=== PATIENT | male | born 1940 | race Caucasian/White ===

== ENCOUNTER 2017-03-09 08:46 | Outpatient (CLI) | payer MEDICARE, OTHER ==
[2017-03-09 14:25] LABS: BASOPHILS # (AUTO) 0.1 10^3/uL (0.0-0.1); BASOPHILS % (AUTO) 0.8 %; EOSINOPHILS # (AUTO) 0.2 10^3/uL (0.0-0.7); EOSINOPHILS % (AUTO) 2.6 %; HCT - HEMATOCRIT 45.3 % (42.0-52.0); HGB - HEMOGLOBIN 15.6 g/dL (14.0-18.0); LYMPHOCYTES # (AUTO) 1.6 10^3/uL (1.5-3.5); LYMPHOCYTES % (AUTO) 22.2 %; MEAN CORPUSCULAR HEMOGLOBIN 33.1 pg (27.0-31.0); MEAN CORPUSCULAR HGB CONC 34.4 g/dL (32.0-36.0); MEAN CORPUSCULAR VOLUME 96.1 fL (80.0-94.0); MONOCYTES # (AUTO) 0.5 10^3/uL (0.0-1.0); MONOCYTES % (AUTO) 6.8 %; NEUTROPHILS # (AUTO) 4.8 10^3/uL (1.5-6.6); NEUTROPHILS % (AUTO) 67.6 %; NUCLEATED RED BLOOD CELLS AUTO 0.1 /100WBC; RED BLOOD COUNT 4.71 10^6/uL (4.70-6.10); RED CELL DISTRIBUTION WIDTH 13.3 % (12.0-15.0); UNCORRECTED WHITE BLOOD COUNT 7.1 x10^3/uL; WHITE BLOOD COUNT 7.1 x10^3/uL (4.8-10.8)
[2017-03-09 14:37] LABS: ALBUMIN/GLOBULIN RATIO 1.6 (1.0-2.2); BILIRUBIN,TOTAL 0.9 mg/dL (0.2-1.0); CALCIUM 10.2 mg/dL (8.5-10.3); CREATININE 0.8 mg/dL (0.6-1.2); POTASSIUM 4.5 mmol/L (3.5-5.0); TOTAL PROTEIN 6.9 g/dL (6.7-8.2)
== END 2017-03-09 08:47 | disposition home or self-care (01) ==
LOC: LAB.R 08:46
PROVIDERS: ATTEND Internal Medicine
DX: I10 Essential (primary) hypertension (principal); Z79.899 Other long term (current) drug therapy
CPT/HCPCS: 80053; 84443; 85025

== ENCOUNTER 2017-06-02 18:50 | Emergency (ER) | payer MEDICARE, OTHER ==
--- NOTE | 2017-06-02 19:57 | ED Physician Documentation ---
History of Present Illness - Stated complaint Stated Complaint: SORE THROAT - Chief complaint Chief Complaint: General - History obtained from History obtained from: Patient, Family - History of Present Illness Timing: Other (4 days of intermittently productive cough, body aches and subjective fevers and chills with sore throat mild rhinorrhea.) Review of Systems Constitutional: reports: Fever, Chills, Fatigue Ears: reports: Ear pain Nose: reports: Rhinorrhea / runny nose, Congestion Throat: reports: Sore throat Respiratory: reports: Cough. denies: Dyspnea GI: denies: Abdominal Pain PD PAST MEDICAL HISTORY - Past Medical History Cardiovascular: Hypertension Respiratory: None Endocrine/Autoimmune: None GI: None : None HEENT: Chronic hearing loss Psych: None Musculoskeletal: None Derm: None - Past Surgical History Past Surgical History: Yes General: Colonoscopy Ortho: Spine surgery Derm: Skin cancer surgery - Present Medications Home Medications: Ambulatory Orders Medication Instructions Recorded Confirmed Lisinopril [Zestril] 20 mg PO BID 09/13/13 06/02/17 Doxycycline Hyclate 20 mg PO DAILY 09/24/15 06/02/17 Amlodipine Besylate [Norvasc] 2.5 mg PO BID 06/02/17 06/02/17 Amox/Clav 875/125 [Augmentin] 1 each PO Q12H #20 tablet 06/02/17 Benzonatate [Tessalon] 200 mg PO TID PRN #20 capsule 06/02/17 Meloxicam 7.5 mg PO BID 06/02/17 06/02/17 - Allergies Allergies/Adverse Reactions: Allergies Allergy/AdvReac Type Severity Reaction Status Date / Time No Known Drug Allergies Allergy Verified 06/02/17 19:57 - Social History Does the pt smoke?: No Smoking Status: Never smoker Does the pt drink ETOH?: Yes Does the pt have substance abuse?: No PD ED PE NORMAL - Vitals Vital signs reviewed: Yes - General General: Alert and oriented X 3, No acute distress - HEENT HEENT: Pharynx benign. No: Ears normal (BOM) - Neck Neck: Supple, no meningeal sign, No bony TTP - Cardiac Cardiac: RRR, No murmur - Respiratory Respiratory: No respiratory distress, Clear bilaterally - Abdomen Abdomen: Non tender - Derm Derm: No rash - Neuro Neuro: Alert and oriented X 3, Normal speech - Psych Psych: Normal mood, Normal affect Results - Vitals Vitals: Vital Signs - 24 hr 06/02/17 18:54 Temperature 99.3 C H Heart Rate 70 Respiratory 18 Rate Blood Pressure 172/83 H O2 Saturation 97 Oxygen O2 Source Room air - Labs Labs: Laboratory Tests 06/02/17 19:48 Group A Strep Rapid Negative - Rads (name of study) 2v chest Radiology: EMP read contemporaneously (NAD) Departure - Departure Disposition: Home, Self Care Clinical Impression: BOM (bilateral otitis media) Qualifiers: Otitis media type: suppurative Chronicity: acute Recurrence: not specified as recurrent Spontaneous tympanic membrane rupture: without spontaneous rupture Qualified Code(s): H66.003 - Acute suppurative otitis media without spontaneous rupture of ear drum, bilateral Condition: Good Record reviewed to determine appropriate education?: Yes Instructions: ED Otitis Media Acute Adult Prescriptions: Amox/Clav 875/125 [Augmentin] 1 each PO Q12H #20 tablet Benzonatate [Tessalon] 200 mg PO TID PRN #20 capsule PRN Reason: Cough Comments: Call your doctor to arrange a follow-up appointment, make the next available appointment. In the interim, return anytime if worse or if new symptoms develop. Your blood pressure was elevated today on check into the emergency department. This does not mean that you have hypertension, it is a common phenomenon to come to the emergency department and have elevated blood pressure. I recommend that she see her primary care physician within the week to have it rechecked when you are feeling better.
[2017-06-02 20:08] LABS: RAPID STREP SCREEN REAGENT QC YELLOW (YELLOW)
--- NOTE | 2017-06-02 21:07 | XRAY Preliminary Report ---
Exam: XR Chest 2 View PA/LAT IMPRESSION: No acute intrathoracic plain film abnormality. [facility] SITE ID: [id number]
--- NOTE | 2017-06-02 21:10 | XRAY Report ---
EXAM: CHEST RADIOGRAPHY EXAM DATE: 06/02/2017 08:25 PM. CLINICAL HISTORY: COUGH. COMPARISON: 09/13/2013. TECHNIQUE: 2 views. FINDINGS: Lungs/Pleura: No focal opacities evident. No pleural effusion. No pneumothorax. Normal volumes. Mediastinum: Heart and mediastinal contours are unremarkable. Other: None. IMPRESSION: No acute intrathoracic plain film abnormality. [facility] Referring Provider Line: [phone] SITE ID: [id number]
[2017-06-02] MEDS ORDERED: AMOX/CLAV 875 MG/125 MG TABLET PO STA (21:11)
[2017-06-02] MEDS ORDERED: BENZONATATE 100 MG CAPSULE PO STA (21:15)
[2017-06-02] MEDS ORDERED: AMOX/CLAV 875 MG/125 MG TABLET PO ONE ×2 (21:37)
[2017-06-02] MEDS ORDERED: BENZONATATE 100 MG CAPSULE PO ONE (21:37)
[2017-06-02 21:46] VITALS: BP 146/83
== END 2017-06-02 21:42 | disposition home or self-care (01) ==
LOC: ED 18:50
DX: H66.003 Acute suppurative otitis media without spontaneous rupture of ear drum, bilateral (principal); I10 Essential (primary) hypertension; H91.90 Unspecified hearing loss, unspecified ear
CPT/HCPCS: 71020; 87070; 87430; 99282; 99283; A9270

== ENCOUNTER 2018-03-08 08:00 | Outpatient (CLI) | payer MEDICARE, OTHER ==
[2018-03-08 15:09] LABS: BASOPHILS % (AUTO) 0.6 %; EOSINOPHILS # (AUTO) 0.2 10^3/uL (0.0-0.7); EOSINOPHILS % (AUTO) 2.5 %; HGB - HEMOGLOBIN 16.2 g/dL (14.0-18.0); LYMPHOCYTES % (AUTO) 29.4 %; MEAN CORPUSCULAR HEMOGLOBIN 33.2 pg (27.0-31.0); MEAN CORPUSCULAR HGB CONC 34.3 g/dL (32.0-36.0); MEAN CORPUSCULAR VOLUME 96.7 fL (80.0-94.0); MEAN PLATELET VOLUME 9.5 fL (7.4-11.4); MONOCYTES # (AUTO) 0.5 10^3/uL (0.0-1.0); MONOCYTES % (AUTO) 7.6 %; NEUTROPHILS # (AUTO) 4.2 10^3/uL (1.5-6.6); NEUTROPHILS % (AUTO) 59.9 %; PLT - PLATELET COUNT 161 10^3/uL (130-450); RED BLOOD COUNT 4.88 10^6/uL (4.70-6.10); RED CELL DISTRIBUTION WIDTH 12.7 % (12.0-15.0); WHITE BLOOD COUNT 6.9 x10^3/uL (4.8-10.8)
[2018-03-08 15:24] LABS: ALBUMIN 4.2 g/dL (3.2-5.5); ALBUMIN/GLOBULIN RATIO 1.3 (1.0-2.2); ALKALINE PHOSPHATASE 43 IU/L (42-121); ALT ALANINE AMINOTRANSFERASE 34 IU/L (10-60); AST ASPARTATE AMINOTRANSFERASE 27 IU/L (10-42); BILIRUBIN,TOTAL 1.1 mg/dL (0.2-1.0); BUN - BLOOD UREA NITROGEN 19 mg/dL (6-20); CALCIUM 10.2 mg/dL (8.5-10.3); CARBON DIOXIDE - CO2 28 mmol/L (21-32); CHLORIDE 99 mmol/L (101-111); CHOL/HDL RATIO 5.5 (<5.0); CHOLESTEROL 182 mg/dL; CREATININE 0.8 mg/dL (0.6-1.2); GFR - MDRD 94 (>89); GLUCOSE 112 mg/dL (70-100); HDL CHOLESTEROL 33 mg/dL; LDL CHOLESTEROL,CALCULATED 99 mg/dL; SODIUM 133 mmol/L (135-145); TOTAL PROTEIN 7.4 g/dL (6.7-8.2); VLDL CHOLESTEROL 50 mg/dL
== END 2018-03-08 08:01 ==
LOC: LAB.R 08:00
PROVIDERS: ATTEND Internal Medicine
DX: E78.5 Hyperlipidemia, unspecified (principal); R51 Headache; I10 Essential (primary) hypertension; Z79.899 Other long term (current) drug therapy
CPT/HCPCS: 80053; 80061; 83721; 85025

== ENCOUNTER 2018-03-25 07:59 | Outpatient (CLI) | payer MEDICARE, OTHER ==
[2018-03-25 14:42] LABS: HB2 TOTAL 17.9 g/dL; HEMOGLOBIN A1C 0.68 g/dL; HEMOGLOBIN A1C % 5.6 % (4.6-6.2)
== END 2018-03-25 08:00 | disposition home or self-care (01) ==
LOC: LAB.R 07:59
PROVIDERS: ATTEND Internal Medicine
DX: R73.9 Hyperglycemia, unspecified (principal)
CPT/HCPCS: 82947; 83036

== ENCOUNTER 2019-11-02 10:37 | Outpatient (CLI) | payer MEDICARE, OTHER ==
[2019-11-02 11:22] LABS: EOSINOPHILS % (AUTO) 0.5 %; HGB - HEMOGLOBIN 14.2 g/dL (14.0-18.0); LYMPHOCYTES % (AUTO) 52.4 %; MEAN CORPUSCULAR HEMOGLOBIN 34.1 pg (27.0-31.0); MEAN CORPUSCULAR HGB CONC 34.5 g/dL (32.0-36.0); MEAN CORPUSCULAR VOLUME 98.8 fL (80.0-94.0); MEAN PLATELET VOLUME 9.8 fL (7.4-11.4); MONOCYTES # (AUTO) 0.1 10^3/uL (0.0-1.0); MONOCYTES % (AUTO) 3.7 %; NEUTROPHILS # (AUTO) 0.8 10^3/uL (1.5-6.6); NEUTROPHILS % (AUTO) 42.9 %; PLT - PLATELET COUNT 113 10^3/uL (130-450); RED BLOOD COUNT 4.17 10^6/uL (4.70-6.10); RED CELL DISTRIBUTION WIDTH 13.9 % (12.0-15.0)
[2019-11-02 11:30] LABS: WHITE BLOOD COUNT 1.9 x10^3/uL (4.8-10.8)
[2019-11-02 11:41] LABS: ALBUMIN 4.2 g/dL (3.2-5.5); ALBUMIN/GLOBULIN RATIO 1.6 (1.0-2.2); ALKALINE PHOSPHATASE 39 IU/L (42-121); ALT ALANINE AMINOTRANSFERASE 39 IU/L (10-60); AST ASPARTATE AMINOTRANSFERASE 27 IU/L (10-42); BILIRUBIN,TOTAL 1.3 mg/dL (0.2-1.0); BUN - BLOOD UREA NITROGEN 24 mg/dL (6-20); CALCIUM 10.5 mg/dL (8.5-10.3); CARBON DIOXIDE - CO2 27 mmol/L (21-32); CHLORIDE 100 mmol/L (101-111); CHOL/HDL RATIO 5.2 (<5.0); CHOLESTEROL 183 mg/dL; CREATININE 0.8 mg/dL (0.6-1.2); GFR - MDRD 94 (>89); GLUCOSE 121 mg/dL (70-100); HDL CHOLESTEROL 35 mg/dL; LDL CHOLESTEROL,CALCULATED 111 mg/dL; LDL/HDL RATIO 3.2 (<3.6); SODIUM 135 mmol/L (135-145); TOTAL PROTEIN 6.9 g/dL (6.7-8.2); VLDL CHOLESTEROL 37 mg/dL
[2019-11-02 11:42] LABS: RBC MORPHOLOGY (MULTIPLE) 1+ ANISOCYTOSIS (NORMAL)
[2019-11-02 11:57] LABS: THYROID STIMULATING HORMONE 1.74 uIU/mL (0.34-5.60)
[2019-11-02 11:58] LABS: FREE T4 (FREE THYROXINE) 0.93 ng/dL (0.58-1.64)
[2019-11-02 12:01] LABS: FERRITIN 800.8 ng/mL (23.9-336.2)
== END 2019-11-02 10:38 | disposition home or self-care (01) ==
LOC: LAB 10:37
PROVIDERS: ATTEND Family Medicine
DX: G25.81 Restless legs syndrome (principal); M18.11 Unilateral primary osteoarthritis of first carpometacarpal joint, right hand; R73.9 Hyperglycemia, unspecified; E66.3 Overweight; E78.5 Hyperlipidemia, unspecified; I10 Essential (primary) hypertension
CPT/HCPCS: 36415; 80053; 80061; 82728; 83721; 84439; 84443; 84481; 85025

== ENCOUNTER 2019-11-07 10:31 | Outpatient (CLI) | payer MEDICARE, OTHER ==
[2019-11-07 11:11] LABS: EOSINOPHILS % (AUTO) 0.5 %; HGB - HEMOGLOBIN 13.2 g/dL (14.0-18.0); LYMPHOCYTES % (AUTO) 53.6 %; MEAN CORPUSCULAR HEMOGLOBIN 33.1 pg (27.0-31.0); MEAN CORPUSCULAR HGB CONC 33.9 g/dL (32.0-36.0); MEAN CORPUSCULAR VOLUME 97.5 fL (80.0-94.0); MEAN PLATELET VOLUME 10.3 fL (7.4-11.4); MONOCYTES % (AUTO) 2.6 %; NEUTROPHILS % (AUTO) 43.3 %; PLT - PLATELET COUNT 82 10^3/uL (130-450); RED BLOOD COUNT 3.99 10^6/uL (4.70-6.10); RED CELL DISTRIBUTION WIDTH 14.2 % (12.0-15.0)
[2019-11-07 11:32] LABS: PLATELET ESTIMATE, MANUAL DECREASED (<130,000) (NORMAL); PLATELET MORPHOLOGY NORMAL APPEARANCE (NORMAL); RBC MORPHOLOGY (MULTIPLE) NORMAL APPEARANCE (NORMAL)
[2019-11-07 11:37] LABS: WHITE BLOOD COUNT 1.9 x10^3/uL (4.8-10.8)
[2019-11-07 11:38] LABS: ABNORMAL LYMPHS % (MANUAL) 0 %; BAND NEUTROPHILS % (MANUAL) 0 %
[2019-11-07 11:39] LABS: DIFFERENTIAL COMMENT MANUAL DIFFERENTIAL; LYMPHOCYTES # (MANUAL) 0.9 10^3/uL (1.5-3.5); LYMPHOCYTES % (MANUAL) 49 %; MONOCYTES # (MANUAL) 0.2 10^3/uL (0.0-1.0)
== END 2019-11-07 10:32 | disposition home or self-care (01) ==
LOC: LAB 10:31
PROVIDERS: ATTEND Family Medicine
DX: J18.9 Pneumonia, unspecified organism (principal); G25.81 Restless legs syndrome; M18.11 Unilateral primary osteoarthritis of first carpometacarpal joint, right hand; R73.9 Hyperglycemia, unspecified; E78.5 Hyperlipidemia, unspecified; I10 Essential (primary) hypertension; D72.819 Decreased white blood cell count, unspecified
CPT/HCPCS: 36415; 85025

== ENCOUNTER 2020-01-31 08:00 | Outpatient (CLI) | payer MEDICARE, OTHER ==
[2020-01-31 16:49] LABS: HGB - HEMOGLOBIN 10.8 g/dL (14.0-18.0); LYMPHOCYTES # (AUTO) 0.4 10^3/uL (1.5-3.5); LYMPHOCYTES % (AUTO) 30.8 %; MEAN CORPUSCULAR HEMOGLOBIN 35.8 pg (27.0-31.0); MEAN CORPUSCULAR VOLUME 108.3 fL (80.0-94.0); MEAN PLATELET VOLUME 11.6 fL (7.4-11.4); MONOCYTES # (AUTO) 0.1 10^3/uL (0.0-1.0); MONOCYTES % (AUTO) 5.1 %; NEUTROPHILS # (AUTO) 0.7 10^3/uL (1.5-6.6); NEUTROPHILS % (AUTO) 62.4 %; PLT - PLATELET COUNT 36 10^3/uL (130-450); RED BLOOD COUNT 3.02 10^6/uL (4.70-6.10); RED CELL DISTRIBUTION WIDTH 16.1 % (12.0-15.0)
[2020-01-31 18:36] LABS: WHITE BLOOD COUNT 1.2 x10^3/uL (4.8-10.8)
[2020-01-31 18:51] LABS: PLATELET ESTIMATE, MANUAL DECREASED (<130,000) (NORMAL); PLATELET MORPHOLOGY NORMAL APPEARANCE (NORMAL)
[2020-01-31 18:52] LABS: DIFFERENTIAL COMMENT MANUAL=AUTO DIFF
== END 2020-01-31 23:59 | disposition home or self-care (01) ==
LOC: LAB.WCP 08:00
PROVIDERS: ATTEND Family Medicine
DX: D72.819 Decreased white blood cell count, unspecified (principal)
CPT/HCPCS: 36415; 85025

== ENCOUNTER 2020-04-09 09:44 | Outpatient (CLI) | payer MEDICARE, OTHER | END 2020-04-09 09:45 | disposition home or self-care (01) | LOC: RT 09:44 | PROVIDERS: ATTEND Internal Medicine Hematology & Oncology | DX: C92.40 Acute promyelocytic leukemia, not having achieved remission (principal); R29.6 Repeated falls | CPT/HCPCS: 93005 ==

== ENCOUNTER 2020-04-12 09:39 | Outpatient (CLI) | payer MEDICARE, OTHER | END 2020-04-12 09:40 | disposition home or self-care (01) | LOC: RT 09:39 | PROVIDERS: ATTEND Internal Medicine Cardiovascular Disease | DX: Z01.818 Encounter for other preprocedural examination (principal); Z20.828 Contact with and (suspected) exposure to other viral communicable diseases; Z79.899 Other long term (current) drug therapy; C92.40 Acute promyelocytic leukemia, not having achieved remission | CPT/HCPCS: 93005; U0004; 81599 ==

== ENCOUNTER 2020-04-14 11:24 | Outpatient (CLI) | payer MEDICARE, OTHER ==
[2020-04-14 12:04] LABS: BASOPHILS # (AUTO) 0.2 10^3/uL (0.0-0.1); BASOPHILS % (AUTO) 2.1 %; EOSINOPHILS # (AUTO) 0.3 10^3/uL (0.0-0.7); EOSINOPHILS % (AUTO) 2.8 %; HGB - HEMOGLOBIN 11.4 g/dL (14.0-18.0); LYMPHOCYTES # (AUTO) 1.4 10^3/uL (1.5-3.5); LYMPHOCYTES % (AUTO) 14.6 %; MEAN CORPUSCULAR HEMOGLOBIN 34.4 pg (27.0-31.0); MEAN CORPUSCULAR HGB CONC 32.6 g/dL (32.0-36.0); MEAN CORPUSCULAR VOLUME 105.7 fL (80.0-94.0); MEAN PLATELET VOLUME 10.4 fL (7.4-11.4); MONOCYTES # (AUTO) 1.1 10^3/uL (0.0-1.0); MONOCYTES % (AUTO) 11.3 %; NEUTROPHILS # (AUTO) 6.3 10^3/uL (1.5-6.6); NEUTROPHILS % (AUTO) 66.1 %; PLT - PLATELET COUNT 460 10^3/uL (130-450); RED BLOOD COUNT 3.31 10^6/uL (4.70-6.10); WHITE BLOOD COUNT 9.5 x10^3/uL (4.8-10.8)
== END 2020-04-14 11:25 | disposition home or self-care (01) ==
LOC: LAB 11:24
PROVIDERS: ATTEND Surgery
DX: Z01.812 Encounter for preprocedural laboratory examination (principal); C92.40 Acute promyelocytic leukemia, not having achieved remission
CPT/HCPCS: 36415; 85025; 86850; 86900; 86901

== ENCOUNTER 2020-04-16 06:34 | Day surgery (SDC) | payer MEDICARE, OTHER ==
[~2020-04-16 06:34] MED LIST: CEFAZOLIN SODIUM IN 0.9 % NACL 2 GM/100 ML BAG IV ONE
[2020-04-16] MEDS ORDERED: LIDOCAINE-MPF 2% 5 ML VIAL IM ONE (06:35)
[2020-04-16] MEDS ORDERED: PROPOFOL 200 MG/20 ML VIAL IVP ONE (06:35)
[2020-04-16] MEDS ORDERED: MIDAZOLAM 2 MG/2 ML VIAL IVP ONE (06:35)
[2020-04-16] MEDS ORDERED: KETAMINE 500 MG/10 ML VIAL IVP ONE (06:35)
[2020-04-16] MEDS ORDERED: LACTATED RINGERS 1,000 ML IV ONE (06:43)
[2020-04-16] MEDS ORDERED: BUPIVACAINE 0.5% PF 30 ML VIAL ONE (07:04)
[2020-04-16] MEDS ORDERED: LIDOCAINE 1% 50 ML MDV ONE (07:04)
[2020-04-16] MEDS ORDERED: LIDOCAINE 1%-EPI 1:100000 20 ML MDV ONE (07:04)
--- NOTE | 2020-04-16 07:14 | ANESTHESIA ---
Pre-Anesthesia VS, & Labs - Diagnosis acute promylocytic leukemia - Procedure port placement Vital Signs: Temp Pulse Resp BP Pulse Ox 36.7 C 71 16 137/78 H 99 04/16/20 06:44 04/16/20 06:44 04/16/20 06:44 04/16/20 06:44 04/16/20 06:44 Height 5 ft 10 in Weight (kg) 99 kg Body Mass Index 30.7 - NPO >8 hours Home Medications and Allergies Home Medications: Ambulatory Orders Ondansetron HCl [Zofran] 8 mg PO DAILY 04/16/20 Zolpidem Tartrate 7.5 mg PO DAILY 04/16/20 lisinopriL [Zestril] 20 mg PO BID 09/13/13 Meloxicam 7.5 mg PO BID 06/02/17 Furosemide [Lasix] 40 mg PO DAILY 04/09/20 Magnesium Oxide [Mag Ox] 400 mg PO DAILY 04/09/20 Potassium Chloride 20 meq PO DAILY 04/09/20 Ondansetron HCl [Zofran] 8 mg PO DAILY 04/16/20 Zolpidem Tartrate 7.5 mg PO DAILY 04/16/20 Allergies/Adverse Reactions: Allergies Allergy/AdvReac Type Severity Reaction Status Date / Time No Known Drug Allergies Allergy Verified 04/09/20 13:34 Anes History & Medical History - Anesthetic History Anesthesia Complications: reports: No previous complications Family history of Anesthesia Complications: Denies Family history of Malignant Hyperthermia: Denies - Medical History Cardiovascular: reports: Hypertension, Arrhythmia, Other Pulmonary: reports: None (quit in 1985) Gastrointestinal: reports: GI bleed, Colon polyps Urinary: reports: Retention Neuro: reports: None Musculoskeletal: reports: Osteoarthritis, Chronic back pain Endocrine/Autoimmune: reports: None Skin: reports: None Smoking Status: Former smoker Psychosocial: reports: No issues indicated - Surgical History General: Colonoscopy Orthopedic: Spine surgery Dermatologic: Skin cancer surgery Exam General: Alert, Oriented x3, Cooperative, No acute distress Dental: WNL Mouth Openin Fingerbreadth Neck Mobility: Normal Mallampati classification: II Thyromental Distance: 4-6 cm Respiratory: Lungs clear, Normal breath sounds, No respiratory distress, No accessory muscle use Cardiovascular: Regular rate, Normal S1, Normal S2, No murmurs Abdomen: Normal bowel sounds, Soft, No tenderness, No hepatospenomegaly, No masses Extremities: No clubbing, No cyanosis, No edema, Normal pulses, No tenderness/swelling Neurological: Normal gait, Normal speech, Strength at 5/5 X4 ext, Normal tone, Sensation intact, Cranial nerves 3-12 NL, Reflexes 2+ Mental/Cognitive Status: Alert/Oriented X3, Normal for patient Cognitive Status: Within normal limits Plan Anesthesia Type: General, MAC Consent for Procedure(s) Verified and Reviewed: Yes Code Status: Attempt Resuscitation ASA classification: 3-Severe systemic disease Is this case an emergency?: No
[2020-04-16] MEDS ORDERED: LIDOCAINE 1%-EPI 1:100000 20 ML MDV SUBQ ONE ×2 (07:19→08:46)
[2020-04-16] MEDS ORDERED: BUPIVACAINE 0.5% PF 30 ML VIAL SUBQ ONE ×2 (07:20→08:46)
[2020-04-16] MEDS ORDERED: SODIUM CHLORIDE 0.9% 10 ML ONE (07:20)
--- NOTE | 2020-04-16 09:10 | OPERATIVE REPORT ---
Operative Report - General Procedure Date: 04/16/20 Planned Procedure: Left Power Port Placement Pre-Op Diagnosis: Acute promyelocytic leukemia Procedure Performed: Left Power Port Placement Post Op Diagnosis: Acute promyelocytic leukemia - Procedure Note Primary Surgeon: Farhan Anesthesia Provider: Juliocesar Anesthesia Technique: Local, MAC Pathology: None Estimated Blood Loss (mL): 5 Findings: Port in good position Complications: None apparent - Other Other Information/Narrative: After obtaining informed consent, the patient is brought to the operating room and placed in supine position on the operating table. Following successful induction of sedation with monitored anesthesia care and appropriate padding of all bony prominences, the left chest and neck were prepped and draped in the standard surgical fashion. A timeout was held per scope protocol. All elements of the surgical safety checklist were followed before, during, and after the procedure. Following infiltration with local anesthetic to create a field block, the left subclavian vein was accessed in the deltopectoral groove. The J-wire was gently placed into the vein. Fluoroscopy was used to confirm the position of the wire and in the subclavian vein. We anesthetized the existing healed scar in the area around it for placement of the port itself. An incision was created here and carried down through the skin and subcutaneous tissue. A pocket was created with blunt dissection. The port tubing was attached to the tunneling device and passed from the access site of the vein into the pocket. It was trimmed to an appropriate length and the port attached. The port was sewn into place in the pocket. The dilator and introducer were then passed over the J-wire that was in the subclavian vein. The J-wire and dilator were removed leaving only the introducer. The tubing was then passed through the introducer and the introducer cracked and removed per route delivery supervisor's directions. The port was then checked for function and flushed and cathy easily. Additional local anesthetic was applied to the chest wall. The port pocket was closed with interrupted Vicryl sutures and Monocryl stitches were placed in both skin incision sites. All sponge, needle, and instrument counts were correct at the conclusion of the case. Chest x-ray in the postanesthesia care unit revealed the port in good po sition in the superior vena cava without evidence of pneumothorax.
[2020-04-16 09:33] VITALS: BP 134/65
--- NOTE | 2020-04-16 09:33 | XRAY Report ---
Reason: PORT PLACEMENT Procedure Date: 04/16/2020 Accession Number: [id number] / [id number] Procedure: FL - OR C-Arm Procedure CPT Code: Final Report FULL RESULT: PROCEDURE: OR C-Arm Procedure INDICATIONS: PORT PLACEMENT TECHNIQUE: Single spot fluoroscopic intraoperative view. COMPARISON: None. FINDINGS: Spot fluoroscopic intraoperative images demonstrating left chest port with the catheter tip projecting in the upper SVC. Reviewed by: Anthony John MD on 04/16/2020 9:32 AM PDT Approved by: Anthony John MD on 04/16/2020 9:32 AM PDT Station ID: [id number]
--- NOTE | 2020-04-16 10:06 | XRAY Report ---
PROCEDURE: Post Port Placement 1V CXR INDICATIONS: Left port TECHNIQUE: One view of the chest was acquired. COMPARISON: 06/02/2017 FINDINGS: Surgical changes and devices: Left chest wall Port-A-Cath tip is in SVC.. Lungs and pleura: No pleural effusions or pneumothorax. Mild pulmonary vascular congestion is seen. Small left pleural effusion/thickening is likely present. No definite focal infiltrate. There is mild pulmonary edema. Mediastinum: Mediastinal contours appear normal. Heart size is enlarged. Bones and chest wall: No suspicious bony lesions. Overlying soft tissues appear unremarkable. IMPRESSION: Left chest wall Port-A-Cath tip is in SVC. Mild congestive changes and mild pulmonary edema. No gross pneumothorax. Reviewed by: Stevenson Shepard MD on 04/16/2020 10:04 AM PDT Approved by: Stevenson Shepard MD on 04/16/2020 10:04 AM PDT Station ID: [id number]
== END 2020-04-16 06:35 | disposition home or self-care (01) ==
LOC: SDS 06:34
PROVIDERS: ATTEND Surgery
DX: C92.40 Acute promyelocytic leukemia, not having achieved remission (principal); D69.6 Thrombocytopenia, unspecified; I10 Essential (primary) hypertension; M19.90 Unspecified osteoarthritis, unspecified site; Z87.891 Personal history of nicotine dependence; Z79.52 Long term (current) use of systemic steroids; Z79.82 Long term (current) use of aspirin; Z79.1 Long term (current) use of non-steroidal anti-inflammatories (NSAID); Z79.899 Other long term (current) drug therapy
CPT/HCPCS: 36561; 71045; C1788; J0690; J7120

== ENCOUNTER 2020-04-16 09:51 | Outpatient (CLI) | payer MEDICARE, OTHER ==
--- NOTE | 2020-04-16 17:41 | CONSULTATION NOTE ---
Palliative Care Follow Up - Referral Referring Provider: Dr. Chu Jones Time of Visit: [id number] Referral setting: [facility] [place] Referral Reason: Anxiety/AML/Goals of care - Information Sources Records reviewed: RN notes reviewed, Previous records reviewed History/Review of Systems obtained from: Patient, Family (daughter Fany present and s/o Niik present) Exam limitations: Clinical condition (very [place]; just came from amb surgery) - History of Present Illness Update Brief HPI Update: This is a 79-year-old gentleman who is actually been in fairly good health, until he presented with abnormal blood test on 10/2019. His only symptom was increased fatigue and more activity intolerance. He went on to winter living in [place], but returned early because of COVID-19, and in follow-up with his primary, was found to have worsening labs on 01/31 2020 with a WBC of 1.2, hematocrit 33%, and platelets of 36. 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 His most recent bone marrow on 04/02 did show borderline molecular remission. He recently saw Dr. Rolle, and will continue with an evaluation, but does seem to be doing better. His only residual is lower extremity edema, he is somewhat anxious, and is to start his consolidation therapy today. He just had a port placed, is needing potassium replacement, and will also start his oral tretinoin. Palliative care is meeting with patient, to follow for symptom management, anticipatory guidance, and advanced care planning. Patient is somewhat overwhelmed with his current situation today, agreed we would just start with rapport building, as well as reviewed current support system. Social History - Living Situation Living arrangement: At home Living Situation: With spouse/s.o. Support System: Patient has long-term had a cabin on [address], and travels back and forth to the [place]. 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 He does have significant other Niki, they have been together for 14 years. He has 1 daughter Fany, who has been up providing support. Medications/Allergies - Medications Home Medications: Ambulatory Orders Medication Instructions Recorded Confirmed lisinopriL [Zestril] 20 mg PO BID 09/13/13 04/17/20 Furosemide [Lasix] 80 mg PO DAILY 04/09/20 04/17/20 Magnesium Oxide [Mag Ox] 400 mg PO DAILY 04/09/20 04/17/20 Potassium Chloride 20 meq PO DAILY 04/09/20 04/17/20 Lidocaine/Prilocain 2.5% Cream 30 applic TOP DAILY PRN #1 tube 04/16/20 04/17/20 [Emla 2.5% Cream] Ondansetron HCl [Zofran] 8 mg PO DAILY 04/16/20 04/17/20 Zolpidem Tartrate 7.5 mg PO DAILY 04/16/20 04/17/20 Acyclovir 400 mg PO BID 04/17/20 04/17/20 Aspirin 81 mg PO DAILY 04/17/20 04/17/20 Cholecalciferol (Vitamin D3) 1,000 units PO DAILY 04/17/20 04/17/20 [Vitamin D3] Naproxen [Naprosyn] 1 tab PO DAILY PRN 04/17/20 04/17/20 [place]-3/Dha/Epa/Fish Oil [Fish Oil 1,000 mg PO DAILY 04/17/20 04/17/20 1,000 mg Softgel] Omeprazole 20 mg PO DAILY 04/17/20 04/17/20 Tretinoin 50 mg PO BID 04/17/20 04/17/20 - Allergies Allergies/Adverse Reactions: Allergies Allergy/AdvReac Type Severity Reaction Status Date / Time No Known Drug Allergies Allergy Verified 04/09/20 13:34 Review of Systems - Constitutional Constitutional: reports: Fatigue, Weight stable. denies: Fever, Chills - Eyes Eyes: reports: Vision loss, Corrective lenses - Ears, Nose & Throat Ears, Nose & Throat: reports: Hearing loss, Hearing aids - Cardiovascular Cardiovascular: reports: Edema (new symptoms since hospitalization), Decr. exercise tolerance - Respiratory Respiratory: denies: Cough, SOB at rest - Gastrointestinal Gastrointestinal: reports: Good appetite. denies: Constipation, Diarrhea - Musculoskeletal Musculoskeletal: reports: Back pain, Stiffness, Muscle weakness - Integumentary Integumentary: reports: Dryness - Psychiatric Psychiatric: denies: Depression, Anxiety - Hematologic/Lymphatic Hematologic/Lymphatic: reports: Anemia - All Other Systems All Other Systems: reports: Reviewed and negative Physical Exam - Vital Signs Pulse Rate: 61 Respiratory Rate: 18 Blood Pressure: 134/71 - Physical Exam General Appearance: positive: Alert, Mild distress Eyes Bilateral: positive: Normal inspection ENT: positive: Hearing loss, Hearing aids, Dry mouth. negative: Mouth lesions Neck: positive: Trachea midline Cardiovascular: positive: Regular rate & rhythm Respiratory: positive: No respiratory distress Abdomen: positive: Non-tender, Soft Skin: positive: Pallor, Dryness, Other (right upper arm/old PICC site) Extremities: positive: Pedal edema (2+ bilateral) Neurologic/Psychiatric: positive: Oriented x3, Weakness, Flat affect, Other (coming off surgery) Palliative Care - POLST Patient has POLST: No Pain: Pain unchanged, Location (chronic back pain; worsens with prolonged sitting) Tiredness/Fatigue: None Drowsiness/Sedation: None Nausea: None Anorexia: None Dyspnea: None Depression: None Anxiety: None Feelings of wellbeing/Perceived Quality of Life: Good, Acceptable, Improved Sleep: Sleep improved Constipation: No Performance Status: Patient's activity tolerance is improving, he was quite deconditioned with his prolonged hospitalization. He is able to ambulate, and manage his own ADLs. He is to start physical therapy. - Palliative Care Discussion: Patient's summary of what is happening, is "it is what it is". His family support that this is often how he approaches things, quite pragmatically. He is somewhat surprised, as he has not felt sick, and has had multiple traumas related to his journey over the last few weeks. He is somewhat anxious today, has just received his port, trying to get his bearings about the what is next. He does feel well supported by his significant other and his daughter who is up providing support as well. Niki's significant other, is appropriately tearful, and concerned. They have been together for 14 years, it was quite difficult while he was in the hospital as he was not allowed visitors, and quite dependent on him providing information. His daughter Ivis, lives near [place], has been staying nearby to provide support, she has 3 children, they are going to come visit for the holiday weekend. Things have been quite fluctuating as far as emotionally and hoping things will settle down, as gets into routine. Results - Lab Results Lab results reviewed: Yes Impression and Recommendations - Palliative Care Impression: This is a memo 79-year-old gentleman with acute promyelocytic Jaimee, and intermediate risk group. He is starting consolidation therapy today, has had a complicated course up to this point. He presents with low symptom burden, concern for complications, and followed by cardiology. Palliative care to provide support for symptom management and anticipatory guidance. Recommendations/Counseling Done: 1. Anxiety. Patient starting consolidation therapy, concerns regarding future planning and what to expect, just had port placed and getting the plan of care in place. Counseling provided to normalize feelings of uncertainty and introduce the role of palliative care for both management of symptoms and psychosocial support. 2. Acute promyelocytic leukemia. Patient with fairly intense of treatment regimen, has had history of complications, will need continued monitoring. Is starting to recover, and hoping to return to baseline functional status. Remains with residual lower extremity edema and persistent fatigue. Continue to monitor. 3. PICC exit site right upper extremity. Small amount of drainage noted from old PICC line site, no signs or symptoms of infection, no lymphadenopathy. Encouraged to keep clean and dry, and continue to cover with Band-Aid, reassured will heal and at this point in time no complications noted.Instructed on signs and symptoms of infection. 4. Advanced care planning. Did not explore at this visit, patient's short term goals are to understand current plan of care and treatment, oncology appointment pending. Patient has good psychosocial and family support, introduced the role of palliative care, and support for both patient and family. Plan to meet next week, will further explore advance care planning needs. Time Spent: 60 minutes with greater than 50% of this done in counseling regarding role of palliative care, medication reconciliation, management of symptoms.
== END 2020-04-16 09:52 | disposition home or self-care (01) ==
LOC: PC 09:51
PROVIDERS: ATTEND Nurse Practitioner Adult Health
DX: Z51.5 Encounter for palliative care (principal); F41.9 Anxiety disorder, unspecified; R60.0 Localized edema; R53.83 Other fatigue; M54.9 Dorsalgia, unspecified; C92.40 Acute promyelocytic leukemia, not having achieved remission; Z79.899 Other long term (current) drug therapy; Z79.82 Long term (current) use of aspirin; Z95.828 Presence of other vascular implants and grafts
CPT/HCPCS: 99205

== ENCOUNTER 2020-04-27 11:20 | Outpatient (CLI) | payer MEDICARE, OTHER ==
--- NOTE | 2020-04-27 16:05 | CONSULTATION NOTE ---
Palliative Care Follow Up - Referral Referring Provider: Dr. Chu Jones Time of Visit: [id number] Referral setting: [facility] [place] Referral Reason: Anxiety/APL - Information Sources Records reviewed: RN notes reviewed, Previous records reviewed History/Review of Systems obtained from: Patient, Family (Niki joined for short time) Exam limitations: No limitations (is [place]) - History of Present Illness Update Brief HPI Update: Please see HPI 04/16 for more complete. 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 He is currently on consolidation therapy, on arsenic and tretinoin. Patient does have some fatigue, lower extremity edema, and restless leg syndrome which is improving. He has also experienced some persistent headache pain, though this did resolve with use of tramadol. He does admit to some depressive symptoms, and some persistent anxiety. Palliative care to provide support for pain and symptom management and goals of care. Social History - Living Situation Living arrangement: At home Living Situation: With spouse/s.o. Support System: Patient has his significant other Niki, whom they have been together for 12 years. She does feel like he is doing fairly well overall, but is trying to get him to be more active. His daughter is very supportive, Ivis. They did have a nice fourth with celebration, having another celebration this weekend for his birthday. Medications/Allergies - Medications Home Medications: Ambulatory Orders Medication Instructions Recorded Confirmed Magnesium Oxide [Mag Ox] 400 mg PO DAILY 04/09/20 04/28/20 Lidocaine/Prilocain 2.5% Cream 30 applic TOP DAILY PRN #1 tube 04/16/20 04/28/20 [Emla 2.5% Cream] Ondansetron HCl [Zofran] 8 mg PO TID PRN 04/16/20 04/28/20 Zolpidem Tartrate 7.5 mg PO DAILY 04/16/20 04/28/20 Acyclovir 400 mg PO BID 04/17/20 04/28/20 Aspirin [Aspirin EC] 81 mg PO DAILY 04/17/20 04/28/20 Cholecalciferol (Vitamin D3) 1,250 mcg PO DAILY 04/17/20 04/28/20 [Vitamin D3] Famotidine 20 mg PO DAILY 04/17/20 04/28/20 Lisinopril [Zestril] 20 mg PO DAILY 04/17/20 04/28/20 Naproxen Sodium 220 mg PO DAILY PRN 04/17/20 04/28/20 [place]-3 Fatty Acids/Fish Oil 1 cap PO DAILY 04/17/20 04/28/20 [[place]-3 Fish Oil 1,000 mg Sfgl] Tretinoin 50 mg PO .DAY 1-5 ON 28 CYCLE 04/17/20 04/28/20 oxyCODONE [Roxicodone] 5 mg PO Q4-6H PRN 04/17/20 04/28/20 Ropinirole HCl 1 mg PO DAILY PM 04/25/20 04/28/20 traMADol [Ultram] 50 - 100 mg PO Q6HR PRN 04/25/20 04/28/20 - Allergies Allergies/Adverse Reactions: Allergies Allergy/AdvReac Type Severity Reaction Status Date / Time No Known Drug Allergies Allergy Verified 04/09/20 13:34 Review of Systems - Constitutional Constitutional: reports: Fatigue (improving), Weakness (improving), Weight stable - Eyes Eyes: reports: Vision loss, Corrective lenses - Ears, Nose & Throat Ears, Nose & Throat: reports: Hearing loss, Hearing aids, Dry mouth. denies: Mouth lesions - Cardiovascular Cardiovascular: reports: Edema (improved though still uncomfortable), Decr. exercise tolerance. denies: Chest pain - Respiratory Respiratory: denies: SOB at rest - Gastrointestinal Gastrointestinal: reports: Constipation (intermittent), Early satiety, Other (taste changes) - Genitourinary Genitourinary: reports: Frequency, Urgency (with lasix) - Musculoskeletal Musculoskeletal: reports: Muscle aches (RLS improved with use of ropinerole), Stiffness, Muscle weakness (working with PT) - Integumentary Integumentary: reports: Dryness - Neurological Neurological: reports: General weakness, Headache (frontal; x 2 days; responded to tramadol) - Psychiatric Psychiatric: reports: Anxiety - Endocrine Endocrine: reports: Other (mild elevation BS) - Hematologic/Lymphatic Hematologic/Lymphatic: reports: Anemia (10.8) - All Other Systems All Other Systems: reports: Reviewed and negative Physical Exam - Vital Signs Temperature: 36.5 C Pulse Rate: 64 Respiratory Rate: 18 Blood Pressure: 105/58 - Physical Exam General Appearance: positive: No acute distress, Alert Eyes Bilateral: positive: Normal inspection ENT: positive: Hearing loss, Hearing aids. negative: Nosebleeds, Mouth lesions Neck: positive: Trachea midline Cardiovascular: positive: Regular rate & rhythm Respiratory: positive: No respiratory distress Abdomen: positive: Non-tender, Soft Skin: positive: Pallor, Dryness Extremities: positive: Pedal edema (1+ bilateral improved) Neurologic/Psychiatric: positive: Oriented x3, Mood/affect nml, Weakness, Flat affect Palliative Care - POLST Patient has POLST: No POLST Status: Full Code Pain: No pain Tiredness/Fatigue: Moderate (4-6) Drowsiness/Sedation: Mild (1-3) Nausea: Moderate (4-6) (reports persistent last few days) Anorexia: Mild (1-3) Dyspnea: None Depression: Mild (1-3) Anxiety: Moderate (4-6) Feelings of wellbeing/Perceived Quality of Life: Fair, Acceptable, Improved Sleep: Sleep improved Constipation: Yes, Intermittent constipation - Palliative Care Discussion: Patient feels like overall he is in fairly good shape, he does though see himself as a glass half empty kind of aarti. He has been feeling somewhat down, has enjoyed having his family over the fourth, and now again this weekend for his birthday. He is somewhat impatient with the process, anticipating getting better. He reports he has been working on getting his affairs in order, identifies his daughter Gerald Christian [phone] is his D POA. She lives in [place]. He does appreciate Niki his S/O, they have been "modeling through", he feels she is his counterbalance as a glass helpful. We did discuss in the context of advanced care planning,He would be important to get his DPOAE document here on record at the hospital. We discussed is important that his daughter understand what his wishes were, if she were to make decisions for him, he does believe they have had conversations about this, but we will continue to explore this further. Patient's goal is to get back on the golf course, he is hoping for the best, as far as quality and quantity of life. He has found this somewhat exhausting, particularly with a daily MAC appointments. Results - Lab Results Lab results reviewed: Yes Lab and Imaging Results: Total protein 5.5 Impression and Recommendations - Palliative Care Impression: This is a memo 79-year-old gentleman with acute promyelocytic Leukemia, intermittent risk group. Patient currently on consolidation therapy, has had a complicated course up to this point. He does present with fairly low symptom burden, ongoing concerns for complications and followed by cardiology. Palliative care to provide support for symptom management and anticipatory guidance. Recommendations/Counseling Done: 1. Nausea. Patient over the last couple days has presented with persistent nausea, has been taking ondansetron prior to his therapy, but feeling poorly later in the day. We did discuss he can take a second dose of his ondansetron as a PRN. He has not had any vomiting, has had taste changes, and does present with low-grade anorexia as well. 2. Anorexia. Patient with taste changes, low-grade nausea this is adding to his issues. Patient does have low protein, though does feel he is eating fairly adequately but with some early satiety. Recommended to add a nutritional supplement at least daily, with instant breakfast with milk as he tolerates this, or other protein supplement drink. Patient having poor intake day, increased to twice a day. Patient verbalizes understanding. 3. Headache. This is been intermittent in nature, has been responsive to the tramadol, no vision changes, or dizziness is attributed or associated with this. 4. Constipation. Patient has had intermittent constipation, review of use of MiraLAX 1 capful if no bowel movement x48 hours. Important to keep regular BMs with current low-grade nausea and GI issues. 5. RLS. Patient reports this is currently managed with his ropinirole and sleeping medication. Has improvement in symptoms. 6. Advanced care planning. Patient does have D POA for healthcare, who is his daughter. Discussion regarding role of D POA, initiated on rotation regarding goals, short-term goal is patient would like to be stronger, and return to the golf course. Counseling provided regarding normalize feelings of grief and loss in the context of living with serious illness. Time Spent: 45 minutes with greater than 50% of this done in counseling and support, review of symptom burden, and anticipatory guidance regarding advanced care planning.
== END 2020-04-27 11:21 | disposition home or self-care (01) ==
LOC: PC 11:20
PROVIDERS: ATTEND Nurse Practitioner Adult Health
DX: Z51.5 Encounter for palliative care (principal); C92.40 Acute promyelocytic leukemia, not having achieved remission; R63.0 Anorexia; R51 Headache; K59.00 Constipation, unspecified; G25.81 Restless legs syndrome; R11.0 Nausea; H54.7 Unspecified visual loss; H91.90 Unspecified hearing loss, unspecified ear; R35.0 Frequency of micturition; R39.15 Urgency of urination; Z79.82 Long term (current) use of aspirin; Z79.891 Long term (current) use of opiate analgesic; Z79.899 Other long term (current) drug therapy
CPT/HCPCS: 99215

== ENCOUNTER 2020-06-15 10:19 | Outpatient (CLI) | payer MEDICARE, OTHER ==
--- NOTE | 2020-06-15 17:45 | CONSULTATION NOTE ---
Palliative Care Follow Up - Referral Referring Provider: Dr. Chu Jones Time of Visit: 07-29 Referral setting: [facility] Referral Reason: Anxiety/Constipation/Chronic Back Pain/APL - Information Sources Records reviewed: Previous records reviewed History/Review of Systems obtained from: Patient Exam limitations: Clinical condition ([place]) - History of Present Illness Update Brief HPI Update: This is a 80-year-old gentleman with acute promyelocytic leukemia since 02/2020, intermediate group's group. Is currently receiving consolidation therapy, with arsenic trioxide Thursday through Thursday, 4 weeks on 4 weeks off and is currently on his second round. He is also taking oral tretinoin daily 2 weeks on followed by 2 weeks off/cycle. Patient continues to do fairly well, he is feeling somewhat more confident now and knows what to expect. He is pre-medicating with his ondansetron with decreased nausea and stomach discomfort. He continues with persistent back pain, right hip joint, radiating down the back of his leg, has started physical therapy, and is hopeful to return to previous level of activity. Patient feels like he is adjusting well, does have intermittent anxiety, reports his emotions to get the better of him sometimes. He is planning to play golf tomorrow, does actually feel most limited by his back and hip pain. He continues with persistent anorexia, is doing better with eating, but does have taste changes and no desire to eat but has done better with keeping his weight. His lower extremity edema has improved, he has been decreased on his diuretics, he does report hard stool and difficulty with constipation and finding program that is effective. Social History - Living Situation Living arrangement: At home Living Situation: With spouse/s.o. Support System: Patient has a significant other Niki, they have been together for over 12 years, he has a daughter who is very supportive and comes visits frequently. He has been trying to find activities to be able to decrease his isolation. Patient is hopeful to be able to "go south" if he is done with treatment in winter. Medications/Allergies - Medications Home Medications: Ambulatory Orders Medication Instructions Recorded Confirmed Magnesium Oxide [Mag Ox] 400 mg PO DAILY 04/09/20 06/04/20 Lidocaine/Prilocain 2.5% Cream 30 applic TOP DAILY PRN #1 tube 04/16/20 06/04/20 [Emla 2.5% Cream] Zolpidem Tartrate 7.5 mg PO DAILY 04/16/20 06/04/20 Acyclovir 400 mg PO BID 04/17/20 06/04/20 Aspirin [Aspirin EC] 81 mg PO DAILY 04/17/20 06/04/20 Cholecalciferol (Vitamin D3) 1,250 mcg PO DAILY 04/17/20 06/04/20 [Vitamin D3] Famotidine 20 mg PO DAILY 04/17/20 06/04/20 Lisinopril [Zestril] 20 mg PO DAILY 04/17/20 06/04/20 Naproxen Sodium 220 mg PO DAILY PRN 04/17/20 06/04/20 [place]-3 Fatty Acids/Fish Oil 1 cap PO DAILY 04/17/20 06/04/20 [[place]-3 Fish Oil 1,000 mg Sfgl] Tretinoin 50 mg PO .DAY 1-5 ON 28 CYCLE 04/17/20 06/04/20 oxyCODONE [Roxicodone] 5 mg PO Q4-6H PRN 04/17/20 06/04/20 Ropinirole HCl 1 mg PO DAILY PM 04/25/20 06/04/20 traMADol [Ultram] 50 - 100 mg PO Q6HR PRN 04/25/20 06/04/20 Diclofenac Sodium [Voltaren] 100 gm TP DAILY PRN 05/07/20 06/04/20 Furosemide [Lasix] 20 mg PO DAILY #90 tablet 05/22/20 Potassium Chloride 10 meq PO DAILY #90 tablet.er 05/22/20 Ondansetron HCl [Zofran] 4 mg PO Q8HR PRN #30 tab 06/05/20 - Allergies Allergies/Adverse Reactions: Allergies Allergy/AdvReac Type Severity Reaction Status Date / Time No Known Drug Allergies Allergy Verified 06/04/20 10:59 Review of Systems - Constitutional Constitutional: reports: Fatigue (improved), Weakness, Poor appetite, Weight stable. denies: Fever, Chills - Eyes Eyes: reports: Vision loss, Corrective lenses - Ears, Nose & Throat Ears, Nose & Throat: reports: Hearing loss, Hearing aids, Dry mouth. denies: Mouth lesions - Cardiovascular Cardiovascular: reports: Decr. exercise tolerance. denies: Lightheadedness - Respiratory Respiratory: denies: Cough, SOB at rest - Gastrointestinal Gastrointestinal: reports: Constipation, Nausea, Poor appetite, Early satiety - Genitourinary Genitourinary: reports: Frequency - Musculoskeletal Musculoskeletal: reports: Back pain, Muscle aches, Stiffness, Other (RLS) - Integumentary Integumentary: reports: Dryness - Neurological Neurological: reports: General weakness, Numbness. denies: Headache - Psychiatric Psychiatric: reports: Anxiety. denies: Depression - Hematologic/Lymphatic Hematologic/Lymphatic: reports: Anemia (12.4) - All Other Systems All Other Systems: reports: Reviewed and negative Physical Exam - Physical Exam General Appearance: positive: No acute distress, Alert Eyes Bilateral: positive: Normal inspection ENT: positive: No signs of dehydration Neck: positive: Trachea midline Respiratory: positive: No respiratory distress Abdomen: positive: Non-tender, Soft Skin: positive: Dryness Extremities: positive: Pedal edema (trace; much improved) Neurologic/Psychiatric: positive: Oriented x3, Mood/affect nml Palliative Care - POLST Patient has POLST: No POLST Status: Full Code Pain: Pain improved, Location (lower back; worsens with walking and activity; working with PT; using tramadol as needed/ aleve daily) Tiredness/Fatigue: Moderate (4-6) Drowsiness/Sedation: None Nausea: Mild (1-3) (using ondanstron in AM with good control) Anorexia: Moderate (4-6) (eating better but still no appetite; no further weight loss) Dyspnea: None Depression: None Anxiety: None Feelings of wellbeing/Perceived Quality of Life: Good, Acceptable, Improved Sleep: Variable sleep pattern (up with nocturia) Constipation: Yes, Opoid induced, Intermittent constipation Performance Status: Patient is independent in his ADLs, can ambulate short distances. His gait is somewhat ataxic. He has been working with physical therapy, feels like he does have some instruction to better be able to follow to improve his gait and decrease his pain. He feels currently he is about 50%, has improved since he has come home. - Palliative Care Discussion: Discussion today centered on reflection of his current journey, how he is adjusting, fluctuating mood, and coping mechanisms. Results - Lab Results Lab results reviewed: Yes Impression and Recommendations - Palliative Care Impression: This is a memo gentlemen with APL, intermittent risk group, currently on consolidation therapy. Treatment is of curative intent. He had had a complicated course up to this point with induction and hospitalization, but has done well with his last treatment, and has initiated his second cycle this week with knowing what to expect at this point. Palliative care to continue provide support for symptom management and anticipatory guidance. Recommendations/Counseling Done: 1. Chronic back and hip pain. Patient is receiving physical therapy instruction and support. Does premedicate intermittently with tramadol and Aleve. Feels it is manageable at this point in time. He does have topicals to apply as well, and is working with progressive ambulation. He does feel like he has improved enough he is going to play golf tomorrow. He is looking forward to this. 2. Anorexia. Patient continues with taste changes, is using ondansetron which is managing the low-grade nausea, he has maintained stable at his weight of 213. He has been able to eat, though does not feel hungry to eat. Does not feel needs further intervention at this point in time. 3. Anxiety. Counseling provided, supportive presence and listening, continue to explore concerns and feelings with current situation. 4. Constipation. Patient continues to struggle with constipation, reviewed bowel program again with recommendation of initiating MiraLAX daily, for the "motion", if patient has hard stool to increase to twice a day. Patient to get senna laxative 8.6 mg, and start 1 tab twice a day, this is the "push". He is to increase this to 2 tabs twice a day if not having a regular bowel movement. Goal is to have a regular soft BM daily, patient verbalizes understanding. 5. Advanced care planning. Patient is receiving treatment for curative intent, though does feel a fairly prolonged treatment cycle, he does have pending follow-up after this cycle of bone marrow biopsy. Short-term goals are return to the golf course, he is golfing tomorrow. He has been working on increasing socialization, and progressive support for improving his endurance and strength. Palliative care to continue patient provide support, agreed visit in 2 weeks when closer to finishing treatment cycle. Time Spent: 60 minutes with greater than 50% of this done in counseling regarding symptom management, constipation, anxiety, anticipatory guidance and coordination of care with oncology team.
== END 2020-06-15 10:20 | disposition home or self-care (01) ==
LOC: PC 10:19
PROVIDERS: ATTEND Nurse Practitioner Adult Health
DX: Z51.5 Encounter for palliative care (principal); R63.0 Anorexia; G89.29 Other chronic pain; R43.9 Unspecified disturbances of smell and taste; K59.03 Drug induced constipation; T40.2X5A Adverse effect of other opioids, initial encounter; F41.9 Anxiety disorder, unspecified; R53.1 Weakness; C92.40 Acute promyelocytic leukemia, not having achieved remission; R60.0 Localized edema; Z79.899 Other long term (current) drug therapy; Z79.891 Long term (current) use of opiate analgesic
CPT/HCPCS: 99215

== ENCOUNTER 2020-08-10 09:44 | Outpatient (CLI) | payer MEDICARE, OTHER ==
--- NOTE | 2020-08-10 11:47 | CONSULTATION NOTE ---
Palliative Care Follow Up - Referral Referring Provider: Dr. Chu Jones Time of Visit: [id number] Referral setting: [facility] – [place] Referral Reason: Insomnia/RLS/Anxiety - Information Sources Records reviewed: RN notes reviewed, Previous records reviewed History/Review of Systems obtained from: Patient, Family (s/o Niki) Exam limitations: No limitations - History of Present Illness Update Brief HPI Update: This is a 80-year-old gentleman with acute promyelocytic leukemia since 02/2020, now having moved into the low risk group. Is currently on his third round of consolidation therapy, he continues with improvement in his back pain, generalized strength, appetite, and overall sense of wellbeing. He is relieved after the bone marrow biopsy, to be doing so well. He appears in good spirits, engages well, reviewed his current symptoms he is experiencing. Patient's back pain has improved, with therapy, can now walk to an mile and a half, does still have pain with getting from sitting to standing, or with golf, but much improved overall. Also reports ongoing intermittent discomfort in his feet, feels hot and burning at nighttime, has found that he increase in ropinirole has improved some of his RLS symptoms. He does have some intermittent sharp pulsing headache pain, that come and go, as well as noted occasional palpitations that are short in nature as well, probably about 4 times a day. No chest pain, some times catch his breath, no dizziness, his blood pressure and vital signs have been stable. He no longer has lower extremity edema, but is still continuing to get monitored regarding his second-degree heart block with QT prolongation, Past Medical History: Lumbar radiculopathy, osteoarthritis, history of pneumonia, secondary heart block, restless leg syndrome, hyperlipidemia, rhinosinusitis, hypertension, colon polyps, complications with induction therapy with DIC/GI bleed in February/2020. Social History - Living Situation Living arrangement: At home Living Situation: With spouse/s.o. Support System: He is here with Niki today, they are looking at possibly going to [place] again after the holidays, depending on his treatment plan. He feels well supported, he has new Great granddaughters, and has been able to see them. He has very supportive family, continues to make contact with his buddies. 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 Medications/Allergies - Medications Home Medications: Ambulatory Orders Medication Instructions Recorded Confirmed Magnesium Oxide [Mag Ox] 400 mg PO QPM 04/09/20 08/10/20 Lidocaine/Prilocain 2.5% Cream 30 applic TOP DAILY PRN #1 tube 04/16/20 08/10/20 [Emla 2.5% Cream] Zolpidem Tartrate 10 mg PO DAILY 04/16/20 08/10/20 Acyclovir 400 mg PO BID 04/17/20 08/10/20 Aspirin [Aspirin EC] 81 mg PO DAILY 04/17/20 08/10/20 Cholecalciferol (Vitamin D3) 1,250 mcg PO DAILY 04/17/20 08/10/20 [Vitamin D3] Famotidine 20 mg PO DAILY 04/17/20 08/10/20 Lisinopril [Zestril] 20 mg PO BID 04/17/20 08/10/20 Naproxen Sodium 220 mg PO DAILY PRN 04/17/20 08/10/20 [place]-3 Fatty Acids/Fish Oil 1 cap PO DAILY 04/17/20 08/10/20 [[place]-3 Fish Oil 1,000 mg Sfgl] Tretinoin 50 mg PO .DAY 1-5 ON 28 CYCLE 04/17/20 08/10/20 Ropinirole HCl 1 - 3 mg PO DAILY PM MDD using 2 04/25/20 08/10/20 mg currently traMADol [Ultram] 50 - 100 mg PO Q6HR PRN 04/25/20 08/10/20 Diclofenac Sodium [Voltaren] 100 gm TP DAILY PRN 05/07/20 08/10/20 Potassium Chloride 10 meq PO DAILY #90 tablet.er 05/22/20 08/10/20 Ondansetron HCl [Zofran] 4 mg PO Q8HR PRN #30 tab 06/05/20 08/10/20 Furosemide [Lasix] 10 mg PO DAILY 06/29/20 08/10/20 polyethylene glycoL 3350 [Miralax] 17 gm PO DAILY MDD using 3/4 capful 07/06/20 08/10/20 - Allergies Allergies/Adverse Reactions: Allergies Allergy/AdvReac Type Severity Reaction Status Date / Time chlorhexidine AdvReac Rash Verified 08/06/20 08:50 Review of Systems - Constitutional Constitutional: reports: Weight stable (199). denies: Fever, Chills - Eyes Eyes: reports: Vision loss, Corrective lenses - Ears, Nose & Throat Ears, Nose & Throat: reports: Hearing loss, Hearing aids - Cardiovascular Cardiovascular: reports: Palpitations, Edema (resolved with stockings/exercise), Decr. exercise tolerance (iproved) - Respiratory Respiratory: denies: SOB at rest - Gastrointestinal Gastrointestinal: reports: Early satiety. denies: Constipation, Nausea - Genitourinary Genitourinary: reports: Frequency - Musculoskeletal Musculoskeletal: reports: Back pain (improved), Stiffness, Muscle weakness - Integumentary Integumentary: reports: Dryness - Neurological Neurological: reports: General weakness, Headache (fleeting and fluctuating) - Psychiatric Psychiatric: reports: Anxiety (improved after bone marrow biopsy). denies: Depression - All Other Systems All Other Systems: reports: Reviewed and negative Physical Exam - Vital Signs Temperature: 97.8 C Pulse Rate: 63 Respiratory Rate: 16 Blood Pressure: 116/57 - Physical Exam General Appearance: positive: No acute distress, Alert Eyes Bilateral: positive: Normal inspection ENT: positive: No signs of dehydration Neck: positive: Trachea midline Cardiovascular: positive: Irregularly irregular Respiratory: positive: No respiratory distress, Breath sounds nml. negative: Wheezes, Rales, Rhonchi Abdomen: positive: Non-tender, Soft Skin: positive: Dryness Extremities: positive: No pedal edema Neurologic/Psychiatric: positive: Oriented x3, Mood/affect nml Palliative Care - POLST Patient has POLST: No POLST Status: Full Code Pain: Pain improved, Location (back and legs) Tiredness/Fatigue: None Drowsiness/Sedation: None Nausea: None Anorexia: Moderate (4-6) Dyspnea: None Depression: None Anxiety: None (was severe with bone marrow biopsy) Feelings of wellbeing/Perceived Quality of Life: Good, Acceptable, Improved Sleep: Variable sleep pattern (Continues to struggle with sleep, finds that 7.5 mg often does not always work of the zolpidem, but 10 mg sometimes gives him a hangover. Because he gets so anxious about his sleep, he prefers the 10 mg, we will go ahead and order 10 mg tabs, we did discuss in the context and used him with treatmen) Constipation: Yes, Managed (Has found the sweet spot and is taking MiraLAX daily with good results) Performance Status: Patient's strength and performance status is continue to improve, he is able to tolerate walking up to a mile and a half, has been engaged in physical therapy weekly, reports he is almost finished with this is he is almost back to his baseline. He is very much encouraged, does still have some residual pain with golf, but still continues to participate, this is not new since illness. - Palliative Care Discussion: Discussion centered on his relief with good news regarding his bone marrow biopsy, he continues to be engaged in treatment. Has good family support, is feeling more positive overall, continue to discuss his concerns and symptoms, psychosocial support provided. Results - Lab Results Lab results reviewed: Yes Impression and Recommendations - Palliative Care Impression: This is a memo gentleman with APL, now downgraded to low risk group, currently on consolidation therapy with treatment of curative intent. He continues to improve both with strength, decreasing symptom burden, but continues with persistent insomnia. Palliative care continue provide support regarding symptom management and psychosocial support Recommendations/Counseling Done: 1. Insomnia. After much discussion will increase [place] up to 10 mg, patient is quite anxious about not getting good sleep, as this does impact his overall sense of wellbeing. We did discuss this would be a time trial through his treatment schedule, and can look at titrating off after finished with treatment. 2. Restless leg syndrome. Patient continued to have some difficulty, does report he is at 2 mg, this seems to be helping some. We did discuss it can titrate up to 3, will keep that currently and keep an eye on it. Not only does he have some restless nose, but also intense flush burning in the bottom of his feet, similar to neuropathy. 3. Deconditioning. Patient's been participating in physical therapy and home exercise program he is doing much better, he is almost back to his preepisodic level of functioning. 4. Chronic back pain. Patient has long-term had chronic back pain, acute pain is resolved. Patient feels currently controlled with exercise, and regimen, they are using topical treatments at bedtime with good relief. 5. Anxiety. Patient continues to adjust, is feeling much better with good news of his bone marrow biopsy. Does seem bright and engaged, no concerns for depressive or anxiety symptoms. 6. Intermittent headaches. Patient does not present with any further lower extremity edema, does have challenges getting adequate fluid intake, discussed will trial decreasing furosemide to half dose of 10 mg as oncology note is supportive of decreasing dosing. Will leave potassium though at current level, given patient is at 4.0 today. Time Spent: 60 minutes with getting 50% of this done in counseling regarding symptom management, patient is to establish with new provider Sandy MEHTA, discussion regarding role of PCP, and anticipatory guidance.
== END 2020-08-10 09:45 | disposition home or self-care (01) ==
LOC: PC 09:44
PROVIDERS: ATTEND Nurse Practitioner Adult Health
DX: Z51.5 Encounter for palliative care (principal); G47.00 Insomnia, unspecified; G25.81 Restless legs syndrome; R53.81 Other malaise; M54.9 Dorsalgia, unspecified; G89.29 Other chronic pain; F41.9 Anxiety disorder, unspecified; R51.9 Headache, unspecified; G62.9 Polyneuropathy, unspecified; I10 Essential (primary) hypertension; K59.00 Constipation, unspecified; C92.40 Acute promyelocytic leukemia, not having achieved remission; I44.1 Atrioventricular block, second degree; Z79.899 Other long term (current) drug therapy
CPT/HCPCS: 99215

== ENCOUNTER 2020-08-30 10:38 | Outpatient (CLI) | payer MEDICARE, OTHER ==
--- NOTE | 2020-08-30 22:21 | CONSULTATION NOTE ---
Palliative Care Follow Up - Referral Referring Provider: Dr. Chu Jones Time of Visit: 5087-0229 Referral setting: [facility] – [place] Referral Reason: Anxiety/AML/RLS - Information Sources Records reviewed: Previous records reviewed History/Review of Systems obtained from: Patient, Family (s/o Niki present) Exam limitations: Clinical condition (diff with [place];) - History of Present Illness Update Brief HPI Update: This is a 80-year-old gentleman who is being treated for acute promyelocytic leukemia since 02/2020. He is receiving LENA/ATRA. He is on his fourth week of his third treatment, is exhibiting fatigue. He is currently on molecular remission, in addition to hematological remission. He is expressing fatigue in the context of his ongoing treatment. He is doing fairly well overall, has continued though to describe worsening paresthesias in his feet, along with baseline RLS, improved back pain, insomnia, but also has escalating anxiety. Past Medical History: Lumbar radiculopathy, osteoarthritis, history of pneumonia, history of heart block, restless leg syndrome, hyperlipidemia, rhinosinusitis, hypertension, colonic polyps, complications with induction therapy in March 07 with DIC and GI bleed. Severe hearing loss with hearing aids, chronic vision loss, cataracts with pending surgery next week Social History - Living Situation Living arrangement: At home Living Situation: With spouse/s.o. Support System: Lives with his significant other Niki, they have been together over 12 years. Unfortunately she has had fall, including cervical fracture, with current hard collar. She is having significant discomfort, and needing increased assistance from him. This is added to his increased anxiety, they are both hard of hearing, and it has been difficult for communication. He also has a large extended family, and some anxiety about pending Thanksgiving gathering. 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 Medications/Allergies - Medications Home Medications: Ambulatory Orders Medication Instructions Recorded Confirmed Magnesium Oxide [Mag Ox] 400 mg PO QPM 04/09/20 08/20/20 Lidocaine/Prilocain 2.5% Cream 30 applic TOP DAILY PRN #1 tube 04/16/20 08/20/20 [Emla 2.5% Cream] Zolpidem Tartrate 10 mg PO DAILY 04/16/20 08/20/20 Acyclovir 400 mg PO BID 04/17/20 08/20/20 Aspirin [Aspirin EC] 81 mg PO DAILY 04/17/20 08/20/20 Cholecalciferol (Vitamin D3) 1,250 mcg PO DAILY 04/17/20 08/20/20 [Vitamin D3] Famotidine 20 mg PO DAILY 04/17/20 08/20/20 Lisinopril [Zestril] 20 mg PO BID 04/17/20 08/20/20 Naproxen Sodium 220 mg PO DAILY PRN 04/17/20 08/20/20 [place]-3 Fatty Acids/Fish Oil 1 cap PO DAILY 04/17/20 08/20/20 [[place]-3 Fish Oil 1,000 mg Sfgl] Tretinoin 50 mg PO .DAY 1-5 ON 28 CYCLE 04/17/20 08/20/20 Ropinirole HCl 1 - 3 mg PO DAILY PM MDD using 2 04/25/20 08/20/20 mg currently traMADol [Ultram] 50 - 100 mg PO Q6HR PRN 04/25/20 08/20/20 Diclofenac Sodium [Voltaren] 100 gm TP DAILY PRN 05/07/20 08/20/20 Potassium Chloride 10 meq PO DAILY #90 tablet.er 05/22/20 08/10/20 Ondansetron HCl [Zofran] 4 mg PO Q8HR PRN #30 tab 06/05/20 08/10/20 Furosemide [Lasix] 10 mg PO DAILY 06/29/20 08/20/20 polyethylene glycoL 3350 [Miralax] 17 gm PO DAILY MDD using 3/4 capful 07/06/20 08/20/20 - Allergies Allergies/Adverse Reactions: Allergies Allergy/AdvReac Type Severity Reaction Status Date / Time chlorhexidine AdvReac Rash Verified 08/20/20 08:23 Review of Systems - Constitutional Constitutional: reports: Weight stable (199). denies: Fever, Chills - Eyes Eyes: reports: Vision loss, Corrective lenses, Other (getting cataract surgery next week) - Ears, Nose & Throat Ears, Nose & Throat: reports: Hearing loss, Hearing aids, Postnasal drainage. denies: Mouth lesions - Cardiovascular Cardiovascular: reports: Edema, Lightheadedness, Decr. exercise tolerance (improved) - Respiratory Respiratory: reports: Cough (occasional/clear mostly dry), SOB with exertion. denies: SOB at rest - Gastrointestinal Gastrointestinal: reports: Early satiety. denies: Constipation, Nausea - Genitourinary Genitourinary: reports: Frequency - Musculoskeletal Musculoskeletal: reports: Back pain (improved), Stiffness, Muscle weakness, Other (pain with sitting in car) - Integumentary Integumentary: reports: Dryness - Neurological Neurological: reports: General weakness, Numbness (Patient does describe RLS, with Leg movement at night, which is quite distressing to his partner. He does feel like the ropinirole, though has settled some of this down. He is sleeping better. He though describes more of a paresthesia, in his feet, where a burning sensation just at night) - Psychiatric Psychiatric: reports: Anxiety (improved after bone marrow biopsy). denies: Depression - All Other Systems All Other Systems: reports: Reviewed and negative Physical Exam - Vital Signs Temperature: 36.4 C Pulse Rate: 67 Respiratory Rate: 18 Blood Pressure: 129/64 - Physical Exam General Appearance: positive: No acute distress, Alert Eyes Bilateral: positive: Normal inspection ENT: positive: No signs of dehydration Neck: positive: Trachea midline Respiratory: positive: No respiratory distress Abdomen: positive: Non-tender, Soft Skin: positive: Dryness Extremities: positive: No pedal edema Neurologic/Psychiatric: positive: Oriented x3, Mood/affect nml Palliative Care - POLST Patient has POLST: No POLST Status: Full Code Pain: Severity (2/10) Tiredness/Fatigue: None Drowsiness/Sedation: None Nausea: None Anorexia: Mild (1-3) Dyspnea: None Depression: Mild (1-3) Anxiety: Mild (1-3) Feelings of wellbeing/Perceived Quality of Life: Good, Acceptable, Improved, Comment (feels given Rehab; close work with symptoms; he is feeling better even than before he was sick) Sleep: Sleep improved, Variable sleep pattern Constipation: Yes, Managed Performance Status: Patient has been doing his walking, and progressive ambulation. He is paying attention and not exacerbating his back pain. He is feeling somewhat limited though by the restrictions of the pandemic. He is able to manage his own ADLs, he does get somewhat overwhelmed managing his medications at times, does feel like physically he is doing better than even prior to his illness regarding chronic pain issues. - Palliative Care Discussion: Patient is experiencing increased anxiety, this is multifactorial. Certainly with the health issues of his significant other, now completing 4 weeks of treatment, and the limitations of the pandemic on activities and access to friends and family. He is quite anxious with pending Thanksgiving gathering, they have been very selective and careful about exposure. He does admit to feeling more irritable and anxious, did explore some of these things during our visit.He does have 1 more month, starting in September. He is wondering about the "what next" and how this looks. Did spend time explaining there is a surveillance program, and recommended he make contact with oncology [place] Results - Lab Results Lab results reviewed: Yes Impression and Recommendations - Palliative Care Impression: This is a memo gentleman with APL, moved into low risk group, currently on consolidation therapy. Treatment is of curative intent, he is now having anxiety and feeling fatigued regarding treatment as he ends his 4-week ATRAarsenic trioxide treatment. He does appear to be experiencing some paresthesias as a side effect of chemotherapy, in addition to his RLS and insomnia which has improved. Palliative care providing support regarding symptom management and psychosocial support for anxiety. Recommendations/Counseling Done: 1. AML. Patient is completing his 3 of 4, 4-week rounds of chemotherapy. He is experiencing some fatigue regarding this. He is wondering about the future, we did discuss that there is a surveillance program after completion of therapy they follow with labs, bone marrow as indicated, and ongoing contact with oncology. He is going "self" for the winter, never get other does have an oncologist, recommended they get an appointment and records transferred in preparation for support down there. 2. Restless leg syndrome. Patient has increase ropinirole to 2 mg, this has helped some. He reports he is sleeping better both with ropinirole and in creasing Ambien. Patient describes still restless leg movements, that wake his partner. That this is fluctuating. We did discuss in the context of this most likely not going to be solved by medication. Patient does present with is a description more of paresthesias in his feet, and at night a burning sensation in feet only, noted with compression of support hose. His partner had been on gabapentin for her pain, was wondering about this as something for himself. We did discuss I would most likely recommend pregabalin as quicker onset of action, after much discussion particularly in the context of changing out medications which is often overwhelming for him, will leave things as is for now and he will contact me if he would like to trial something else. Given the severity of his symptoms prior to increasing ropinirole, has had improvement. 3. Lower extremity edema. Patient has had improvement, does get pooling around his feet and ankles, is able to wear shoes, and wearing support socks with improvement. He continues on his low-dose furosemide and potassium. 4. Chronic back pain. Patient has long-term had chronic back pain, acute pain from fall is resolving. Patient though does still have tenderness with long- term sitting, had tried "a donut". Instructed not to use a donut, did recommend gel cushion for long distances in the car, or sitting such as an chemotherapy chair. Located on [employer] with recommendation for purchase. 5. Anxiety. Patient does appear to have exacerbation of his anxiety, this is multifactorial, we did discuss in the context of his concerns regarding pending Thanksgiving gathering and family. Ways to approach either increasing safety, or declining amputation. Patient also of course worried about his partner, is fatigued from extended treatment schedule, and does have pending cataract surgery. Psychosocial support given and encouraged expression of fears and concerns. Niki was present for visit, but feeling poorly and drifting off. We did discuss in the context of his anxiety, if he has persistent irritability, and becomes problematic, we could explore an antidepressant which addresses anxiety. Patient is quite pill adverse, did feel better after conversation. Time Spent: 60 minutes with greater than 50% of this, included in counseling regarding anxiety, review of symptoms pain and symptom management, and anticipatory guidance
== END 2020-08-30 10:39 | disposition home or self-care (01) ==
LOC: PC 10:38
PROVIDERS: ATTEND Nurse Practitioner Adult Health
DX: Z51.5 Encounter for palliative care (principal); C92.00 Acute myeloblastic leukemia, not having achieved remission; G25.81 Restless legs syndrome; R60.0 Localized edema; M54.9 Dorsalgia, unspecified; G89.29 Other chronic pain; F41.9 Anxiety disorder, unspecified; C92.40 Acute promyelocytic leukemia, not having achieved remission; I10 Essential (primary) hypertension
CPT/HCPCS: 99215

== ENCOUNTER 2020-10-05 11:30 | Outpatient (CLI) | payer MEDICARE, OTHER ==
--- NOTE | 2020-10-05 18:00 | CONSULTATION NOTE ---
Palliative Care Follow Up - Referral Referring Provider: Dr. Chu Jones Time of Visit: [id number] Referral setting: [facility] [place] Referral Reason: Anxiety/APL - Information Sources Records reviewed: Previous records reviewed History/Review of Systems obtained from: Patient Exam limitations: No limitations - History of Present Illness Update Brief HPI Update: This is a 80-year-old gentleman is being treated for acute promyelocytic leukemia since 02/2020. He is on his first week of his fourth and final treatment, he is currently in molecular remission, in addition to hematologic remission. He has been doing fairly well overall, though is having some second- degree heart beat, with bradycardia. This has necessitated 50% arsenic dose reduction, he is getting somewhat anxious as he reports he is a glass half empty kind of aarti. He has had improvement with his pregablin at bedtime for RLS, and sleep overall fluctuates but improved. Patient does have underlying anxiety, has felt the impact of isolation and concern regarding the pandemic. His partner also has had health problems, he reports he does not make a good nurse. Past Medical History: Lumbar radiculopathy, osteoarthritis, history of pneumonia, history of heart block, restless leg syndrome hyperlipidemia, rhinosinusitis, hypertension, colonic polyps, complications with original induction therapy in with DIC and GI bleed, severe hearing loss with hearing aids, chronic vision loss, recent cataract surgery. Social History - Living Situation Living arrangement: At home Living Situation: With spouse/s.o. Support System: Patient lives with his significant other Niki, they have been together over 12 years, unfortunately she had a fall with a cervical fracture. She has had increased need for assistance from him. This has increased his anxiety. He is quite hard of hearing and makes is difficult for communication. 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, he has found this experience very stressful Medications/Allergies - Medications Home Medications: Ambulatory Orders Medication Instructions Recorded Confirmed Magnesium Oxide [Mag Ox] 400 mg PO QPM 04/09/20 10/05/20 Lidocaine/Prilocain 2.5% Cream 30 applic TOP DAILY PRN #1 tube 04/16/20 10/05/20 [Emla 2.5% Cream] Zolpidem Tartrate 10 mg PO DAILY 04/16/20 10/05/20 Acyclovir 400 mg PO BID 04/17/20 10/05/20 Aspirin [Aspirin EC] 81 mg PO DAILY 04/17/20 10/05/20 Cholecalciferol (Vitamin D3) 1,250 mcg PO DAILY 04/17/20 10/05/20 [Vitamin D3] Famotidine 20 mg PO DAILY 04/17/20 10/05/20 Lisinopril [Zestril] 20 mg PO DAILY 04/17/20 10/05/20 Naproxen Sodium 220 mg PO DAILY PRN 04/17/20 10/05/20 [place]-3 Fatty Acids/Fish Oil 1 cap PO DAILY 04/17/20 10/05/20 [[place]-3 Fish Oil 1,000 mg Sfgl] Tretinoin 50 mg PO .DAY 1-5 ON 28 CYCLE 04/17/20 10/05/20 traMADol [Ultram] 50 - 100 mg PO Q6HR PRN 04/25/20 10/05/20 Diclofenac Sodium [Voltaren] 100 gm TP DAILY PRN 05/07/20 10/05/20 Potassium Chloride 10 meq PO DAILY #90 tablet.er 05/22/20 10/05/20 Ondansetron HCl [Zofran] 4 mg PO Q8HR PRN #30 tab 06/05/20 10/05/20 Furosemide [Lasix] 10 mg PO DAILY 06/29/20 10/05/20 polyethylene glycoL 3350 [Miralax] 17 gm PO DAILY MDD using 3/4 capful 07/06/20 10/05/20 Pregabalin [Lyrica] 100 mg PO QPM 10/05/20 10/05/20 - Allergies Allergies/Adverse Reactions: Allergies Allergy/AdvReac Type Severity Reaction Status Date / Time chlorhexidine AdvReac Rash Verified 10/01/20 09:10 Review of Systems - Constitutional Constitutional: reports: Fatigue, Weight stable (199). denies: Fever, Chills - Eyes Eyes: reports: Vision loss, Corrective lenses, Other (recent cataract surgery) - Ears, Nose & Throat Ears, Nose & Throat: reports: Hearing loss, Hearing aids, Postnasal drainage. denies: Mouth lesions - Cardiovascular Cardiovascular: reports: Edema (trace only), Decr. exercise tolerance. denies: Palpitations, Chest pain - Respiratory Respiratory: reports: Cough (occasional/clear mostly dry), SOB with exertion. denies: SOB at rest - Gastrointestinal Gastrointestinal: reports: Early satiety. denies: Constipation, Nausea - Genitourinary Genitourinary: reports: Frequency - Musculoskeletal Musculoskeletal: reports: Back pain (improved), Stiffness, Muscle weakness, Other (pain with sitting in car) - Integumentary Integumentary: reports: Dryness - Neurological Neurological: reports: General weakness, Numbness - Psychiatric Psychiatric: reports: Anxiety. denies: Depression - All Other Systems All Other Systems: reports: Reviewed and negative Physical Exam - Vital Signs Temperature: 36.3 C Pulse Rate: 46 Respiratory Rate: 16 O2 Saturation: 100 Blood Pressure: 145/65 - Physical Exam General Appearance: positive: No acute distress, Alert Eyes Bilateral: positive: Normal inspection, Other (bruising and some redness with left eye; residual of cataract surgery) ENT: positive: No signs of dehydration Neck: positive: Trachea midline Cardiovascular: positive: Bradycardia Respiratory: positive: No respiratory distress Abdomen: positive: Non-tender, Soft Skin: positive: Dryness Extremities: positive: No pedal edema Neurologic/Psychiatric: positive: Oriented x3, Mood/affect nml Palliative Care - POLST Patient has POLST: No Pain: Pain improved, Location (back) Tiredness/Fatigue: Moderate (4-6) Drowsiness/Sedation: Mild (1-3) Nausea: Mild (1-3) Anorexia: Mild (1-3) Dyspnea: Mild (1-3) Depression: Moderate (4-6) Anxiety: Moderate (4-6) Feelings of wellbeing/Perceived Quality of Life: Good, Acceptable, No change Sleep: Sleep improved, Variable sleep pattern Constipation: Yes, Intermittent constipation Performance Status: Patient has completed physical therapy, given weather and restrictions of pandemic though has not been doing much with his exercise or walking. He is able to manage his own ADLs, does feel like he is doing fairly well overall though knows he needs to be more motivated. - Palliative Care Discussion: Patient does perceive himself as someone who is quite anxious, and as 1/2 glass empty sort of aarti. He is somewhat anxious about finishing treatment, of "what is next", that he is not can be totally all done on 10/26. Reassured there would be ongoing monitoring, he will be getting a bone marrow on 10/30, and will have information to further help plan his surveillance in the future. He is starting to get quite impatient with yet another month, he is still have 3 weeks ahead of him. He has felt overwhelmed with just the pandemic, we did spend quite a bit of time talking about COVID-19, implications, and the upcoming vaccine. Patient did get his flu shot, does get somewhat overwhelmed with his medications. Is wondering if there will be fewer, we did discuss most are still necessary given his new normal. Results - Lab Results Lab results reviewed: Yes Impression and Recommendations - Palliative Care Impression: This is a memo gentleman with APL, he is quite anxious, he is currently on consolidation therapy. Treatment is of curative intent, he is having anxiety and feeling fatigued regarding treatment. He has 1 more 3-week stent and he will be finished. He has had some improvement in his paresthesias side effect of chemotherapy with the pregabalin at 100 mg. Palliative care continue provide support regarding symptom management and psychosocial support for anxiety. Recommendations/Counseling Done: 1. APL. Patient is on his fourth round of 4 rounds of consolidation therapy. He continues to worry about the future, reassured there is a surveillance program after completion, he does have bone marrow biopsy scheduled 10/30. [place] will be transferring in short-term to oncology down there. 2. Restless leg syndrome. Patient has been transitioned over to pregabalin, over several weeks did increase to 100 mg, with this being the adequate dose. It has helped with his paresthesias, he still has some "hot feet" but has had this for years. He is able to sleep most nights with a combination of pregabalin and Ambien. Have discontinued the ropinirole, has found better outcome with pregabalin. 3. Lower extremity edema. Patient is wearing support socks, he continues on his low-dose furosemide and potassium, does appear oncology would like him to look at titrating off. Will explore this with next visit. 4. Anxiety. Patient does have multifactorial anxiety, we did discuss this at length, has many topics that cause him distress. Psychosocial support given, encouraged expression of fears and concerns. Patient is quite pill adverse, will continue with this psychosocial support and counseling as this does appear to give him some relief. We did discuss in the future when he is seen oncology, he could do check on if needed. 5. Bradycardia. Patient remains quite anxious regarding this. Did discuss has had dose reduction, patient is not symptomatic. We reviewed what this would look like, as he continues to perseverate on this some. Patient is not having dizziness, persistent fatigue, chest pain or shortness of breath. He has had follow-up with Dr. Rolle, and getting continuous EKGs. Patient was hypotensive earlier in the week, and has had his lisinopril cut down to 10 mg daily. Will monitor blood pressure, may be able to discontinue furosemide as well Time Spent: 45 minutes with greater 50% of this done in counseling regarding anxiety, COVID- 19 vaccine and risk factors, anticipatory guidance, and coordination with oncology team.
== END 2020-10-05 11:31 | disposition home or self-care (01) ==
LOC: PC 11:30
PROVIDERS: ATTEND Nurse Practitioner Adult Health
DX: Z51.5 Encounter for palliative care (principal); C92.41 Acute promyelocytic leukemia, in remission; G25.81 Restless legs syndrome; R60.0 Localized edema; F41.9 Anxiety disorder, unspecified; I10 Essential (primary) hypertension; R00.1 Bradycardia, unspecified; T50.995A Adverse effect of other drugs, medicaments and biological substances, initial encounter; Z79.899 Other long term (current) drug therapy
CPT/HCPCS: 99215

== ENCOUNTER 2020-10-26 09:30 | Outpatient (CLI) | payer MEDICARE, OTHER ==
--- OUTSIDE RECORDS SUMMARY | 2020-10-31 01:37 | EXTERNAL MEDICAL SUMMARY RPT | Continuity of Care Document ---
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 MD Unavailable Unavailable Demmler Unavailable Unavailable Problems date description facility 2020-07-16 08:45 LOCALIZED EDEMA [facility] 2020-07-16 08:45 HISTORY OF FALLING [facility] 2020-08-03 10:15 LOCALIZED EDEMA [facility] 2020-08-03 10:15 HISTORY OF FALLING [facility] 2020-08-06 08:00 ACUTE PROMYELOCYTIC LEUKEMIA, NOT [facility] HAVING ACHIEVED REMISSION 2020-08-06 08:00 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 UNSPECIFIED EAR 2020-08-06 08:00 ATRIOVENTRICULAR BLOCK, SECOND [facility] DEGREE 2020-08-06 08:00 OTHER SPECIFIED DISORDERS OF TEETH [facility] AND SUPPORTING STRUCTURES 2020-08-06 08:00 GASTRO-ESOPHAGEAL REFLUX DISEASE [facility] WITHOUT ESOPHAGITIS 2020-08-06 08:00 NAUSEA [facility] 2020-08-06 08:00 LOCALIZED EDEMA [facility] 2020-08-06 08:00 ANOREXIA [facility] 2020-08-06 08:00 ADVERSE EFFECT OF ANTINEOPLASTIC [facility] AND IMMUNOSUP DRUGS, INIT 2020-08-06 08:00 ENCOUNTER FOR ANTINEOPLASTIC [facility] CHEMOTHERAPY 2020-08-06 08:00 ENCOUNTER FOR PALLIATIVE CARE [facility] 2020-08-06 08:00 OTHER HALFWAY (CURRENT) DRUG [facility] THERAPY 2020-08-06 08:00 PRSNL HISTORY OF DIS OF THE [facility] BLD/BLD-FORM ORG/IMMUN [facility] 2020-08-06 08:00 PERSONAL HISTORY OF OTHER DISEASES [facility] THE [facility]IVE SYSTEM 2020-08-06 08:00 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 UNSPECIFIED EAR 2020-08-07 08:45 ATRIOVENTRICULAR BLOCK, SECOND [facility] DEGREE 2020-08-07 08:45 OTHER SPECIFIED DISORDERS OF TEETH [facility] AND SUPPORTING STRUCTURES 2020-08-07 08:45 GASTRO-ESOPHAGEAL REFLUX DISEASE [facility] WITHOUT ESOPHAGITIS 2020-08-07 08:45 NAUSEA [facility] [place] 2020-08-07 08:45 LOCALIZED EDEMA [facility] [place] 2020-08-07 08:45 ANOREXIA [facility] [place] 2020-08-07 08:45 ADVERSE EFFECT OF ANTINEOPLASTIC [facility] AND IMMUNOSUP DRUGS, INIT 2020-08-07 08:45 ENCOUNTER FOR ANTINEOPLASTIC [facility] CHEMOTHERAPY 2020-08-07 08:45 ENCOUNTER FOR PALLIATIVE CARE [facility] 2020-08-07 08:45 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 2020-08-07 08:45 PRSNL HISTORY OF DIS OF THE [facility] BLD/BLD-FORM ORG/IMMUN [facility] 2020-08-07 08:45 PERSONAL HISTORY OF OTHER DISEASES [facility] 2020-08-07 08:45 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 2020-08-08 08:45 ACUTE PROMYELOCYTIC LEUKEMIA, NOT [facility] HAVING ACHIEVED REMISSION 2020-08-08 08:45 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 UNSPECIFIED EAR 2020-08-08 08:45 ATRIOVENTRICULAR BLOCK, SECOND [facility] DEGREE 2020-08-08 08:45 OTHER SPECIFIED DISORDERS OF TEETH [facility] AND SUPPORTING STRUCTURES 2020-08-08 08:45 GASTRO-ESOPHAGEAL REFLUX DISEASE [facility] WITHOUT ESOPHAGITIS 2020-08-08 08:45 NAUSEA [facility] al [place] 2020-08-08 08:45 LOCALIZED EDEMA [facility] 2020-08-08 08:45 ANOREXIA [facility] 2020-08-08 08:45 ADVERSE EFFECT OF ANTINEOPLASTIC [facility] AND IMMUNOSUP DRUGS, INIT 2020-08-08 08:45 ENCOUNTER FOR ANTINEOPLASTIC [facility] CHEMOTHERAPY 2020-08-08 08:45 ENCOUNTER FOR PALLIATIVE CARE [facility] 2020-08-08 08:45 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 2020-08-08 08:45 PRSNL HISTORY OF DIS OF THE [facility] BLD/BLD-FORM ORG/IMMUN [facility] 2020-08-08 08:45 PERSONAL HISTORY OF OTHER DISEASES [facility] 2020-08-08 08:45 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 2020-08-09 08:45 ACUTE PROMYELOCYTIC LEUKEMIA, NOT [facility] HAVING ACHIEVED REMISSION 2020-08-09 08:45 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 UNSPECIFIED EAR 2020-08-09 08:45 ATRIOVENTRICULAR BLOCK, SECOND [facility] DEGREE 2020-08-09 08:45 OTHER SPECIFIED DISORDERS OF TEETH [facility] AND SUPPORTING STRUCTURES 2020-08-09 08:45 GASTRO-ESOPHAGEAL REFLUX DISEASE [facility] WITHOUT ESOPHAGITIS 2020-08-09 08:45 NAUSEA [facility] [place] 2020-08-09 08:45 LOCALIZED EDEMA [facility] [place] 2020-08-09 08:45 ANOREXIA [facility] [place] 2020-08-09 08:45 ADVERSE EFFECT OF ANTINEOPLASTIC [facility] AND IMMUNOSUP DRUGS, INIT 2020-08-09 08:45 ENCOUNTER FOR ANTINEOPLASTIC [facility] CHEMOTHERAPY 2020-08-09 08:45 ENCOUNTER FOR PALLIATIVE CARE [facility] 2020-08-09 08:45 OTHER HALFWAY (CURRENT) DRUG [facility] THERAPY 2020-08-09 08:45 PRSNL HISTORY OF DIS OF THE [facility] BLD/BLD-FORM ORG/IMMUN MECH[facility]M 2020-08-09 08:45 PERSONAL HISTORY OF OTHER DISEASES [facility] 2020-08-09 08:45 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 2020-08-10 08:45 ACUTE PROMYELOCYTIC LEUKEMIA, NOT [facility] HAVING ACHIEVED REMISSION 2020-08-10 08:45 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 UNSPECIFIED EAR 2020-08-10 08:45 ATRIOVENTRICULAR BLOCK, SECOND [facility] DEGREE 2020-08-10 08:45 OTHER SPECIFIED DISORDERS OF TEETH [facility] AND SUPPORTING STRUCTURES 2020-08-10 08:45 GASTRO-ESOPHAGEAL REFLUX DISEASE [facility] WITHOUT ESOPHAGITIS 2020-08-10 08:45 NAUSEA [facility] 2020-08-10 08:45 LOCALIZED EDEMA [facility] 2020-08-10 08:45 ANOREXIA [facility] 2020-08-10 08:45 ADVERSE EFFECT OF ANTINEOPLASTIC [facility] AND IMMUNOSUP DRUGS, INIT 2020-08-10 08:45 ENCOUNTER FOR ANTINEOPLASTIC [facility] CHEMOTHERAPY 2020-08-10 08:45 ENCOUNTER FOR PALLIATIVE CARE [facility] 2020-08-10 08:45 OTHER HALFWAY (CURRENT) DRUG [facility] THERAPY 2020-08-10 08:45 PRSNL HISTORY OF DIS OF THE [facility] BLD/BLD-FORM ORG/IMMUN MECHNSM 2020-08-10 08:45 PERSONAL HISTORY OF OTHER DISEASES [facility] 2020-08-10 08:45 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 2020-08-13 08:45 ACUTE PROMYELOCYTIC LEUKEMIA, NOT [facility] HAVING ACHIEVED REMISSION 2020-08-13 08:45 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 UNSPECIFIED EAR 2020-08-13 08:45 ATRIOVENTRICULAR BLOCK, SECOND [facility] DEGREE 2020-08-13 08:45 OTHER SPECIFIED DISORDERS OF TEETH [facility] AND SUPPORTING STRUCTURES 2020-08-13 08:45 GASTRO-ESOPHAGEAL REFLUX DISEASE [facility] WITHOUT ESOPHAGITIS 2020-08-13 08:45 NAUSEA [facility] 2020-08-13 08:45 LOCALIZED EDEMA [facility] 2020-08-13 08:45 ANOREXIA [facility] 2020-08-13 08:45 ADVERSE EFFECT OF ANTINEOPLASTIC [facility] AND IMMUNOSUP DRUGS, INIT 2020-08-13 08:45 ENCOUNTER FOR ANTINEOPLASTIC [facility] CHEMOTHERAPY 2020-08-13 08:45 ENCOUNTER FOR PALLIATIVE CARE [facility] 2020-08-13 08:45 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 2020-08-13 08:45 PRSNL HISTORY OF DIS OF THE [facility] BLD/BLD-FORM ORG/IMMUN MECH[facility]M 2020-08-13 08:45 PERSONAL HISTORY OF OTHER DISEASES [facility] 2020-08-13 08:45 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 2020-08-14 08:45 ACUTE PROMYELOCYTIC LEUKEMIA, NOT [facility] HAVING ACHIEVED REMISSION 2020-08-14 08:45 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 UNSPECIFIED EAR 2020-08-14 08:45 ATRIOVENTRICULAR BLOCK, SECOND [facility] DEGREE 2020-08-14 08:45 OTHER SPECIFIED DISORDERS OF TEETH [facility] AND SUPPORTING STRUCTURES 2020-08-14 08:45 GASTRO-ESOPHAGEAL REFLUX DISEASE [facility] WITHOUT ESOPHAGITIS 2020-08-14 08:45 NAUSEA [facility] 2020-08-14 08:45 LOCALIZED EDEMA [facility] 2020-08-14 08:45 ANOREXIA [facility] 2020-08-14 08:45 ADVERSE EFFECT OF ANTINEOPLASTIC [facility] AND IMMUNOSUP DRUGS, INIT 2020-08-14 08:45 ENCOUNTER FOR ANTINEOPLASTIC [facility] CHEMOTHERAPY 2020-08-14 08:45 ENCOUNTER FOR PALLIATIVE CARE [facility] 2020-08-14 08:45 OTHER HALFWAY (CURRENT) DRUG [facility] THERAPY 2020-08-14 08:45 PRSNL HISTORY OF DIS OF THE [facility] BLD/BLD-FORM ORG/IMMUN MECHNSM 2020-08-14 08:45 PERSONAL HISTORY OF OTHER DISEASES [facility] 2020-08-14 08:45 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 2020-08-15 08:45 ACUTE PROMYELOCYTIC LEUKEMIA, NOT [facility] HAVING ACHIEVED REMISSION 2020-08-15 08:45 ACUTE PROMYELOCYTIC LEUKEMIA, IN [facility] REMISSION 2020-08-15 08:45 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 UNSPECIFIED EAR 2020-08-15 08:45 ATRIOVENTRICULAR BLOCK, [facility] DEGREE 2020-08-15 08:45 OTHER SPECIFIED DISORDERS OF TEETH [facility] AND SUPPORTING STRUCTURES 2020-08-15 08:45 GASTRO-ESOPHAGEAL REFLUX DISEASE [facility] WITHOUT ESOPHAGITIS 2020-08-15 08:45 NAUSEA [facility] 2020-08-15 08:45 LOCALIZED EDEMA [facility] 2020-08-15 08:45 ANOREXIA [facility] 2020-08-15 08:45 ADVERSE EFFECT OF ANTINEOPLASTIC [facility] AND IMMUNOSUP DRUGS, INIT 2020-08-15 08:45 ENCOUNTER FOR ANTINEOPLASTIC [facility] CHEMOTHERAPY 2020-08-15 08:45 ENCOUNTER FOR PALLIATIVE CARE [facility] 2020-08-15 08:45 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 2020-08-15 08:45 PRSNL HISTORY OF DIS OF THE [facility] BLD/BLD-FORM ORG/IMMUN MECHNSM 2020-08-15 08:45 PERSONAL HISTORY OF OTHER DISEASES [facility] 2020-08-15 08:45 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 2020-08-16 08:45 ACUTE PROMYELOCYTIC LEUKEMIA, NOT [facility] HAVING ACHIEVED REMISSION 2020-08-16 08:45 ACUTE PROMYELOCYTIC LEUKEMIA, IN [facility] REMISSION 2020-08-16 08:45 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 UNSPECIFIED EAR 2020-08-16 08:45 ATRIOVENTRICULAR BLOCK, SECOND [facility] DEGREE 2020-08-16 08:45 OTHER SPECIFIED DISORDERS OF TEETH [facility] AND SUPPORTING STRUCTURES 2020-08-16 08:45 GASTRO-ESOPHAGEAL REFLUX DISEASE [facility] WITHOUT ESOPHAGITIS 2020-08-16 08:45 NAUSEA [facility] 2020-08-16 08:45 LOCALIZED EDEMA [facility] 2020-08-16 08:45 ANOREXIA [facility] 2020-08-16 08:45 ADVERSE EFFECT OF ANTINEOPLASTIC [facility] AND IMMUNOSUP DRUGS, INIT 2020-08-16 08:45 ENCOUNTER FOR ANTINEOPLASTIC [facility] CHEMOTHERAPY 2020-08-16 08:45 ENCOUNTER FOR PALLIATIVE CARE [facility] 2020-08-16 08:45 OTHER HALFWAY (CURRENT) DRUG [facility] THERAPY 2020-08-16 08:45 PRSNL HISTORY OF DIS OF THE [facility] BLD/BLD-FORM ORG/IMMUN MECHNSM 2020-08-16 08:45 PERSONAL HISTORY OF OTHER DISEASES [facility] 2020-08-16 08:45 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 2020-08-17 09:00 ACUTE PROMYELOCYTIC LEUKEMIA, NOT [facility] HAVING ACHIEVED REMISSION 2020-08-17 09:00 ACUTE PROMYELOCYTIC LEUKEMIA, IN [facility] REMISSION 2020-08-17 09:00 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 UNSPECIFIED EAR 2020-08-17 09:00 ATRIOVENTRICULAR BLOCK, SECOND [facility] DEGREE 2020-08-17 09:00 OTHER SPECIFIED DISORDERS OF TEETH [facility] AND SUPPORTING STRUCTURES 2020-08-17 09:00 GASTRO-ESOPHAGEAL REFLUX DISEASE [facility] WITHOUT ESOPHAGITIS 2020-08-17 09:00 NAUSEA [facility] 2020-08-17 09:00 [facility] 09:00 ANOREXIA [facility] 2020-08-17 09:00 ADVERSE EFFECT OF ANTINEOPLASTIC [facility] AND IMMUNOSUP DRUGS, INIT 2020-08-17 09:00 ENCOUNTER FOR ANTINEOPLASTIC [facility] CHEMOTHERAPY 2020-08-17 09:00 ENCOUNTER FOR PALLIATIVE CARE [facility] 2020-08-17 09:00 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 2020-08-17 09:00 PRSNL HISTORY OF DIS OF THE [facility] BLD/BLD-FORM ORG/IMMUN MECHNSM 2020-08-17 09:00 PERSONAL HISTORY OF OTHER DISEASES [facility] 2020-08-17 09:00 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 2020-08-17 10:00 ACUTE PROMYELOCYTIC LEUKEMIA, NOT [facility] HAVING ACHIEVED REMISSION 2020-08-17 10:00 ACUTE PROMYELOCYTIC LEUKEMIA, IN [facility] REMISSION 2020-08-17 10:00 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 UNSPECIFIED EAR 2020-08-17 10:00 ATRIOVENTRICULAR BLOCK, SECOND [facility] DEGREE 2020-08-17 10:00 OTHER SPECIFIED DISORDERS OF TEETH [facility] AND SUPPORTING STRUCTURES 2020-08-17 10:00 GASTRO-ESOPHAGEAL REFLUX DISEASE [facility] WITHOUT ESOPHAGITIS 2020-08-17 10:00 NAUSEA [facility] Center 2020-08-17 10:00 LOCALIZED EDEMA [facility] 2020-08-17 10:00 ANOREXIA [facility] 2020-08-17 10:00 ADVERSE EFFECT OF ANTINEOPLASTIC [facility] AND IMMUNOSUP DRUGS, INIT 2020-08-17 10:00 ENCOUNTER FOR ANTINEOPLASTIC [facility] CHEMOTHERAPY 2020-08-17 10:00 ENCOUNTER FOR PALLIATIVE CARE [facility] 2020-08-17 10:00 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 2020-08-17 10:00 PRSNL HISTORY OF DIS OF THE [facility] BLD/BLD-FORM ORG/IMMUN MECHNSM 2020-08-17 10:00 PERSONAL HISTORY OF OTHER DISEASES [facility] 2020-08-17 10:00 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 2020-08-20 07:30 ACUTE PROMYELOCYTIC LEUKEMIA, NOT [facility] HAVING ACHIEVED REMISSION 2020-08-20 07:30 ACUTE PROMYELOCYTIC LEUKEMIA, IN [facility] REMISSION 2020-08-20 07:30 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 2020-08-20 07:30 OTHER SPECIFIED DISORDERS OF TEETH [facility] AND SUPPORTING STRUCTURES 2020-08-20 07:30 GASTRO-ESOPHAGEAL REFLUX DISEASE [facility] WITHOUT ESOPHAGITIS 2020-08-20 07:30 NAUSEA [facility] 2020-08-20 07:30 LOCALIZED EDEMA [facility] 2020-08-20 07:30 ANOREXIA [facility] 2020-08-20 07:30 ADVERSE EFFECT OF ANTINEOPLASTIC [facility] AND IMMUNOSUP DRUGS, INIT 2020-08-20 07:30 ENCOUNTER FOR ANTINEOPLASTIC [facility] CHEMOTHERAPY 2020-08-20 07:30 ENCOUNTER FOR PALLIATIVE CARE [facility] 2020-08-20 07:30 OTHER HALFWAY (CURRENT) DRUG [facility] THERAPY 2020-08-20 07:30 PRSNL HISTORY OF DIS OF THE [facility] BLD/BLD-FORM ORG/IMMUN MECHNSM 2020-08-20 07:30 PERSONAL HISTORY OF OTHER DISEASES [facility] OF THE [facility]IGESTIVE SYSTEM 2020-08-20 07:30 HISTORY OF FALLING [facility] 2020-08-20 07:30 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 2020-08-21 08:47 ACUTE PROMYELOCYTIC LEUKEMIA, NOT [facility] HAVING ACHIEVED REMISSION 2020-08-21 08:47 ACUTE PROMYELOCYTIC LEUKEMIA, IN [facility] REMISSION 2020-08-21 08:47 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 UNSPECIFIED EAR 2020-08-21 08:47 ATRIOVENTRICULAR BLOCK, SECOND [facility] DEGREE 2020-08-21 08:47 OTHER SPECIFIED DISORDERS OF TEETH [facility] AND SUPPORTING STRUCTURES 2020-08-21 08:47 GASTRO-ESOPHAGEAL REFLUX DISEASE [facility] WITHOUT ESOPHAGITIS 2020-08-21 08:47 NAUSEA [facility] 2020-08-21 08:47 LOCALIZED EDEMA [facility] 2020-08-21 08:47 ANOREXIA [facility] 2020-08-21 08:47 ADVERSE EFFECT OF ANTINEOPLASTIC [facility] AND IMMUNOSUP DRUGS, INIT 2020-08-21 08:47 ENCOUNTER FOR ANTINEOPLASTIC [facility] CHEMOTHERAPY 2020-08-21 08:47 ENCOUNTER FOR PALLIATIVE CARE [facility] 2020-08-21 08:47 OTHER HALFWAY (CURRENT) DRUG [facility] THERAPY 2020-08-21 08:47 PRSNL HISTORY OF DIS OF THE [facility] BLD/BLD-FORM ORG/IMMUN MECHNSM 2020-08-21 08:47 PERSONAL HISTORY OF OTHER DISEASES [facility] OF THE DIGESTIVE SYSTEM 2020-08-21 08:47 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 2020-08-21 13:40 ACUTE PROMYELOCYTIC LEUKEMIA, NOT [facility] HAVING ACHIEVED REMISSION 2020-08-21 13:40 ACUTE PROMYELOCYTIC [place], [place] [facility] REMISSION 2020-08-21 13:40 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 2020-08-21 13:40 NAUSEA [facility] [place] 2020-08-21 13:40 LOCALIZED EDEMA [facility] [place] 2020-08-21 13:40 ANOREXIA [facility] [place] 2020-08-21 13:40 ADVERSE EFFECT OF ANTINEOPLASTIC [facility] AND IMMUNOSUP DRUGS, INIT 2020-08-21 13:40 ENCOUNTER FOR ANTINEOPLASTIC [facility] CHEMOTHERAPY 2020-08-21 13:40 ENCOUNTER FOR PALLIATIVE CARE [facility] 2020-08-21 13:40 OTHER HALFWAY (CURRENT) DRUG [facility] THERAPY 2020-08-21 13:40 PRSNL HISTORY OF DIS OF THE [facility] BLD/BLD-FORM ORG/IMMUN MECHNSM 2020-08-21 13:40 PERSONAL HISTORY OF OTHER DISEASES [facility] OF THE DIGESTIVE SYSTEM 2020-08-21 13:40 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 2020-08-22 08:45 ACUTE PROMYELOCYTIC [place]EMIA, NOT [facility] HAVING ACHIEVED REMISSION 2020-08-22 08:45 ACUTE PROMYELOCYTIC [place], IN [facility] REMISSION 2020-08-22 08:45 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 2020-08-22 08:45 OTHER SPECIFIED DISORDERS OF TEETH [facility] AND SUPPORTING STRUCTURES 2020-08-22 08:45 GASTRO-ESOPHAGEAL REFLUX DISEASE [facility] WITHOUT ESOPHAGITIS 2020-08-22 08:45 NAUSEA [facility] [place] 2020-08-22 08:45 LOCALIZED EDEMA [facility] [place] 2020-08-22 08:45 ANOREXIA [facility] [place] 2020-08-22 08:45 ADVERSE EFFECT OF ANTINEOPLASTIC [facility] AND IMMUNOSUP DRUGS, INIT 2020-08-22 08:45 ENCOUNTER FOR ANTINEOPLASTIC [facility] CHEMOTHERAPY 2020-08-22 08:45 ENCOUNTER FOR PALLIATIVE CARE [facility] 2020-08-22 08:45 OTHER HALFWAY (CURRENT) DRUG [facility] THERAPY 2020-08-22 08:45 PRSNL HISTORY OF DIS OF THE [facility] BLD/BLD-FORM ORG/IMMUN [facility] 2020-08-22 08:45 PERSONAL HISTORY OF OTHER DISEASES [facility] OF THE [facility]ESTIVE SYSTEM 2020-08-22 08:45 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 2020-08-23 08:45 ACUTE PROMYELOCYTIC [place]EMIA, NOT [facility] HAVING ACHIEVED REMISSION 2020-08-23 08:45 ACUTE PROMYELOCYTIC [place], IN [facility] REMISSION 2020-08-23 08:45 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 UNSPECIFIED EAR 2020-08-23 08:45 ATRIOVENTRICULAR BLOCK, SECOND [facility] DEGREE 2020-08-23 08:45 OTHER SPECIFIED DISORDERS OF TEETH [facility] AND SUPPORTING STRUCTURES 2020-08-23 08:45 GASTRO-ESOPHAGEAL REFLUX DISEASE [facility] WITHOUT ESOPHAGITIS 2020-08-23 08:45 NAUSEA [facility] al [place] 2020-08-23 08:45 LOCALIZED EDEMA [facility] al [place] 2020-08-23 08:45 ANOREXIA [facility] 2020-08-23 08:45 ADVERSE EFFECT OF ANTINEOPLASTIC [facility] AND IMMUNOSUP DRUGS, INIT 2020-08-23 08:45 ENCOUNTER FOR ANTINEOPLASTIC [facility] CHEMOTHERAPY 2020-08-23 08:45 ENCOUNTER FOR PALLIATIVE CARE [facility] 2020-08-23 08:45 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 2020-08-23 08:45 PRSNL HISTORY OF DIS OF THE [facility] BLD/BLD-FORM ORG/IMMUN [facility] 2020-08-23 08:45 PERSONAL HISTORY OF OTHER DISEASES [facility] THE [facility] 2020-08-23 08:45 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 2020-08-24 08:45 ACUTE PROMYELOCYTIC [place], NOT [facility] HAVING ACHIEVED REMISSION 2020-08-24 08:45 ACUTE PROMYELOCYTIC [place], IN [facility] REMISSION 2020-08-24 08:45 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 2020-08-24 08:45 OTHER SPECIFIED DISORDERS OF TEETH [facility] AND SUPPORTING STRUCTURES 2020-08-24 08:45 GASTRO-ESOPHAGEAL REFLUX DISEASE [facility] WITHOUT ESOPHAGITIS 2020-08-24 08:45 NAUSEA [facility] 2020-08-24 08:45 LOCALIZED EDEMA [facility] 2020-08-24 08:45 ANOREXIA [facility] 2020-08-24 08:45 ADVERSE EFFECT OF ANTINEOPLASTIC [facility] AND IMMUNOSUP DRUGS, INIT 2020-08-24 08:45 ENCOUNTER FOR ANTINEOPLASTIC [facility] CHEMOTHERAPY 2020-08-24 08:45 ENCOUNTER FOR PALLIATIVE CARE [facility] 2020-08-24 08:45 OTHER HALFWAY (CURRENT) DRUG [facility] THERAPY 2020-08-24 08:45 PRSNL HISTORY OF DIS OF THE [facility] BLD/BLD-FORM ORG/IMMUN [facility] 2020-08-24 08:45 PERSONAL HISTORY OF OTHER DISEASES [facility] OF THE [facility]EST[facility] 2020-08-24 08:45 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 2020-08-24 09:20 ACUTE PROMYELOCYTIC [place], NOT [facility] HAVING ACHIEVED REMISSION 2020-08-24 09:20 ACUTE PROMYELOCYTIC [place], IN [facility] REMISSION 2020-08-24 09:20 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 UNSPECIFIED EAR 2020-08-24 09:20 ATRIOVENTRICULAR BLOCK, SECOND [facility] DEGREE 2020-08-24 09:20 OTHER SPECIFIED DISORDERS OF TEETH [facility] AND SUPPORTING STRUCTURES 2020-08-24 09:20 GASTRO-ESOPHAGEAL REFLUX DISEASE [facility] WITHOUT ESOPHAGITIS 2020-08-24 09:20 NAUSEA [facility] [place] 2020-08-24 09:20 LOCALIZED EDEMA [facility] [place] 2020-08-24 09:20 ANOREXIA [facility] [place] 2020-08-24 09:20 ADVERSE EFFECT OF ANTINEOPLASTIC [facility] AND IMMUNOSUP DRUGS, INIT 2020-08-24 09:20 ENCOUNTER FOR ANTINEOPLASTIC [facility] CHEMOTHERAPY 2020-08-24 09:20 ENCOUNTER FOR PALLIATIVE CARE [facility] 2020-08-24 09:20 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 2020-08-24 09:20 PRSNL HISTORY OF DIS OF THE [facility] BLD/BLD-FORM ORG/IMMUN MECHNSM 2020-08-24 09:20 PERSONAL HISTORY OF OTHER DISEASES [facility] OF THE [facility] 2020-08-24 09:20 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 2020-08-27 08:00 ACUTE PROMYELOCYTIC [place], NOT [facility] HAVING ACHIEVED REMISSION 2020-08-27 08:00 ACUTE PROMYELOCYTIC [place], IN [facility] REMISSION 2020-08-27 08:00 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 UNSPECIFIED EAR 2020-08-27 08:00 ATRIOVENTRICULAR BLOCK, SECOND [facility] DEGREE 2020-08-27 08:00 OTHER SPECIFIED DISORDERS OF TEETH [facility] AND SUPPORTING STRUCTURES 2020-08-27 08:00 GASTRO-ESOPHAGEAL REFLUX DISEASE [facility] WITHOUT ESOPHAGITIS 2020-08-27 08:00 NAUSEA [facility] [place] 2020-08-27 08:00 LOCALIZED EDEMA [facility] Medic [facility] 2020-08-27 08:00 ANOREXIA [facility] 2020-08-27 08:00 ADVERSE EFFECT OF ANTINEOPLASTIC [facility] AND IMMUNOSUP DRUGS, INIT 2020-08-27 08:00 ENCOUNTER FOR ANTINEOPLASTIC [facility] CHEMOTHERAPY 2020-08-27 08:00 ENCOUNTER FOR PALLIATIVE CARE [facility] 2020-08-27 08:00 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 2020-08-27 08:00 PRSNL HISTORY OF DIS OF THE [facility] BLD/BLD-FORM ORG/IMMUN MECHNSM 2020-08-27 08:00 PERSONAL HISTORY OF OTHER DISEASES [facility] OF THE [facility]IGESTIVE SYSTEM 2020-08-27 08:00 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 2020-08-27 08:45 ACUTE PROMYELOCYTIC [place], NOT [facility] HAVING ACHIEVED REMISSION 2020-08-27 08:45 ACUTE PROMYELOCYTIC [place], IN [facility] REMISSION 2020-08-27 08:45 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 UNSPECIFIED EAR 2020-08-27 08:45 ATRIOVENTRICULAR BLOCK, SECOND [facility] DEGREE 2020-08-27 08:45 OTHER SPECIFIED DISORDERS OF TEETH [facility] AND SUPPORTING STRUCTURES 2020-08-27 08:45 GASTRO-ESOPHAGEAL REFLUX DISEASE [facility] WITHOUT ESOPHAGITIS 2020-08-27 08:45 NAUSEA [facility] 2020-08-27 08:45 LOCALIZED EDEMA [facility] 2020-08-27 08:45 ANOREXIA [facility] 2020-08-27 08:45 ADVERSE EFFECT OF ANTINEOPLASTIC [facility] AND IMMUNOSUP DRUGS, INIT 2020-08-27 08:45 ENCOUNTER FOR ANTINEOPLASTIC [facility] CHEMOTHERAPY 2020-08-27 08:45 ENCOUNTER FOR PALLIATIVE CARE [facility] 2020-08-27 08:45 OTHER HALFWAY (CURRENT) DRUG [facility] THERAPY 2020-08-27 08:45 PRSNL HISTORY OF DIS OF THE [facility] BLD/BLD-FORM ORG/IMMUN MECHNSM 2020-08-27 08:45 PERSONAL HISTORY OF OTHER DISEASES [facility] OF THE [facility]ESTIVE SYSTEM 2020-08-27 08:45 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 2020-08-27 14:45 LOCALIZED EDEMA [facility] 2020-08-27 14:45 HISTORY OF FALLING [facility] 2020-08-28 08:45 ACUTE PROMYELOCYTIC [place], IN [facility] REMISSION 2020-08-28 08:45 OTHER CHRONIC PAIN [facility] 2020-08-28 08:45 UNSPECIFIED HEARING LOSS, [facility] UNSPECIFIED EAR 2020-08-28 08:45 ATRIOVENTRICULAR BLOCK, [facility] DEGREE 2020-08-28 08:45 LOCALIZED EDEMA [facility] 2020-08-28 08:45 ENCOUNTER FOR ANTINEOPLASTIC [facility] CHEMOTHERAPY 2020-08-28 08:45 ENCOUNTER FOR PALLIATIVE CARE [facility] 2020-08-28 08:45 OTHER HALFWAY (CURRENT) DRUG [facility] THERAPY 2020-08-28 08:45 PRSNL HISTORY OF DIS OF THE [facility]28 08:45 PERSONAL HISTORY OF OTHER DISEASES [facility] OF THE [facility] 2020-08-28 08:45 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 2020-08-29 08:00 ACUTE PROMYELOCYTIC [place], IN [facility] REMISSION 2020-08-29 08:00 OTHER CHRONIC PAIN [facility] 2020-08-29 08:00 UNSPECIFIED HEARING LOSS, 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 UNSPECIFIED EAR 2020-08-29 08:45 ATRIOVENTRICULAR BLOCK, [facility] DEGREE 2020-08-29 08:45 LOCALIZED EDEMA [facility] 2020-08-29 08:45 ENCOUNTER FOR ANTINEOPLASTIC [facility] CHEMOTHERAPY 2020-08-29 08:45 ENCOUNTER FOR PALLIATIVE CARE [facility] 2020-08-29 08:45 OTHER HALFWAY (CURRENT) DRUG [facility] THERAPY 2020-08-29 08:45 PRSNL HISTORY OF DIS OF THE [facility]LD[facility]29 08:45 PERSONAL HISTORY OF OTHER DISEASES [facility] OF THE [facility] 2020-08-29 08:45 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 2020-08-30 10:30 ACUTE PROMYELOCYTIC [place]EMIA, IN [facility] REMISSION 2020-08-30 10:30 OTHER CHRONIC PAIN [facility] 2020-08-30 10:30 UNSPECIFIED HEARING LOSS, [facility] UNSPECIFIED EAR 2020-08-30 10:30 ATRIOVENTRICULAR BLOCK, [facility] DEGREE 2020-08-30 10:30 LOCALIZED EDEMA [facility] 2020-08-30 10:30 ENCOUNTER FOR ANTINEOPLASTIC [facility] CHEMOTHERAPY 2020-08-30 10:30 ENCOUNTER FOR PALLIATIVE CARE [facility] 2020-08-30 10:30 OTHER HALFWAY (CURRENT) DRUG [facility] THERAPY 2020-08-30 10:30 PRSNL HISTORY OF DIS OF THE [facility]LD[facility]-30 10:30 PERSONAL HISTORY OF OTHER DISEASES [facility] OF THE [facility] 2020-08-30 10:30 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 2020-08-31 08:00 ACUTE PROMYELOCYTIC [place], IN [facility] REMISSION 2020-08-31 08:00 OTHER CHRONIC PAIN [facility] 2020-08-31 08:00 UNSPECIFIED HEARING LOSS, 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 2020-08-31 08:45 PRSNL HISTORY OF DIS OF THE [facility] BLD/BLD-[facility] 2020-08-31 08:45 PERSONAL HISTORY OF OTHER DISEASES [facility] 2020-08-31 08:45 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 2020-09-03 12:00 ACUTE PROMYELOCYTIC [place]EMIA, IN [facility] REMISSION 2020-09-03 12:00 RESTLESS LEGS SYNDROME [facility] 2020-09-03 12:00 OTHER CHRONIC PAIN [facility] 2020-09-03 12:00 UNSPECIFIED HEARING LOSS, [facility] UNSPECIFIED EAR 2020-09-03 12:00 ATRIOVENTRICULAR BLOCK, [facility] DEGREE 2020-09-03 12:00 LOCALIZED EDEMA [facility] 2020-09-03 12:00 ENCOUNTER FOR ANTINEOPLASTIC [facility] CHEMOTHERAPY 2020-09-03 12:00 ENCOUNTER FOR PALLIATIVE CARE [facility] 2020-09-03 12:00 OTHER HALFWAY (CURRENT) DRUG [facility] THERAPY 2020-09-03 12:00 PRSNL HISTORY OF DIS OF THE [facility] BLD/BLD-FORM ORG/IMMUN MECHNSM 2020-09-03 12:00 PERSONAL HISTORY OF OTHER DISEASES [facility] THE [facility] 2020-09-03 12:00 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 2020-09-14 11:00 LOCALIZED EDEMA [facility] 2020-09-14 11:00 HISTORY OF FALLING [facility] 2020-09-17 09:15 ACUTE PROMYELOCYTIC LE[place]EMIA, IN [facility] REMISSION 2020-09-17 09:15 RESTLESS LEGS SYNDROME [facility] 2020-09-17 09:15 OTHER CHRONIC PAIN [facility] 2020-09-17 09:15 UNSPECIFIED HEARING LOSS, [facility] UNSPECIFIED EAR 2020-09-17 09:15 ATRIOVENTRICULAR BLOCK, [facility] DEGREE 2020-09-17 09:15 GASTRO-ESOPHAGEAL REFLUX DISEASE [facility] WITHOUT ESOPHAGITIS 2020-09-17 09:15 LOCALIZED EDEMA [facility] 2020-09-17 09:15 ENCOUNTER FOR ANTINEOPLASTIC [facility] CHEMOTHERAPY 2020-09-17 09:15 ENCOUNTER FOR PALLIATIVE CARE [facility] 2020-09-17 09:15 OTHER HALFWAY (CURRENT) DRUG [facility] THERAPY 2020-09-17 09:15 PRSNL HISTORY OF DIS OF THE [facility] BLD/BLD-FORM ORG/IMMUN MECHNSM 2020-09-17 09:15 PERSONAL HISTORY OF OTHER DISEASES [facility] OF THE [facility]ESTIVE [facility] 2020-09-17 09:15 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 2020-10-01 08:00 ACUTE PROMYELOCYTIC LEUKEMIA, IN [facility] REMISSION 2020-10-01 08:00 RESTLESS LEGS SYNDROME [facility] 2020-10-01 08:00 OTHER CHRONIC PAIN [facility] 2020-10-01 08:00 UNSPECIFIED HEARING LOSS, [facility] 08:00 ATRIOVENTRICULAR BLOCK, [facility] DEGREE 2020-10-01 08:00 GASTRO-ESOPHAGEAL REFLUX DISEASE [facility] WITHOUT ESOPHAGITIS 2020-10-01 08:00 LOCALIZED EDEMA [facility] 2020-10-01 08:00 ENCOUNTER FOR ANTINEOPLASTIC [facility] CHEMOTHERAPY 2020-10-01 08:00 ENCOUNTER FOR PALLIATIVE CARE [facility] 2020-10-01 08:00 OTHER HALFWAY (CURRENT) DRUG [facility] THERAPY 2020-10-01 08:00 PRSNL HISTORY OF DIS OF THE [facility]LD[facility]10[facility]01 08:00 PERSONAL HISTORY OF OTHER DISEASES [facility] OF THE DIGESTIVE SYSTEM 2020-10-01 08:00 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 2020-10-02 08:45 ACUTE PROMYELOCYTIC LEUKEMIA, IN [facility] REMISSION 2020-10-02 08:45 RESTLESS LEGS SYNDROME [facility] 2020-10-02 08:45 OTHER CHRONIC PAIN [facility] 2020-10-02 08:45 UNSPECIFIED HEARING LOSS, [facility] UNSPECIFIED EAR 2020-10-02 08:45 ATRIOVENTRICULAR BLOCK, [facility] DEGREE 2020-10-02 08:45 GASTRO-ESOPHAGEAL REFLUX DISEASE [facility] WITHOUT ESOPHAGITIS 2020-10-02 08:45 LOCALIZED EDEMA [facility] 2020-10-02 08:45 ENCOUNTER FOR ANTINEOPLASTIC [facility] CHEMOTHERAPY 2020-10-02 08:45 ENCOUNTER FOR PALLIATIVE CARE [facility] 2020-10-02 08:45 OTHER HALFWAY (CURRENT) DRUG [facility] THERAPY 2020-10-02 08:45 PRSNL HISTORY OF DIS OF THE [facility] BLD/BLD-FORM ORG/IMMUN MECHNSM 2020-10-02 08:45 PERSONAL HISTORY OF OTHER DISEASES [facility] OF THE DIGESTIVE SYSTEM 2020-10-02 08:45 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 2020-10-03 08:00 ACUTE PROMYELOCYTIC LEUKEMIA, IN [facility] REMISSION 2020-10-03 08:00 RESTLESS LEGS SYNDROME [facility] 2020-10-03 08:00 OTHER CHRONIC PAIN [facility] 2020-10-03 08:00 UNSPECIFIED HEARING LOSS, [facility] UNSPECIFIED EAR 2020-10-03 08:00 ATRIOVENTRICULAR BLOCK, [facility] DEGREE 2020-10-03 08:00 GASTRO-ESOPHAGEAL REFLUX DISEASE [facility] WITHOUT ESOPHAGITIS 2020-10-03 08:00 LOCALIZED EDEMA [facility] 2020-10-03 08:00 ENCOUNTER FOR ANTINEOPLASTIC [facility] CHEMOTHERAPY 2020-10-03 08:00 ENCOUNTER FOR PALLIATIVE CARE [facility] 2020-10-03 08:00 OTHER HALFWAY (CURRENT) DRUG [facility] THERAPY 2020-10-03 08:00 PRSNL HISTORY OF DIS OF THE [facility] BLD/BLD-FORM ORG/IMMUN MECHNSM 2020-10-03 08:00 PERSONAL HISTORY OF OTHER DISEASES [facility] 2020-10-03 08:00 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 2020-10-04 08:45 ACUTE PROMYELOCYTIC LEUKEMIA, IN [facility] REMISSION 2020-10-04 08:45 RESTLESS LEGS SYNDROME [facility] 2020-10-04 08:45 OTHER CHRONIC PAIN [facility] 2020-10-04 08:45 UNSPECIFIED HEARING LOSS, 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 2020-10-05 08:45 PRSNL HISTORY OF DIS OF THE [facility] BLD/BLD[facility]10-05 08:45 PERSONAL HISTORY OF OTHER DISEASES [facility] 2020-10-05 08:45 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 2020-10-08 08:00 ACUTE PROMYELOCYTIC LEUKEMIA, IN [facility] REMISSION 2020-10-08 08:00 RESTLESS LEGS SYNDROME [facility] 2020-10-08 08:00 OTHER CHRONIC PAIN [facility] 2020-10-08 08:00 UNSPECIFIED HEARING LOSS, [facility] 2020-10-08 08:00 ATRIOVENTRICULAR BLOCK, [facility] DEGREE 2020-10-08 08:00 GASTRO-ESOPHAGEAL REFLUX DISEASE [facility] WITHOUT ESOPHAGITIS 2020-10-08 08:00 LOCALIZED EDEMA [facility] 2020-10-08 08:00 ENCOUNTER FOR ANTINEOPLASTIC [facility] CHEMOTHERAPY 2020-10-08 08:00 ENCOUNTER FOR PALLIATIVE CARE [facility] 2020-10-08 08:00 OTHER HALFWAY (CURRENT) DRUG [facility] THERAPY 2020-10-08 08:00 PRSNL HISTORY OF DIS OF THE [facility] BLD/BLD-FORM [facility] 2020-10-08 08:00 PERSONAL HISTORY OF OTHER DISEASES [facility] 2020-10-08 08:00 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 2020-10-09 08:45 ACUTE PROMYELOCYTIC LEUKEMIA, IN [facility] REMISSION 2020-10-09 08:45 RESTLESS LEGS SYNDROME [facility] 2020-10-09 08:45 OTHER CHRONIC PAIN [facility] 2020-10-09 08:45 UNSPECIFIED HEARING LOSS, 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 2020-10-10 08:00 GASTRO-ESOPHAGEAL REFLUX DISEASE [facility] WITHOUT ESOPHAGITIS 2020-10-10 08:00 LOCALIZED EDEMA [facility] 2020-10-10 08:00 ENCOUNTER FOR ANTINEOPLASTIC [facility] CHEMOTHERAPY 2020-10-10 08:00 ENCOUNTER FOR PALLIATIVE CARE [facility] 2020-10-10 08:00 OTHER HALFWAY (CURRENT) DRUG [facility] THERAPY 2020-10-10 08:00 PRSNL HISTORY OF DIS OF THE [facility] BLD/BLD-FORM ORG/IMMUN [facility] 2020-10-10 08:00 PERSONAL HISTORY OF OTHER DISEASES [facility] 2020-10-10 08:00 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 2020-10-11 08:30 ACUTE PROMYELOCYTIC LEUKEMIA, IN [facility] REMISSION 2020-10-11 08:30 RESTLESS LEGS SYNDROME [facility] 2020-10-11 08:30 OTHER CHRONIC PAIN [facility] 2020-10-11 08:30 UNSPECIFIED HEARING LOSS, 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 UNSPECIFIED EAR 2020-10-15 08:00 ATRIOVENTRICULAR BLOCK, [facility] DEGREE 2020-10-15 08:00 GASTRO-ESOPHAGEAL REFLUX DISEASE [facility] WITHOUT ESOPHAGITIS 2020-10-15 08:00 LOCALIZED EDEMA [facility] 2020-10-15 08:00 ENCOUNTER FOR ANTINEOPLASTIC [facility] CHEMOTHERAPY 2020-10-15 08:00 ENCOUNTER FOR PALLIATIVE CARE [facility] 2020-10-15 08:00 OTHER HALFWAY (CURRENT) DRUG [facility] THERAPY 2020-10-15 08:00 PRSNL HISTORY OF DIS OF THE [facility] BLD/BLD-FORM ORG/IMMUN MECHNSM 2020-10-15 08:00 PERSONAL HISTORY OF OTHER DISEASES [facility] 2020-10-15 08:00 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 2020-10-16 08:45 ACUTE PROMYELOCYTIC LEUKEMIA, IN [facility] REMISSION 2020-10-16 08:45 RESTLESS LEGS SYNDROME [facility] 2020-10-16 08:45 OTHER CHRONIC PAIN [facility] 2020-10-16 08:45 UNSPECIFIED HEARING LOSS, 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16 08:45 PERSONAL HISTORY OF OTHER DISEASES [facility] 2020-10-16 08:45 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 2020-10-17 08:00 ACUTE PROMYELOCYTIC LEUKEMIA, IN [facility] REMISSION 2020-10-17 08:00 RESTLESS LEGS SYNDROME [facility] 2020-10-17 08:00 OTHER CHRONIC PAIN [facility] 2020-10-17 08:00 UNSPECIFIED HEARING LOSS, 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 2020-10-18 08:30 PRSNL HISTORY OF DIS OF THE [facility] BLD/BLD-FORM ORG/IMMUN [facility] 2020-10-18 08:30 PERSONAL HISTORY OF OTHER DISEASES [facility] 2020-10-18 08:30 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 2020-10-22 07:56 ACUTE PROMYELOCYTIC LEUKEMIA, IN [facility] REMISSION 2020-10-22 07:56 RESTLESS LEGS SYNDROME [facility] 2020-10-22 07:56 OTHER CHRONIC PAIN [facility] 2020-10-22 07:56 UNSPECIFIED HEARING LOSS, [facility] UNSPECIFIED EAR 2020-10-22 07:56 ATRIOVENTRICULAR BLOCK, SECOND [facility] DEGREE 2020-10-22 07:56 GASTRO-ESOPHAGEAL REFLUX DISEASE [facility] WITHOUT ESOPHAGITIS 2020-10-22 07:56 LOCALIZED EDEMA [facility] 2020-10-22 07:56 ENCOUNTER FOR ANTINEOPLASTIC [facility] CHEMOTHERAPY 2020-10-22 07:56 ENCOUNTER FOR PALLIATIVE CARE [facility] 2020-10-22 07:56 OTHER HALFWAY (CURRENT) DRUG [facility] THERAPY 2020-10-22 07:56 PRSNL HISTORY OF DIS OF THE [facility] BLD/BLD-FORM ORG/IMMUN MECHNSM 2020-10-22 07:56 PERSONAL HISTORY OF OTHER DISEASES [facility] 2020-10-22 07:56 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 2020-10-22 13:40 ACUTE PROMYELOCYTIC LEUKEMIA, IN [facility] REMISSION 2020-10-22 13:40 RESTLESS LEGS SYNDROME [facility] 2020-10-22 13:40 OTHER CHRONIC PAIN [facility] 2020-10-22 13:40 UNSPECIFIED HEARING LOSS, [facility] UNSPECIFIED EAR 2020-10-22 13:40 ATRIOVENTRICULAR BLOCK, [facility] DEGREE 2020-10-22 13:40 GASTRO-ESOPHAGEAL REFLUX DISEASE [facility] WITHOUT ESOPHAGITIS 2020-10-22 13:40 LOCALIZED EDEMA [facility] 2020-10-22 13:40 ENCOUNTER FOR ANTINEOPLASTIC [facility] CHEMOTHERAPY 2020-10-22 13:40 ENCOUNTER FOR PALLIATIVE CARE [facility] 2020-10-22 13:40 OTHER HALFWAY (CURRENT) DRUG [facility] THERAPY 2020-10-22 13:40 PRSNL HISTORY OF DIS OF THE [facility]LD[facility]BLD[facility]-10-22 13:40 PERSONAL HISTORY OF OTHER DISEASES [facility] 2020-10-22 13:40 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 2020-10-23 08:45 ACUTE PROMYELOCYTIC LEUKEMIA, IN [facility] REMISSION 2020-10-23 08:45 RESTLESS LEGS SYNDROME [facility] 2020-10-23 08:45 OTHER CHRONIC PAIN [facility] 2020-10-23 08:45 UNSPECIFIED HEARING LOSS, [facility] UNSPECIFIED EAR 2020-10-23 08:45 ATRIOVENTRICULAR BLOCK, SECOND [facility] DEGREE 2020-10-23 08:45 GASTRO-ESOPHAGEAL REFLUX DISEASE [facility] WITHOUT ESOPHAGITIS 2020-10-23 08:45 LOCALIZED EDEMA [facility] 2020-10-23 08:45 ENCOUNTER FOR ANTINEOPLASTIC [facility] CHEMOTHERAPY 2020-10-23 08:45 ENCOUNTER FOR PALLIATIVE CARE [facility] 2020-10-23 08:45 OTHER HALFWAY (CURRENT) DRUG [facility] THERAPY 2020-10-23 08:45 PRSNL HISTORY OF DIS OF THE [facility] BLD/BLD-FORM ORG/IMMUN [facility] 2020-10-23 08:45 PERSONAL HISTORY OF OTHER DISEASES [facility] 2020-10-23 08:45 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 2020-10-24 08:00 ACUTE PROMYELOCYTIC LEUKEMIA, IN [facility] REMISSION 2020-10-24 08:00 RESTLESS LEGS SYNDROME [facility] 2020-10-24 08:00 OTHER CHRONIC PAIN [facility] 2020-10-24 08:00 UNSPECIFIED HEARING LOSS, 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 UNSPECIFIED EAR 2020-10-25 08:45 ATRIOVENTRICULAR BLOCK, [facility] DEGREE 2020-10-25 08:45 GASTRO-ESOPHAGEAL REFLUX DISEASE [facility] WITHOUT ESOPHAGITIS 2020-10-25 08:45 LOCALIZED EDEMA [facility] 2020-10-25 08:45 ENCOUNTER FOR ANTINEOPLASTIC [facility] CHEMOTHERAPY 2020-10-25 08:45 ENCOUNTER FOR PALLIATIVE CARE [facility] 2020-10-25 08:45 OTHER HALFWAY (CURRENT) DRUG [facility] THERAPY 2020-10-25 08:45 PRSNL HISTORY OF DIS OF THE [facility] BLD/BLD-FORM ORG/IMMUN MECHNSM 2020-10-25 08:45 PERSONAL HISTORY OF OTHER DISEASES [facility] 2020-10-25 08:45 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 2020-10-26 08:45 ACUTE PROMYELOCYTIC LEUKEMIA, IN [facility] REMISSION 2020-10-26 08:45 RESTLESS LEGS SYNDROME [facility] 2020-10-26 08:45 OTHER CHRONIC PAIN [facility] 2020-10-26 08:45 UNSPECIFIED HEARING LOSS, 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 2020-10-26 08:45 PRSNL HISTORY OF DIS OF THE [facility] BLD/BLD-FORM ORG/IMMUN [facility] 2020-10-26 08:45 PERSONAL HISTORY OF OTHER DISEASES [facility] 2020-10-26 08:45 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 Allergies date description [facility] BEE VENOM [facility] CEPHALEXIN [facility] CY[facility]OACRYL[facility] GABAPENTIN [facility] PR[facility]NISONE [facility] SULFAMETHOXAZOLE [facility] [place] TETRACYCLINE [facility] TRAMADOL [facility] NO KNOWN ENVIRONMENTAL ALLERGIES [facility] NSAIDS [facility] PENICILLINS [facility] ADHESIVE \T\ TAPE [facility] NO KNOWN [facility]ERGIES [facility] NO ALLERGY INFORMATION AVAILABLE [facility] LALO INHIBITORS [facility] PENICILLINS [facility] NO KNOWN ALLERGIES [facility] LATEX [facility] CODEINE [facility] OXYCODONE [facility] PSEUDOEPHEDRINE [facility] LOVASTATIN [facility] PIROXICAM [facility] SIMVASTATIN [facility] AFRIN (PSEUDOEPHEDRINE) [facility] No Known Drug Allergies [facility] [place] ACETAMINOPHEN [facility] AMOXICILLIN [facility] ATORVASTATIN CALCIUM [facility] ATORVASTATIN [facility] CLINDAMYCIN [facility] DUST MITE EXTRACT [facility] GAB[facility]IN [facility] GEMFIBROZIL [facility] KETAMINE [facility] LEVOFLOXACIN [facility] LOSARTAN [facility] MORPHINE [facility] NAPROXEN [facility] OXYBUTYNIN [facility] PANTOPRAZOLE [facility] PENICILLIN V POTASSIUM [facility] POLLEN EXTRACT [facility] PROCHLORPERAZINE [facility] SIMVASTATIN [facility] VARENICLINE [facility] EQUAGESIC [facility] MORPHINE SULFATE ER [facility] NO KNOWN ENVIRONMENTAL ALLERGIES [facility] PENIC[facility]INS [facility] SULFA ANTIBIOTICS [facility] UNCODED NONSCREENABLE ALLERGEN [facility] ALENDRONATE SODIUM [facility] ASPIRIN [facility] DILTIAZEM [facility] FLUTICASONE PROPIONATE [facility] FLUTICASONE [facility] HYDROCODONE BITARTRATE [facility] IBUPROFEN [facility] METOPROLOL [facility] NAPROXEN [facility] OXYCODONE-ACETAMINOPHEN [facility] PENICILLIN G [facility] PENICILLIN [facility] NO KNOWN ALLERGIES [facility] NSAIDS (NON-STEROIDAL ANTI-INFLAMMATORY DRUG) [facility] PENICILLINS [facility] SULFA (SULFONAMIDE ANTIBIOTICS) [facility] ADHESIVE [facility] NO KNOWN ALLERGIES [facility] METHOTREXATE ANALOGUES [facility] IODINE [facility] LATEX [facility] TAPENTADOL [facility] BUPROPION HCL [facility] LITHIUM [facility] MORPHINE [facility] CODEINE [facility] ASPIRIN [facility] WALNUT [facility] MUSHROOM [facility] PSEUDOEPHEDRINE HCL [facility] LOVASTATIN [facility] PREDNISONE [facility] BETAMETHASONE [facility] FLUNISOLIDE [facility] HYDROCHLOROTHIAZIDE [facility] CEPHALEXIN [facility] ERYTHROMYCIN BASE [facility] BEE STING KIT [facility] POLLEN EXTRACTS [facility] POVIDONE-IODINE [facility] SIMVASTATIN [facility] NABUMETONE [facility] SER[facility]ALINE HCL [facility] AMOXICILLIN [facility] PAROXETINE HCL [facility] Z[facility]PIDEM [facility] GABAPENTIN [facility] VENLAFAXINE [facility] NORTRIPTYLINE [facility] MEPERIDINE [facility] HYDROMORPHONE [facility] VANCOMYCIN [facility] [place] CORTISONE [facility] FEXOFENADINE HCL [facility] MELOXICAM [facility] LATEX [facility] [facility] LEVONORGESTREL-ETHINYL ESTRAD [facility] ERYTHROMYCIN [facility] ADHESIVE TAPE-SILICONES [facility] ciprofloxacin [facility] chlorhexidine [facility] Results Social History date description facility [id number]
== END 2020-10-26 09:31 | disposition home or self-care (01) ==
LOC: PC 09:30
PROVIDERS: ATTEND Nurse Practitioner Adult Health
DX: Z51.5 Encounter for palliative care (principal); C92.41 Acute promyelocytic leukemia, in remission; G25.81 Restless legs syndrome; R53.83 Other fatigue; G47.00 Insomnia, unspecified; R20.2 Paresthesia of skin; F41.9 Anxiety disorder, unspecified
CPT/HCPCS: 99215

== ENCOUNTER 2020-11-21 07:00 | Outpatient (CLI) | payer MEDICARE, OTHER | END 2020-11-21 23:59 | disposition home or self-care (01) | LOC: LAB.R 07:00 | PROVIDERS: ATTEND Nurse Practitioner | DX: L02.91 Cutaneous abscess, unspecified (principal) | CPT/HCPCS: 81599; 87070; 87075; 87076; 87205 ==

== ENCOUNTER 2020-12-05 08:00 | Outpatient (CLI) | payer MEDICARE, OTHER | END 2020-12-05 23:59 | disposition home or self-care (01) | LOC: LAB.N 08:00 | PROVIDERS: ATTEND Nurse Practitioner | DX: L03.019 Cellulitis of unspecified finger (principal) | CPT/HCPCS: 81599; 87070; 87075; 87205 ==

== ENCOUNTER 2020-12-10 15:00 | Outpatient (CLI) | payer MEDICARE, OTHER ==
--- NOTE | 2020-12-10 18:32 | CONSULTATION NOTE ---
Palliative Care Follow Up - Referral Referring Provider: Dr. 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 He received induction chemotherapy and I was seeing him through consolidation from 03/2020-10/2020. He does have known second-degree heart block with QTC prolongation, and received his arsenic dosing with holding and reduction down to 50%. At this point in time he is completed his ATRA, had his restaging bone marrow biopsy, and does not require further maintenance treatment. He just had his port removed, has some peeling skin and bruising but no s/s of infection. He had recently gone to urgent care, because of an infection of his third left finger nail, is currently on Bactrim twice daily with mild improvement. He is quite upset though, because they revisited his bradycardia, he was 30-35 according to the records, and told him to go to the ER. Patient has been asymptomatic with this, has been seeing his director of occupational therapy Dr. Rolle, at this point in time has not needed any further intervention. I did follow-up with oncology, reported there would be no improvement even off the arsenic, and if patient symptomatic would need intervention, if not would still recommend following up with cardiology. I passed this along, patient's heart rate today is 42, he has no dizziness, he does have some persistent fatigue by the end of the day, no palpitations, no chest pain, no syncope, but given his concerns, and level of anxiety and age, I did recommend follow through on cardiology appointme nt for work-up and consideration regarding the pros and cons of pacemaker placement. He will make an appointment in [place] as is connected to medical center down there. Patient getting ready to travel to [place], has many questions and confusion about his medications. Unfortunately did not bring his list of questions/medications. We reviewed his current list in the record, ordered new medications, and reviewed current regimen using for his back pain, restless leg syndrome, and insomnia. Past Medical History: Arthritis, history of pneumonia, history of heart block, restless leg syndrome, hyperlipidemia, rhinosinusitis, hypertension, colonic polyps, complications with original induction therapy DIC and GI bleed, severe hearing loss with hearing aids, chronic vision loss with recent cataract surgery Social History - Living Situation Living arrangement: At home Living Situation: With spouse/s.o. Support System: Patient lives with his significant other Niki, they have been together for 13 years, she is finally feeling better as she had been in a cervical collar. Patient is quite hard of hearing, does make it difficult for communications. 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 Medications/Allergies - Medications Home Medications: Ambulatory Orders Medication Instructions Recorded Confirmed Zolpidem Tartrate 10 mg PO DAILY 04/16/20 12/11/20 Acyclovir 400 mg PO BID MDD one month 04/17/20 12/11/20 Aspirin [Aspirin EC] 81 mg PO DAILY 04/17/20 12/11/20 Cholecalciferol (Vitamin D3) 1,250 mcg PO DAILY 04/17/20 12/11/20 [Vitamin D3] Lisinopril [Zestril] 20 mg PO DAILY 04/17/20 12/11/20 Naproxen Sodium 220 mg PO DAILY PRN 04/17/20 12/11/20 [place]-3 Fatty Acids/Fish Oil 1 cap PO DAILY 04/17/20 12/11/20 [[place]-3 Fish Oil 1,000 mg Sfgl] traMADol [Ultram] 50 mg PO Q6HR PRN 04/25/20 12/11/20 Diclofenac Sodium [Voltaren] 100 gm TP DAILY PRN 05/07/20 12/11/20 Ondansetron HCl [Zofran] 4 mg PO Q8HR PRN #30 tab 06/05/20 12/11/20 polyethylene glycoL 3350 [Miralax] 17 gm PO DAILY MDD using 3/4 capful 07/06/20 12/11/20 Pregabalin [Lyrica] 200 mg PO QPM 10/05/20 12/11/20 Sulfamethox/Trimeth 800/160 1 tab PO BID MDD 7 days 12/11/20 12/11/20 [Bactrim Ds] - Allergies Allergies/Adverse Reactions: Allergies Allergy/AdvReac Type Severity Reaction Status Date / Time chlorhexidine AdvReac Rash Verified 11/05/20 09:20 Review of Systems - Constitutional Constitutional: reports: Weight stable - Eyes Eyes: reports: Vision loss, Corrective lenses - Ears, Nose & Throat Ears, Nose & Throat: reports: Hearing loss, Hearing aids. denies: Mouth lesions - Cardiovascular Cardiovascular: reports: Decr. exercise tolerance (improving up to 3 miles walking). denies: Edema - Respiratory Respiratory: reports: Cough (occasional/clear mostly dry), SOB with exertion. denies: SOB at rest - Gastrointestinal Gastrointestinal: reports: Good appetite. denies: Constipation (managing with miralax) - Genitourinary Genitourinary: reports: Frequency - Musculoskeletal Musculoskeletal: reports: Back pain (improved; does better if consistent with exercises), Stiffness (in am), Muscle weakness (improved) - Integumentary Integumentary: reports: Dryness, Nail changes (nail infection; seen at urgent care third finger on left) - Neurological Neurological: reports: General weakness, Numbness (bilateral in feet) - Psychiatric Psychiatric: reports: Anxiety. denies: Depression - Hematologic/Lymphatic Hematologic/Lymph: denies: Anemia, Bruising, Recurrent infections - All Other Systems All Other Systems: reports: Reviewed and negative Physical Exam - Vital Signs Pulse Rate: 42 Respiratory Rate: 16 O2 Saturation: 98 (ra @ rest) Blood Pressure: 137/73 - Physical Exam General Appearance: positive: No acute distress, Alert, Anxious (getting ready to go "south";) Eyes Bilateral: positive: Other (watery) ENT: positive: No signs of dehydration Neck: positive: Trachea midline Cardiovascular: positive: Bradycardia Respiratory: positive: No respiratory distress, Breath sounds nml Abdomen: positive: Non-tender, Soft, Nml bowel sounds Skin: positive: Dryness, Wound (nailbed of left hand with erythema; patient reports improving; no drainage noted) Extremities: positive: No pedal edema Neurologic/Psychiatric: positive: Oriented x3, Mood/affect nml Palliative Care - POLST Patient has POLST: No POLST Status: Full Code Pain: Pain improved, Location (back; legs), Severity (5/10), Pattern (starts up at evening; controlled with combinaton of medications of ropinorole; pregablin late evening with sleeping pill; then takes tramadol right before sleep) Tiredness/Fatigue: Mild (1-3) Drowsiness/Sedation: Mild (1-3) Nausea: None Anorexia: None Dyspnea: None Depression: Mild (1-3) Anxiety: Moderate (4-6) Feelings of wellbeing/Perceived Quality of Life: Good, Acceptable, Improved Sleep: Sleeps well, Sleep improved Constipation: Yes, Managed (titrating miralax) Performance Status: Patient continues with his exercises, and continued progressive ambulation. He is up to 3 miles a day before needing to rest. He is able to golf again. He is planning to fly down to [place] versus drive. - Palliative Care Discussion: Patient is somewhat anxious about being "let go", does understand he will be getting follow-up and labs in 3 months. He remains what he calls himself is a glass half empty kind of aarti, easily gets quite anxious. He is now quite worried about his cardiac after his visit to urgent care. Reviewed reasons to access emergency room evaluation, otherwise encouraged to make appointment and follow-up both either to see if it is appropriate intervention, or to ease his mind. He does understand he is a 80 years of age, has found this journey to be quite stressful, but also has learned a lot about himself. He remains quite anxious about his medications, thus the appointment today to review, as well as answer questions particular around Covid vaccine, traveling, and follow-up in the future. Impression and Recommendations - Palliative Care Impression: This is a 80 year old gentleman with APL, now in remission. His treatment was of curative intent, is now currently on surveillance. He has had improvement with his paresthesias, RLS, insomnia with current regimen. Palliative care is provide support for processing patient's anxiety, assist with symptom management, anticipatory guidance Recommendations/Counseling Done: 1. RLS. Patient is added back in ropinirole with good results, he reports his restless legs start about late evening, does feel his current combination of medications both for his paresthesias, and RLS with the pregabalin at 200 mg, has been of help. New prescriptions ordered for 90 days given patient's travel. 2. Insomnia. Patient continues with Ambien 10 mg at at bedtime, does find he is sleeping well, particular if he takes a tramadol right before he goes to bed it helps with his back and shoulder pain. He has been sleeping well, is quite pleased as this is been a huge source of distress for him. Patient has been encouraged if possible to decrease down to 5 mg, as he is doing better overall, will continue to evaluate. 3. Bradycardia. Patient does not present with any symptoms, but with high anxiety. Patient does have known heart block. Recommended he follow-up with cardiology when he gets [place], will make an appointment. Counseling provided regarding weighing benefits and burdens, may help his energy as well as possibly help with his cognitive changes. Patient was counseled on signs and symptoms to access ED evaluation, verbalized understanding. 4. Back pain. Patient has been instructed to continue with his back exercises, and continue with his progressive ambulation program. Patient has also been given permission to continue with massage, depending on the Covid restrictions. Has found this really helpful in the past. Patient is using tramadol 50 mg at bedtime with good relief, encouraged to continue weigh benefits and burdens of using this. 5. Constipation. Patient titrating MiraLAX appropriately, with good results, patient is pleased no further intervention needed. 6. Advanced care planning. Patient with significant anxiety regarding transitioning into surveillance, counseling provided to normalize his feelings of grief and loss as he transitions to his next phase. Patient is a high anxiety person, reassured could follow-up with palliative care on return, and expected things to improve as he gets further away from his treatment completion. 7. Medication adherence. Reviewed medications, did have patient go home and call back in hopefully medication list currently accurate. Patient is to continue acyclovir for [address] Jones's instructions, new prescription provided, as well as reviewed symptom management medications. 75 minutes total. Review of labs, records, counseling regarding pain and symptom management, anticipatory guidance, and medication review and ordering of meds.
== END 2020-12-10 15:01 | disposition home or self-care (01) ==
LOC: PC 15:00
PROVIDERS: ATTEND Nurse Practitioner Adult Health
DX: Z51.5 Encounter for palliative care (principal); F41.9 Anxiety disorder, unspecified; G25.81 Restless legs syndrome; G47.00 Insomnia, unspecified; R00.1 Bradycardia, unspecified; M54.9 Dorsalgia, unspecified; K59.00 Constipation, unspecified; C92.41 Acute promyelocytic leukemia, in remission; I44.1 Atrioventricular block, second degree; I10 Essential (primary) hypertension; E78.5 Hyperlipidemia, unspecified; H91.90 Unspecified hearing loss, unspecified ear; H54.7 Unspecified visual loss; Z79.82 Long term (current) use of aspirin; Z79.899 Other long term (current) drug therapy
CPT/HCPCS: 99215

== ENCOUNTER 2021-03-13 16:27 | Outpatient (CLI) | payer MEDICARE, OTHER ==
--- NOTE | 2021-03-13 17:08 | XRAY Report ---
PROCEDURE: Shoulder 2 View LT INDICATIONS: Left shoulder pain TECHNIQUE: 2 views of the shoulder were acquired. COMPARISON: Previous left shoulder series dated 10/30/2017. FINDINGS: Bones: No fractures or dislocations. No suspicious bony lesions. Visualized ribs appear intact. M oderate acromioclavicular and glenohumeral joint space narrowing with periarticular osteophyte format ion. There is superior migration humeral head. Soft tissues: No suspicious soft tissue calcifications. IMPRESSION: 1. Superior migration humeral head suggesting underlying rotator cuff pathology and/or muscle atrophy . 2. Acromioclavicular and glenohumeral joint degeneration. Reviewed by: BEBE Atkins on 03/13/2021 5:07 PM PDT Approved by: Des Bethea MD on 03/13/2021 5:07 PM PDT Station ID: [id number]
--- NOTE | 2021-03-13 17:08 | XRAY Report ---
PROCEDURE: Lumbar Spine 2 View INDICATIONS: CHRONIC LBP TECHNIQUE: 2 views of the lumbar spine were acquired. COMPARISON: None. FINDINGS: Bones: 5 [id number] vertebrae are present. Mild dextro scoliosis centered at the L3 level. Trac e multilevel retrolisthesis. Multilevel disc degeneration, most notably and severe at the L5-S1 level . Moderate L4-L5 and L5-S1 facet joint arthropathy. No vertebral body compression fractures. No luís picious bony lesions. Diffuse osteopenia. Soft tissues: Overlying bowel gas pattern is normal. No suspicious soft tissue calcifications. Vas cular calcifications. IMPRESSION: Multilevel spondylosis and diffuse osteopenia. Reviewed by: BEBE Atkins on 03/13/2021 5:07 PM PDT Approved by: Des Bethea MD on 03/13/2021 5:07 PM PDT Station ID: [id number]
== END 2021-03-13 16:28 | disposition home or self-care (01) ==
LOC: DI 16:27
PROVIDERS: ATTEND Family Medicine
DX: M19.012 Primary osteoarthritis, left shoulder (principal); M47.817 Spondylosis without myelopathy or radiculopathy, lumbosacral region; M41.86 Other forms of scoliosis, lumbar region; M85.88 Other specified disorders of bone density and structure, other site

== ENCOUNTER 2021-04-12 07:57 | Outpatient (CLI) | payer MEDICARE, OTHER | END 2021-04-12 07:58 | disposition home or self-care (01) | LOC: DI 07:57 | PROVIDERS: ATTEND Family Medicine | DX: R00.1 Bradycardia, unspecified (principal); M85.89 Other specified disorders of bone density and structure, multiple sites | CPT/HCPCS: 93306 ==

== ENCOUNTER 2021-04-12 10:33 | Outpatient (CLI) | payer MEDICARE, OTHER ==
--- NOTE | 2021-04-12 12:03 | DEXA Report ---
PROCEDURE: Dexa Spine and/or Hip INDICATIONS: BONE DISORDER TECHNIQUE: Dual energy x-ray absorptiometry (DXA) was performed on a Built In System. Regions measur ed are the AP Spine, femoral neck, and if needed forearm. Forearm was scanned because the spine has e xtensive densities and was not usable for calculation COMPARISON: None. FINDINGS: Lumbar Spine: Bone Mineral Density 1.492 g/cm/cm,T score 2.3, normal. This is likely falsely elevated. Left Hip: Bone Mineral Density 0.946 g/cm/cm,T score -1.1, osteopenia Left Femoral Neck: Bone Mineral Density 0.853 g/cm/cm, T score -1.7, osteopenia Left forearm (radius 33%): Bone Mineral Density 0.903 g/cm/cm, T score -0.9, normal (T score greater or equal to -1.0: NORMAL) (T score from -1.1 to -2.4: OSTEOPENIA) (T score less than or equal to -2.5 to: OSTEOPOROSIS) Impression: Osteopenia elevates the patient's 10 year fracture risk. Patients with diagnosis of osteoporosis or osteopenia should have regular bone mineral density assess ment. For those eligible for Medicare, routine testing is allowed once every 2 years. Testing frequ ency can be increased for patients who have rapidly progressing disease or for those who are receivin g medical therapy to restore bone mass. Reviewed by: Sera Lorenzo MD on 04/12/2021 12:01 PM PDT Approved by: Sera Lorenzo MD on 04/12/2021 12:01 PM PDT Station ID: [id number]
== END 2021-04-12 10:34 | disposition home or self-care (01) ==
LOC: DI 10:33
PROVIDERS: ATTEND Family Medicine
DX: M85.89 Other specified disorders of bone density and structure, multiple sites (principal)

== ENCOUNTER 2021-05-02 16:11 | Outpatient (CLI) | payer MEDICARE, OTHER | END 2021-05-02 16:12 | disposition home or self-care (01) | LOC: COV 16:11 | PROVIDERS: ATTEND Internal Medicine Cardiovascular Disease | DX: Z01.812 Encounter for preprocedural laboratory examination (principal); R00.1 Bradycardia, unspecified; Z20.822 Contact with and (suspected) exposure to COVID-19 ==

== ENCOUNTER 2021-06-13 14:51 | Outpatient (CLI) | payer MEDICARE, OTHER ==
--- NOTE | 2021-06-13 16:32 | CONSULTATION NOTE ---
Palliative Care Follow Up - Referral Referring Provider: Dr. Chu Jones Time of Visit: [id number] Referral setting: [facility] [place] Referral Reason: RLS/APL/Bradycardia - Information Sources Records reviewed: Previous records reviewed History/Review of Systems obtained from: Patient Exam limitations: Clinical condition (very MARSH[place]) - History of Present Illness Update Brief HPI Update: This is a 81-year-old gentleman is completed treatment for his APL, continues to improve from his chemotherapy related toxicities, with a excellent CBC this week. Unfortunately had a call from his significant other, regarding patient's medications, patient is here to confirm medication list and review meds given the confusion. 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 He is seeing Dr. Rolle next week, he is hoping they will recommend placing a pacemaker. Patient reports significant symptoms, he is quite variable with his pulse rate even during our visit from 30-68, he does have a log of blood pressures that shows similar over the last month. He reports with his pulse down at 30, he has to sit, he becomes very weak and fatigued, and compared to originally he does actually feel when his heart slows down and feels quite poorly. He reports he doesn' faint but looses concentration. Patient also reports experiencing chest pain in his left chest area under his clavicle that often stays persistent and localized about a fist size, lasts for about 20 minutes and occurs every 2-3 weeks. He does rate his fatigue is 6 out of 10, and it is the one symptom that is remained persistent since his treatment. He is hoping to get a pacemaker and that he will feel better with more energy without the variable heart rate. Reviewed patient's treatment of his RLS, continues to be problematic, he is currently using ropinirole 1 mg with pregabalin 200 mg at bedtime. He has long- term had sleep issues, and uses Ambien 10 mg as well. Reports sometimes this fluctuates, but is currently well controlled on his current regimen. His other presenting symptom is chronic back pain, aggravated with sitting or twisting, he often awakens with it. Reports he can usually walk it off, he is currently using Advil 400 mg in a.m. and 400 mg in the p.m. He cannot tell me why he is taking the tramadol 50 mg at bedtime, particularly since he is sleeping. He will discontinue this. 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 Support System: Patient lives with his significant other Niki, they have been together over 13 years, she herself is getting treated for cancer. Patient is quite hard of hearing, does make it difficult for communication between the 2 of them. 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 Medications/Allergies - Medications Home Medications: Ambulatory Orders Medication Instructions Recorded Confirmed Zolpidem Tartrate 10 mg PO QPM 04/16/20 06/13/21 Aspirin [Aspirin EC] 81 mg PO DAILY 04/17/20 06/13/21 Cholecalciferol (Vitamin D3) 5,000 unit PO DAILY 04/17/20 06/13/21 [Vitamin D3] Lisinopril [Zestril] 20 mg PO DAILY 04/17/20 06/13/21 [place]-3 Fatty Acids/Fish Oil 1 cap PO DAILY 04/17/20 06/13/21 [[place]-3 Fish Oil 1,000 mg Sfgl] traMADol [Ultram] 50 mg PO Q6HR PRN 04/25/20 06/13/21 polyethylene glycoL 3350 [Miralax] 17 gm PO DAILY PRN 07/06/20 06/13/21 Pregabalin [Lyrica] 200 mg PO QPM 10/05/20 06/13/21 rOPINIRole [Requip] 1 mg PO QPM 01/28/21 06/13/21 Ibuprofen [Advil] 400 mg PO BID 06/13/21 06/13/21 - Allergies Allergies/Adverse Reactions: Allergies Allergy/AdvReac Type Severity Reaction Status Date / Time chlorhexidine AdvReac Rash Verified 03/04/21 14:27 Review of Systems - Constitutional Constitutional: reports: Fatigue (remains persistent), Weight stable - Eyes Eyes: reports: Vision loss, Corrective lenses - Ears, Nose & Throat Ears, Nose & Throat: reports: Hearing loss, Hearing aids. denies: Mouth lesions - Cardiovascular Cardiovascular: reports: Decr. exercise tolerance (improving up to 3 miles walking). denies: Edema - Respiratory Respiratory: reports: SOB with exertion. denies: SOB at rest - Gastrointestinal Gastrointestinal: reports: Good appetite. denies: Constipation (managing with miralax) - Genitourinary Genitourinary: reports: Frequency - Musculoskeletal Musculoskeletal: reports: Back pain (improved; does better if consistent with exercises), Stiffness (in am), Muscle weakness (improved) - Integumentary Integumentary: reports: Dryness - Neurological Neurological: reports: General weakness, Numbness (bilateral in feet) - Psychiatric Psychiatric: reports: Anxiety. denies: Depression - Hematologic/Lymphatic Hematologic/Lymph: denies: Recurrent infections - All Other Systems All Other Systems: reports: Reviewed and negative Physical Exam - Vital Signs Pulse Rate: 56 (variable 30-68 thru visit) Respiratory Rate: 18 O2 Saturation: 98 (ra @ rest) Blood Pressure: 124/64 - Physical Exam General Appearance: positive: No acute distress, Alert, Anxious (regarding pacemaker; would like symptoms controlled) Eyes Bilateral: positive: Other (watery) ENT: positive: No signs of dehydration Neck: positive: Trachea midline Cardiovascular: positive: Bradycardia Respiratory: positive: No respiratory distress, Breath sounds nml Abdomen: positive: Non-tender, Soft, Nml bowel sounds Skin: positive: Dryness Extremities: positive: No pedal edema Neurologic/Psychiatric: positive: Oriented x3, Mood/affect nml Palliative Care - POLST Patient has POLST: No POLST Status: Full Code Pain: Location (lower back), Severity (4/10) Tiredness/Fatigue: Moderate (4-6) Drowsiness/Sedation: Moderate (4-6) Nausea: None Anorexia: None Dyspnea: None Depression: None Feelings of wellbeing/Perceived Quality of Life: Fair, Acceptable, Improved Sleep: Variable sleep pattern (gets anxious about insomnia but for most part does well) Constipation: Managed Performance Status: Reports he is still doing his exercises from PT including stretching to help with his back. He is golfing, still trying to push himself for ambulation. He is independent in his ADLs, is able to drive. He would be an ECOG 1 - Palliative Care Discussion: Patient is quite pleased with results of his CBC and appointment with oncology. He does understand he will be on ongoing monitoring, this does make him somewhat anxious as he is "waiting for the shoe to drop". At this point he is more focused on his quality of life issue's fatigue and concerned about his heart, he does see Dr. Rolle next week. Will send my note and reach out, patient with his hard of hearing and sometimes forgets to share pertinent information to try to include most of the in the note. Results - Lab Results Lab results reviewed: Yes Impression and Recommendations - Palliative Care Impression: This is a 80-year-old gentleman with APL, currently in remission. His treatment is of curative intent and is currently on surveillance. He has had some improvement with his paresthesias, RLS currently controlled, insomnia addressed with his current regimen. Patient's biggest concern at this point in time is is now symptomatic bradycardia. Palliative care is providing support for processing patient's anxiety, coordination of care and assist with symptom management. Recommendations/Counseling Done: 1. RLS. Patient is taking ropinirole 1 mg and pregabalin to 200 mg at bedtime, reports that this is currently working and does not want any further changes. Rx for pregabalin sent. 2. Medication adherence. Patient brought in medications, we reviewed, is not taking any of his prophylactic medications, remove these from the record. Reviewed supplements as patient dislikes pill burden and medication list updated. 3. Insomnia. Patient continues with Ambien 10 mg at bedtime, does find he is sleeping well. This is a huge distress for him if he is unable to sleep. Has been encouraged to consider titrating back, at this point in time wants to continue current regimen. 4. Bradycardia. Patient actually is having symptomatic bradycardia with severe fatigue, needing to sit down, some intermittent chest pain. He had seen cardio logy in [place], who did recommend pacemaker but unfortunately he would not be able to golf which was the point of his trip. He is seeing Dr. Rolle next week, is hoping they will reevaluate and offer at this time. Will send my note for support. 5. Back pain. Patient is continue with his exercises, and ambulating. Patient is recommended to stop tramadol at this point time as he is using Advil 400 mg twice daily. Verbalizes understanding. 6. Advanced care planning. Patient continues with significant anxiety regarding transitioning only to surveillance, he is doing fairly well with a good news. He is planning to go to [place] this winter and is feeling quite grateful for his current health. 60 minutes with greater than 50% of this done in counseling regarding patient's anxiety, medication adherence, pain, follow-up on concerns, anticipatory guidance provided and coordination of care
== END 2021-06-13 14:52 | disposition home or self-care (01) ==
LOC: PC 14:51
PROVIDERS: ATTEND Nurse Practitioner Adult Health
DX: Z51.5 Encounter for palliative care (principal); C92.41 Acute promyelocytic leukemia, in remission; G25.81 Restless legs syndrome; G47.09 Other insomnia; I44.1 Atrioventricular block, second degree; R00.1 Bradycardia, unspecified; M54.9 Dorsalgia, unspecified
CPT/HCPCS: 99215

== ENCOUNTER 2021-07-24 14:54 | Outpatient (CLI) | payer MEDICARE, OTHER ==
--- NOTE | 2021-07-24 18:38 | Ultrasound Report ---
PROCEDURE: Carotid Doppler Complete INDICATIONS: SUBCLAVIAN ARTERY EVALUATION TECHNIQUE: Color and pulse Doppler interrogation was performed of both carotid systems, with image documentation and velocity measurements. COMPARISON: None. FINDINGS: Right side: Brachial blood pressure: 141/64 mm Hg. Common carotid artery peak systolic velocity: 91.6 cm/sec. Internal carotid artery peak systolic velocity: 50.6 cm/sec. Internal carotid artery end diastolic velocity: 8.9 cm/sec. External carotid artery peak systolic velocity: 75.2 cm/sec. ICA/CCA peak systolic ratio: 0.2 . Bradford scale imaging description: Scattered atherosclerotic plaques are noted involving distal common carotid artery and proximal internal and external carotid arteries. Percent internal carotid artery stenosis: Less than 50% . Vertebral artery: Flow direction is antegrade. Left side: Brachial blood pressure: 136/52 mm Hg. Common carotid artery peak systolic velocity: 89.1 cm/sec. Internal carotid artery peak systolic velocity: 64.1 cm/sec. Internal carotid artery end diastolic velocity: 11.7 cm/sec. External carotid artery peak systolic velocity: 66.9 cm/sec. ICA/CCA peak systolic ratio: 0.7 . Bradford scale imaging description: Moderate amount of atherosclerotic plaques are seen scattered in dis [place] common carotid artery and proximal internal and external carotid arteries. Percent internal carotid artery stenosis: Less than 50% stenosis . Vertebral artery: Flow direction is antegrade. IMPRESSION: Moderate atherosclerotic plaques scattered in bilateral distal common carotid arteries and bilateral proximal internal and external carotid arteries with less than 50% stenosis. The estimate of stenosis included in the report of the imaging study was calculated using the NASCET method Reviewed by: Stevenson Shepard MD on 07/24/2021 6:37 PM PDT Approved by: Stevenson Shepard MD on 07/24/2021 6:37 PM PDT Station ID: [id number]
== END 2021-07-24 14:55 | disposition home or self-care (01) ==
LOC: DI 14:54
PROVIDERS: ATTEND Family Medicine
DX: I65.23 Occlusion and stenosis of bilateral carotid arteries (principal)
CPT/HCPCS: 93880

== ENCOUNTER 2021-07-30 14:49 | Emergency (ER) | payer MEDICARE, OTHER ==
--- NOTE | 2021-07-30 15:06 | ED Physician Documentation ---
PD HPI LOWER EXT INJURY - Stated complaint Stated Complaint: RT LEG ISSUE - Chief complaint Chief Complaint: Ext Problem - History obtained from History obtained from: Patient - History of Present Illness PD HPI LOW EXT INJURY LOCATION: Right, Lower leg, Calf Type of injury: No: Fall, Twist, Blunt / blow Timing - onset: How many days ago (2-3 days of swelling right lower leg and calf. Mild aching but not pain per se. Has some aching/pressure feeling in right upper thigh.) Timing - details: Gradual onset, Still present Associated symptoms: Swelling. No: Weakness, Numbness Contributing factors: No: Anticoagulated, Prior ortho surgery Similar symptoms before: Has not had sx before Recently seen: Clinic (went to [facility] and referred to the ER for U/S evaluation.) Review of Systems Constitutional: denies: Fever Nose: denies: Rhinorrhea / runny nose, Congestion Throat: denies: Sore throat Respiratory: denies: Cough GI: denies: Nausea, Vomiting, Diarrhea Skin: denies: Rash, Lesions, Abrasion (s), Laceration (s) Neurologic: denies: Focal weakness, Numbness PD PAST MEDICAL HISTORY - Past Medical History Cardiovascular: Hypertension, Arrhythmia, Other Respiratory: None (quit in 1985) Neuro: None Endocrine/Autoimmune: None GI: None, Colon polyps : Retention HEENT: Chronic hearing loss, Chronic hearing loss Psych: None Musculoskeletal: None, Chronic back pain Derm: None - Past Surgical History Past Surgical History: Yes General: Colonoscopy Ortho: Spine surgery Derm: Skin cancer surgery - Present Medications Home Medications: Ambulatory Orders Medication Instructions Recorded Confirmed Zolpidem Tartrate 10 mg PO QPM 04/16/20 06/13/21 Aspirin [Aspirin EC] 81 mg PO DAILY 04/17/20 06/13/21 Cholecalciferol (Vitamin D3) 5,000 unit PO DAILY 04/17/20 06/13/21 [Vitamin D3] Lisinopril [Zestril] 20 mg PO DAILY 04/17/20 06/13/21 [place]-3 Fatty Acids/Fish Oil 1 cap PO DAILY 04/17/20 06/13/21 [[place]-3 Fish Oil 1,000 mg Sfgl] traMADol [Ultram] 50 mg PO Q6HR PRN 04/25/20 06/13/21 polyethylene glycoL 3350 [Miralax] 17 gm PO DAILY PRN 07/06/20 06/13/21 Pregabalin [Lyrica] 200 mg PO QPM 10/05/20 06/13/21 rOPINIRole [Requip] 1 mg PO QPM 01/28/21 06/13/21 Ibuprofen [Advil] 400 mg PO BID 06/13/21 06/13/21 - Allergies Allergies/Adverse Reactions: Allergies Allergy/AdvReac Type Severity Reaction Status Date / Time chlorhexidine AdvReac Rash Verified 03/04/21 14:27 - Social History Does the pt smoke?: No Smoking Status: Former smoker Does the pt drink ETOH?: Yes Does the pt have substance abuse?: No - Immunizations Immunizations are current?: No - POLST Patient has POLST: No PD ED PE NORMAL - Vitals Vital signs reviewed: Yes - General General: Alert and oriented X 3, No acute distress, Well developed/nourished - Back Back: No CVA TTP, No spinal TTP - Derm Derm: Normal color, Warm and dry - Extremities Extremities: Other (1+ edema in right lower leg. Not tender in callf per se. Normal color in toes. Good pulses. Medial thigh not tender. ) - Neuro Neuro: Alert and oriented X 3, No motor deficit, No sensory deficit, Normal speech Results - Vitals Vitals: Vital Signs - 24 hr 07/30/21 07/30/21 14:58 16:20 Temperature 36.3 C L 36.5 C Heart Rate 67 66 Respiratory 14 16 Rate Blood Pressure 175/85 H 150/80 H O2 Saturation 98 98 Oxygen O2 Source Room air - Rads (name of study) duplex U/S right lower ext Radiology: Prelim report reviewed, See rad report, Other (U/S tech says no DVTs.) PD MEDICAL DECISION MAKING - ED course Complexity details: reviewed results (no DVT), considered differential (can get U/S to eval for DVT. COnsider venous congestion and edema or lymphatic flow issue. ), d/w patient Departure - Departure Disposition: 01 Home, Self Care Clinical Impression: Right leg swelling Clinical Impression: (Ruled Out): DVT (deep venous thrombosis) Condition: Stable Record reviewed to determine appropriate education?: Yes Instructions: ED Leg Swelling Unilateral Comments: Your ultrasound does not show any blood clots. Your leg has swelling for some reason so I would suggest that you elevate it periodically and watch the way that you are sitting that there is no pressure behind the knee or crossing your legs to obstruct the return lymphatic flow etc. Regular activity is good to reduce swelling as well. Consider loose compressive sock when you are up and around during the day. The accuracy of ultrasound for blood clots is pretty darn good in the range of 98%. If you have persistent or increasing swelling or develop pain in the leg, follow-up with your primary care for potential repeat ultrasound in a week or 2 if worsening. Discharge Date/Time: 07/30/21 16:20
--- NOTE | 2021-07-30 16:20 | Ultrasound Report ---
PROCEDURE: Duplex Ext Veins Right INDICATIONS: right leg swelling 3 days TECHNIQUE: Real-time imaging, as well as color and pulse Doppler interrogation, were performed of the lower extr emity deep veins from the inguinal ligament to the popliteal fossa. COMPARISON: None. FINDINGS: The deep veins are normally compressible, and free of intraluminal thrombus. Color and pu lse Doppler demonstrate normal phasic intraluminal flow. There is normal augmentation response to di stal compression maneuver. IMPRESSION: No evidence of deep vein thrombosis involving the right lower extremity. Reviewed by: Yana Allred MD, PhD on 07/30/2021 4:18 PM PDT Approved by: Yana Allred MD, PhD on 07/30/2021 4:18 PM PDT Station ID: [id number]
[2021-07-30 16:22] VITALS: BP 150/80
== END 2021-07-30 16:20 | disposition home or self-care (01) ==
LOC: ED 14:49
DX: R22.41 Localized swelling, mass and lump, right lower limb (principal); I10 Essential (primary) hypertension; Z87.891 Personal history of nicotine dependence
CPT/HCPCS: 99282; 99284

== ENCOUNTER 2021-10-01 09:03 | Outpatient (CLI) | payer MEDICARE, OTHER ==
[2021-10-01 09:46] LABS: ESTIMATED AVERAGE GLUCOSE 114 mg/dL (70-100); HEMOGLOBIN A1c% 5.6 % (4.27-6.07)
[2021-10-01 10:02] LABS: BASOPHILS # (AUTO) 0.1 10^3/uL (0.0-0.1); BASOPHILS % (AUTO) 0.7 %; EOSINOPHILS # (AUTO) 0.1 10^3/uL (0.0-0.7); EOSINOPHILS % (AUTO) 1.3 %; HCT - HEMATOCRIT 42.6 % (42.0-52.0); HGB - HEMOGLOBIN 14.4 g/dL (14.0-18.0); LYMPHOCYTES % (AUTO) 13.4 %; MEAN CORPUSCULAR HEMOGLOBIN 32.1 pg (27.0-31.0); MEAN CORPUSCULAR HGB CONC 33.8 g/dL (32.0-36.0); MEAN CORPUSCULAR VOLUME 95.1 fL (80.0-94.0); MEAN PLATELET VOLUME 11.2 fL (7.4-11.4); MONOCYTES # (AUTO) 0.5 10^3/uL (0.0-1.0); MONOCYTES % (AUTO) 6.9 %; NEUTROPHILS # (AUTO) 5.9 10^3/uL (1.5-6.6); NEUTROPHILS % (AUTO) 77.4 %; PLT - PLATELET COUNT 140 10^3/uL (130-450); RED BLOOD COUNT 4.48 10^6/uL (4.70-6.10); RED CELL DISTRIBUTION WIDTH 13.4 % (12.0-15.0); WHITE BLOOD COUNT 7.6 x10^3/uL (4.8-10.8)
[2021-10-01 10:03] LABS: ALBUMIN 3.7 g/dL (3.2-5.5); ALBUMIN/GLOBULIN RATIO 1.3 (1.0-2.2); ALKALINE PHOSPHATASE 54 IU/L (42-121); ALT ALANINE AMINOTRANSFERASE 16 IU/L (10-60); AST ASPARTATE AMINOTRANSFERASE 14 IU/L (10-42); BUN - BLOOD UREA NITROGEN 29 mg/dL (6-20); CALCIUM 9.9 mg/dL (8.5-10.3); CARBON DIOXIDE - CO2 21 mmol/L (21-32); CHLORIDE 104 mmol/L (101-111); CHOL/HDL RATIO 5.1 (<5.0); CHOLESTEROL 123 mg/dL; GFR - MDRD 72 (>89); GLUCOSE 129 mg/dL (70-100); HDL CHOLESTEROL 24 mg/dL; LDL CHOLESTEROL,CALCULATED 77 mg/dL; LDL/HDL RATIO 3.2 (<3.6); POTASSIUM 4.4 mmol/L (3.5-5.0); SODIUM 132 mmol/L (135-145); TOTAL PROTEIN 6.5 g/dL (6.7-8.2); TRIGLYCERIDES 112 mg/dL; VLDL CHOLESTEROL 22 mg/dL
== END 2021-10-01 09:04 | disposition home or self-care (01) ==
LOC: LAB 09:03
PROVIDERS: ATTEND Family Medicine
DX: I10 Essential (primary) hypertension (principal); E11.9 Type 2 diabetes mellitus without complications
CPT/HCPCS: 36415; 80053; 80061; 82043; 82570; 83036; 83721; 85025

== ENCOUNTER 2022-03-03 15:07 | Outpatient (CLI) | payer MEDICARE, OTHER ==
--- NOTE | 2022-03-03 19:55 | XRAY Report ---
PROCEDURE: Chest 2 View X-Ray INDICATIONS: SOB TECHNIQUE: 2 view(s) of the chest. COMPARISON: None. FINDINGS: Surgical changes and devices: None. Lungs and pleura: No pleural effusions or pneumothorax. Lungs are clear. Mediastinum: Mediastinal contours are normal. Heart size is normal. Atherosclerotic vascular calci fication noted in the aortic arch. Bones and chest wall: No suspicious bony abnormalities. Soft tissues appear unremarkable. IMPRESSION: No acute cardiopulmonary findings Reviewed by: Clint Marrero MD on 03/03/2022 6:54 PM AKDT Approved by: Clint Marrero MD on 03/03/2022 6:54 PM AKDT Station ID: [id number]
== END 2022-03-03 23:59 | disposition home or self-care (01) ==
LOC: DI.N 15:07
PROVIDERS: ATTEND Family Medicine
DX: R06.2 Wheezing (principal)

== ENCOUNTER 2022-03-06 08:10 | Outpatient (CLI) | payer MEDICARE, OTHER ==
[2022-03-06 08:30] LABS: BASOPHILS # (AUTO) 0.1 10^3/uL (0.0-0.1); BASOPHILS % (AUTO) 0.5 %; EOSINOPHILS # (AUTO) 0.1 10^3/uL (0.0-0.7); EOSINOPHILS % (AUTO) 0.4 %; HCT - HEMATOCRIT 45.8 % (42.0-52.0); HGB - HEMOGLOBIN 14.8 g/dL (14.0-18.0); LYMPHOCYTES # (AUTO) 3.5 10^3/uL (1.5-3.5); LYMPHOCYTES % (AUTO) 25.3 %; MEAN CORPUSCULAR HGB CONC 32.3 g/dL (32.0-36.0); MEAN CORPUSCULAR VOLUME 102.2 fL (80.0-94.0); MEAN PLATELET VOLUME 11.1 fL (7.4-11.4); NEUTROPHILS # (AUTO) 9.1 10^3/uL (1.5-6.6); NEUTROPHILS % (AUTO) 65.5 %; PLT - PLATELET COUNT 144 10^3/uL (130-450); RED BLOOD COUNT 4.48 10^6/uL (4.70-6.10); RED CELL DISTRIBUTION WIDTH 13.6 % (12.0-15.0); WHITE BLOOD COUNT 13.9 x10^3/uL (4.8-10.8)
[2022-03-06 09:02] LABS: ALBUMIN 3.9 g/dL (3.2-5.5); ALBUMIN/GLOBULIN RATIO 1.6 (1.0-2.2); ALKALINE PHOSPHATASE 33 IU/L (42-121); ALT ALANINE AMINOTRANSFERASE 22 IU/L (10-60); AST ASPARTATE AMINOTRANSFERASE 17 IU/L (10-42); BILIRUBIN,TOTAL 0.8 mg/dL (0.2-1.0); BUN - BLOOD UREA NITROGEN 32 mg/dL (6-20); CALCIUM 9.9 mg/dL (8.5-10.3); CARBON DIOXIDE - CO2 24 mmol/L (21-32); CHLORIDE 103 mmol/L (101-111); CHOLESTEROL 152 mg/dL; CREATININE 0.9 mg/dL (0.6-1.2); GFR - MDRD 81 (>89); GLUCOSE 110 mg/dL (70-100); HDL CHOLESTEROL 38 mg/dL; LDL CHOLESTEROL,CALCULATED 80 mg/dL; LDL/HDL RATIO 2.1 (<3.6); POTASSIUM 4.1 mmol/L (3.5-5.0); SODIUM 135 mmol/L (135-145); TOTAL PROTEIN 6.3 g/dL (6.7-8.2); TRIGLYCERIDES 169 mg/dL; VLDL CHOLESTEROL 34 mg/dL
[2022-03-06 12:18] LABS: ESTIMATED AVERAGE GLUCOSE 123 mg/dL (70-100); HEMOGLOBIN A1c% 5.9 % (4.27-6.07)
== END 2022-03-06 08:11 | disposition home or self-care (01) ==
LOC: LAB 08:10
PROVIDERS: ATTEND Family Medicine
DX: E11.9 Type 2 diabetes mellitus without complications (principal)
CPT/HCPCS: 36415; 80053; 80061; 83036; 83721; 85025

== ENCOUNTER 2022-10-06 09:11 | Emergency (ER) | payer MEDICARE, OTHER ==
[2022-10-06] MEDS ORDERED: KETOROLAC 30 MG/ML VIAL IM STA (12:14)
--- NOTE | 2022-10-06 12:36 | ED Physician Documentation ---
History of Present Illness - Stated complaint Stated Complaint: BACK PAIN - Chief complaint Chief Complaint: Back Pain - History obtained from History obtained from: Patient, Family - History of Present Illness Timing: How many weeks ago (3) Pain level max: 6 Pain level now: 4 - Additonal information Additional information: Patient is an 82-year-old male who presents to the emergency department complaining of bilateral hip pain for the past 3 to 4 weeks. He states he saw an orthopedist but was told that he would need an MRI and x-rays. He states he obtained the MRI in [place] but does not yet know the results. He states he was taking Aleve which was helping his pain but stopped taking this. Worse with movement, better with rest. No numbness or tingling. 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 No vomiting. No diarrhea. No abdominal pain. No urinary symptoms. No loss of bowel or bladder control. No falls. No injuries. Review of Systems Constitutional: denies: Fever, Chills Respiratory: denies: Cough GI: denies: Vomiting, Diarrhea : denies: Dysuria Skin: denies: Rash Musculoskeletal: denies: Neck pain, Back pain Neurologic: denies: Headache PD PAST MEDICAL HISTORY - Past Medical History Cardiovascular: Hypertension, Arrhythmia, Other Respiratory: None Neuro: None Endocrine/Autoimmune: None GI: None, Colon polyps : Retention HEENT: Chronic hearing loss, Chronic hearing loss Psych: None Musculoskeletal: None, Chronic back pain Derm: None Other Past Medical History: leukemia - Past Surgical History Past Surgical History: Yes General: Colonoscopy Ortho: Spine surgery Derm: Skin cancer surgery - Present Medications Home Medications: Ambulatory Orders Medication Instructions Recorded Confirmed Aspirin [Aspirin EC] 81 mg PO DAILY 04/17/20 10/06/22 Cholecalciferol (Vitamin D3) 5,000 unit PO DAILY 04/17/20 10/06/22 [Vitamin D3] Lisinopril [Zestril] 20 mg PO BID 04/17/20 10/06/22 [place]-3 Fatty Acids/Fish Oil 1 cap PO DAILY 04/17/20 10/06/22 [[place]-3 Fish Oil 1,000 mg Sfgl] Pregabalin [Lyrica] 200 mg PO QPM 10/05/20 10/06/22 rOPINIRole [Requip] 3 mg PO QPM 01/28/21 10/06/22 Spironolactone [Aldactone] 25 mg PO DAILY 10/07/21 10/06/22 Naproxen Sodium [Aleve] 220 mg PO PRN PRN 03/11/22 10/06/22 amLODIPine [Norvasc] 5 mg PO DAILY #90 tablet 03/11/22 10/06/22 predniSONE [Deltasone] 20 mg PO BID 03/11/22 10/06/22 Meloxicam [Mobic] 7.5 mg PO BID PRN #20 tablet 10/06/22 - Allergies Allergies/Adverse Reactions: Allergies Allergy/AdvReac Type Severity Reaction Status Date / Time chlorhexidine AdvReac Rash Verified 10/06/22 09:29 - Social History Does the pt smoke?: No Smoking Status: Never smoker Does the pt drink ETOH?: Yes Does the pt have substance abuse?: No - Immunizations Immunizations are current?: No - POLST Patient has POLST: No PD ED PE NORMAL - Vitals Vital signs reviewed: Yes - General General: Alert and oriented X 3, No acute distress - HEENT HEENT: Moist mucous membranes - Neck Neck: Supple, no meningeal sign - Cardiac Cardiac: RRR, Strong equal pulses - Respiratory Respiratory: No respiratory distress, Clear bilaterally - Abdomen Abdomen: Soft, Non tender, Non distended - Back Back: No spinal TTP (No midline tenderness to palpation or percussion. No step- off or deformity) - Derm Derm: Warm and dry - Extremities Extremities: Other (Full range of motion of both hips without any pain on passive range of motion. No pain with internal and external rotation. No deformity. 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 Normal great toe extension bilaterally. no saddle anesthesia) Eye Opening: Spontaneous Motor: Obeys Commands Verbal: Oriented GCS Score: 15 - Psych Psych: Normal mood, Normal affect Results - Vitals Vitals: Vital Signs - 24 hr 10/06/22 10/06/22 10/06/22 09:25 11:29 13:00 Temperature 36.1 C L Heart Rate 61 57 L 55 L Respiratory 20 16 16 Rate Blood Pressure 159/85 H 139/74 H 134/89 H O2 Saturation 99 100 98 Oxygen O2 Source Room air - Labs Labs: Laboratory Tests 10/06/22 10/06/22 13:12 13:12 WBC 9.2 RBC 5.27 Hgb 16.9 Hct 51.2 MCV 97.2 H MCH 32.1 H MCHC 33.0 RDW 13.0 Plt Count 149 MPV 10.7 Neut # (Auto) 6.2 Lymph # (Auto) 2.3 Evangeline # (Auto) 0.5 Eos # (Auto) 0.1 Baso # (Auto) 0.1 Absolute Nucleated RBC 0.00 Nucleated RBC % 0.0 Sodium 135 Potassium 5.3 H Chloride 100 L Carbon Dioxide 28 Anion Gap 7.0 BUN 23 H Creatinine 0.7 Estimated GFR (MDRD) 109 Glucose 116 H Calcium 10.7 H Total Bilirubin 1.2 H AST 20 ALT 25 Alkaline Phosphatase 43 Total Protein 7.4 Albumin 4.4 Globulin 3.0 Albumin/Globulin Ratio 1.5 - Rads (name of study) Bilateral hip x-ray Radiology: Final report received, See rad report PD Medical Decision Making - ED course Complexity details: reviewed results, re-evaluated patient, considered differential, d/w patient, d/w family ED course: 82-year-old male presents to the emergency department with bilateral hip pain ongoing for the past several weeks. He has seen an orthopedist and apparently had a lumbar spine MRI at the [facility], [place]. We attempted for several hours to obtain chart records or MRI results. None are available today. Pain resolved with Toradol. Osteoarthritis on x-ray. Will prescribe anti-inflammatories for home. He is not on blood thinners. Does not have any injury to his kidneys and no history of GI bleed. Patient ambulating without difficulty. We will have him follow-up with his doctor for further care. Patient counseled regarding signs and symptoms for which I believe and urgent re-evaluation would be necessary. Patient with good understanding of and agreement to plan and is comfortable going home at this time This document was made in part using voice recognition software. While efforts are made to proofread this document, sound alike and grammatical errors may occur. Departure - Departure Disposition: 01 Home, Self Care Clinical Impression: Osteoarthritis, hip, bilateral Qualifiers: Osteoarthritis type: unspecified Qualified Code(s): M16.0 - Bilateral primary osteoarthritis of hip Condition: Good Instructions: ED Degenerative Joint Disease Follow-Up: Corey Albright MD [Primary Care Provider] - Within 1 week Prescriptions: Meloxicam [Mobic] 7.5 mg PO BID PRN #20 tablet PRN Reason: Pain Comments: Please follow-up with your doctor for further care. As we discussed we are unable to obtain the results of your MRI from [place] today. Your pain did improve with an anti-inflammatory medication here. We will prescribe an anti- inflammatory medication for home for you. Please make sure you are drinking plenty of fluids as well as you do appear mildly dehydrated on your laboratory testing. You have mild increases in your calcium and potassium. These levels should both be rechecked with your doctor within 3 to 4 days. Your prescriptions were sent to [facility] in [place] Discharge Date/Time: 10/06/22 13:49
--- NOTE | 2022-10-06 12:55 | XRAY Report ---
PROCEDURE: Hips 2V BILAT INDICATIONS: B hip pain TECHNIQUE: AP view of the pelvis and frog-leg lateral views of the bilateral hips were acquired. COMPARISON: None FINDINGS: Bones: No fractures or dislocations. No suspicious bony lesions. The visualized pelvic ring appear s intact. There is mild right and mild to moderate left hip degenerative arthritis. Soft tissues: No suspicious soft tissue calcifications or masses. IMPRESSION: Bilateral hip degenerative arthritis. No evidence acute bony abnormality of the pelvis and bilateral hips. If clinical suspicion and/or symptoms persist, further assessment with repeat plain films or advanced imaging (e.g., CT, MRI, or bone scan) may be helpful for further assessment. Reviewed by: Adrian Carney MD on 10/06/2022 12:54 PM PST Approved by: Adrian Carney MD on 10/06/2022 12:54 PM PST Station ID: [id number]
[2022-10-06 13:17] LABS: BASOPHILS # (AUTO) 0.1 10^3/uL (0.0-0.1); BASOPHILS % (AUTO) 0.5 %; EOSINOPHILS # (AUTO) 0.1 10^3/uL (0.0-0.7); EOSINOPHILS % (AUTO) 0.9 %; HCT - HEMATOCRIT 51.2 % (42.0-52.0); HGB - HEMOGLOBIN 16.9 g/dL (14.0-18.0); LYMPHOCYTES # (AUTO) 2.3 10^3/uL (1.5-3.5); LYMPHOCYTES % (AUTO) 24.7 %; MEAN CORPUSCULAR HEMOGLOBIN 32.1 pg (27.0-31.0); MEAN CORPUSCULAR VOLUME 97.2 fL (80.0-94.0); MEAN PLATELET VOLUME 10.7 fL (7.4-11.4); MONOCYTES # (AUTO) 0.5 10^3/uL (0.0-1.0); MONOCYTES % (AUTO) 5.9 %; NEUTROPHILS # (AUTO) 6.2 10^3/uL (1.5-6.6); NEUTROPHILS % (AUTO) 67.2 %; PLT - PLATELET COUNT 149 10^3/uL (130-450); RED BLOOD COUNT 5.27 10^6/uL (4.70-6.10); WHITE BLOOD COUNT 9.2 x10^3/uL (4.8-10.8)
[2022-10-06 13:31] LABS: ALBUMIN 4.4 g/dL (3.2-5.5); ALBUMIN/GLOBULIN RATIO 1.5 (1.0-2.2); BILIRUBIN,TOTAL 1.2 mg/dL (0.2-1.0); CALCIUM 10.7 mg/dL (8.5-10.3); CREATININE 0.7 mg/dL (0.6-1.2); POTASSIUM 5.3 mmol/L (3.5-5.0); TOTAL PROTEIN 7.4 g/dL (6.7-8.2)
[2022-10-06 13:38] VITALS: BP 134/89
== END 2022-10-06 13:49 | disposition home or self-care (01) ==
LOC: ED 09:11
DX: M16.0 Bilateral primary osteoarthritis of hip (principal); E87.5 Hyperkalemia; E83.52 Hypercalcemia
CPT/HCPCS: 36415; 80053; 85025; 96372; 99282; 99284

== ENCOUNTER 2023-03-25 09:27 | Outpatient (CLI) | payer MEDICARE, OTHER ==
[2023-03-25 09:54] LABS: BASOPHILS # (AUTO) 0.1 10^3/uL (0.0-0.1); BASOPHILS % (AUTO) 0.8 %; EOSINOPHILS # (AUTO) 0.1 10^3/uL (0.0-0.7); EOSINOPHILS % (AUTO) 1.3 %; HCT - HEMATOCRIT 47.6 % (42.0-52.0); HGB - HEMOGLOBIN 15.6 g/dL (14.0-18.0); LYMPHOCYTES # (AUTO) 1.8 10^3/uL (1.5-3.5); LYMPHOCYTES % (AUTO) 27.8 %; MEAN CORPUSCULAR HEMOGLOBIN 32.5 pg (27.0-31.0); MEAN CORPUSCULAR HGB CONC 32.8 g/dL (32.0-36.0); MEAN CORPUSCULAR VOLUME 99.2 fL (80.0-94.0); MEAN PLATELET VOLUME 10.7 fL (7.4-11.4); MONOCYTES # (AUTO) 0.5 10^3/uL (0.0-1.0); MONOCYTES % (AUTO) 7.4 %; NEUTROPHILS % (AUTO) 62.2 %; PLT - PLATELET COUNT 138 10^3/uL (130-450); RED CELL DISTRIBUTION WIDTH 13.1 % (12.0-15.0); WHITE BLOOD COUNT 6.3 x10^3/uL (4.8-10.8)
[2023-03-25 10:10] LABS: ALBUMIN 3.8 g/dL (3.2-5.5); ALBUMIN/GLOBULIN RATIO 1.3 (1.0-2.2); ALKALINE PHOSPHATASE 40 IU/L (42-121); ALT ALANINE AMINOTRANSFERASE 25 IU/L (10-60); AST ASPARTATE AMINOTRANSFERASE 23 IU/L (10-42); BILIRUBIN,TOTAL 0.8 mg/dL (0.2-1.0); BUN - BLOOD UREA NITROGEN 23 mg/dL (6-20); CALCIUM 10.1 mg/dL (8.5-10.3); CARBON DIOXIDE - CO2 27 mmol/L (21-32); CHLORIDE 104 mmol/L (101-111); CHOL/HDL RATIO 5.7 (<5.0); CHOLESTEROL 159 mg/dL; CREATININE 0.8 mg/dL (0.6-1.2); GFR - MDRD 93 (>89); GLUCOSE 122 mg/dL (70-100); HDL CHOLESTEROL 28 mg/dL; LDL CHOLESTEROL,CALCULATED 89 mg/dL; LDL/HDL RATIO 3.2 (<3.6); POTASSIUM 4.3 mmol/L (3.5-5.0); SODIUM 136 mmol/L (135-145); TOTAL PROTEIN 6.7 g/dL (6.7-8.2); TRIGLYCERIDES 209 mg/dL; VLDL CHOLESTEROL 42 mg/dL
[2023-03-25 10:19] LABS: ESTIMATED AVERAGE GLUCOSE 120 mg/dL (70-100); HEMOGLOBIN A1c% 5.8 % (4.27-6.07)
[2023-03-25 10:21] LABS: THYROID STIMULATING HORMONE 1.93 uIU/mL (0.34-5.60)
== END 2023-03-25 09:28 | disposition home or self-care (01) ==
LOC: LAB 09:27
PROVIDERS: ATTEND Internal Medicine
DX: E78.5 Hyperlipidemia, unspecified (principal); R73.03 Prediabetes; E55.9 Vitamin D deficiency, unspecified; E53.8 Deficiency of other specified B group vitamins; C92.40 Acute promyelocytic leukemia, not having achieved remission; I44.1 Atrioventricular block, second degree
CPT/HCPCS: 36415; 80053; 80061; 82306; 82607; 83036; 83615; 83721; 84443; 85025

== ENCOUNTER 2023-04-23 11:44 | Outpatient (CLI) | payer MEDICARE, OTHER ==
--- NOTE | 2023-04-23 16:34 | Ultrasound Report ---
PROCEDURE: Aorta Screening INDICATIONS: HX OF TOBACCO USE TECHNIQUE: Real time scanning was performed of the aorta and iliac arteries, with image documentatio n. COMPARISON: None. FINDINGS: Aorta: Proximal aortic diameter measures 2.7 cm. Mid-aorta measures 2.6 cm. Distal aortic diameter is 2.6 cm. Iliac arteries: Right common iliac artery measures 1.7 cm. Left common iliac artery measures 1.3 cm . IMPRESSION: No evidence of aortoiliac aneurysm. Reviewed by: Fareed Hadley MD on 04/23/2023 4:32 PM PDT Approved by: Fareed Hadley MD on 04/23/2023 4:32 PM PDT Station ID: [id number]
== END 2023-04-23 11:45 | disposition home or self-care (01) ==
LOC: DI 11:44
PROVIDERS: ATTEND Internal Medicine
DX: Z13.6 Encounter for screening for cardiovascular disorders (principal); Z87.891 Personal history of nicotine dependence

== ENCOUNTER 2023-05-19 13:48 | Outpatient (CLI) | payer MEDICARE, OTHER ==
[2023-05-19 14:21] LABS: BASOPHILS % (AUTO) 0.5 %; EOSINOPHILS # (AUTO) 0.1 10^3/uL (0.0-0.7); EOSINOPHILS % (AUTO) 1.6 %; HCT - HEMATOCRIT 48.5 % (42.0-52.0); HGB - HEMOGLOBIN 15.8 g/dL (14.0-18.0); LYMPHOCYTES # (AUTO) 1.8 10^3/uL (1.5-3.5); LYMPHOCYTES % (AUTO) 22.7 %; MEAN CORPUSCULAR HGB CONC 32.6 g/dL (32.0-36.0); MEAN CORPUSCULAR VOLUME 98.4 fL (80.0-94.0); MEAN PLATELET VOLUME 10.7 fL (7.4-11.4); MONOCYTES # (AUTO) 0.6 10^3/uL (0.0-1.0); MONOCYTES % (AUTO) 7.4 %; NEUTROPHILS # (AUTO) 5.4 10^3/uL (1.5-6.6); NEUTROPHILS % (AUTO) 67.3 %; PLT - PLATELET COUNT 143 10^3/uL (130-450); RED BLOOD COUNT 4.93 10^6/uL (4.70-6.10); RED CELL DISTRIBUTION WIDTH 12.8 % (12.0-15.0)
[2023-05-19 14:34] LABS: CALCIUM 10.5 mg/dL (8.5-10.3); CREATININE 0.8 mg/dL (0.6-1.3); POTASSIUM 4.7 mmol/L (3.5-4.5)
[2023-05-19 15:53] LABS: INR 1.1 (0.8-1.2); PT - PROTHROMBIN TIME 12.2 secs (9.9-12.6)
== END 2023-05-19 13:49 | disposition home or self-care (01) ==
LOC: LAB 13:48
PROVIDERS: ATTEND Internal Medicine
DX: I44.1 Atrioventricular block, second degree (principal); R94.39 Abnormal result of other cardiovascular function study; E55.9 Vitamin D deficiency, unspecified
CPT/HCPCS: 36415; 80048; 82306; 85025; 85610

== ENCOUNTER 2023-06-11 11:53 | Outpatient (CLI) | payer MEDICARE, OTHER ==
[2023-06-11 12:34] LABS: BASOPHILS # (AUTO) 0.1 10^3/uL (0.0-0.1); BASOPHILS % (AUTO) 0.8 %; EOSINOPHILS # (AUTO) 0.1 10^3/uL (0.0-0.7); EOSINOPHILS % (AUTO) 1.3 %; HCT - HEMATOCRIT 45.9 % (42.0-52.0); HGB - HEMOGLOBIN 15.4 g/dL (14.0-18.0); LYMPHOCYTES # (AUTO) 1.8 10^3/uL (1.5-3.5); LYMPHOCYTES % (AUTO) 23.7 %; MEAN CORPUSCULAR HEMOGLOBIN 32.7 pg (27.0-31.0); MEAN CORPUSCULAR HGB CONC 33.6 g/dL (32.0-36.0); MEAN CORPUSCULAR VOLUME 97.5 fL (80.0-94.0); MEAN PLATELET VOLUME 11.2 fL (7.4-11.4); MONOCYTES # (AUTO) 0.6 10^3/uL (0.0-1.0); MONOCYTES % (AUTO) 7.2 %; NEUTROPHILS # (AUTO) 5.1 10^3/uL (1.5-6.6); NEUTROPHILS % (AUTO) 66.5 %; PLT - PLATELET COUNT 132 10^3/uL (130-450); RED BLOOD COUNT 4.71 10^6/uL (4.70-6.10); WHITE BLOOD COUNT 7.7 x10^3/uL (4.8-10.8)
[2023-06-11 13:02] LABS: INR 1.1 (0.8-1.2)
[2023-06-11 13:10] LABS: CALCIUM 10.8 mg/dL (8.5-10.3); CREATININE 0.8 mg/dL (0.6-1.3); POTASSIUM 4.5 mmol/L (3.5-4.5)
== END 2023-06-11 11:54 | disposition home or self-care (01) ==
LOC: LAB 11:53
PROVIDERS: ATTEND Internal Medicine
DX: R00.1 Bradycardia, unspecified (principal)
CPT/HCPCS: 36415; 80048; 85025; 85610

== ENCOUNTER 2023-06-20 20:11 | Emergency (ER) | payer MEDICARE, OTHER ==
[2023-06-20 20:25] VITALS: BP 163/69; O2SAT 98
--- NOTE | 2023-06-20 21:47 | ED Physician Documentation ---
PD HPI HEAD INJURY - Stated complaint Stated Complaint: HIT HEAD - Chief complaint Chief Complaint: Heent - History obtained from History obtained from: Patient, Family (spouse (in ED at bedside)) - Additional information Additional information: HPI from patient. Patient spouse is at bedside and she also contributes to HPI. At approximately 6 PM tonight, patient [place] when he slipped and fell backwards, striking the back of his head against some rocks. There were several other people quite near him, and they rushed to his aid. By all reports, the patient had no LOC, and the patient himself says he did not lose consciousness. Patient denies headache, denies neck pain. He has a small, focal area of swelling of his occiput, which she says is minimally tender to the touch. Denies numbness, weakness, nausea/vomiting, changes in vision. He has not exhibited any change in behavior. He does not take any blood thinning medications Review of Systems Eyes: reports: Reviewed and negative Cardiac: reports: Reviewed and negative Respiratory: reports: Reviewed and negative GI: denies: Nausea, Vomiting Neurologic: reports: Head injury. denies: Generalized weakness, Focal weakness, Numbness, Near syncope, Syncope, Confused, Altered mental status, Headache, LOC PD PAST MEDICAL HISTORY - Past Medical History Cardiovascular: Hypertension, Arrhythmia, Other Respiratory: None Neuro: None Endocrine/Autoimmune: None GI: None, Colon polyps : Retention HEENT: Chronic hearing loss, Chronic hearing loss Psych: None Musculoskeletal: None, Chronic back pain Derm: None - Past Surgical History Past Surgical History: Yes General: Colonoscopy Ortho: Spine surgery Derm: Skin cancer surgery - Present Medications Home Medications: Ambulatory Orders Medication Instructions Recorded Confirmed Aspirin [Aspirin EC] 81 mg PO DAILY 04/17/20 03/02/23 Cholecalciferol (Vitamin D3) 5,000 unit PO DAILY 04/17/20 03/02/23 [Vitamin D3] Lisinopril [Zestril] 20 mg PO BID 04/17/20 03/02/23 [place]-3 Fatty Acids/Fish Oil 1 cap PO DAILY 04/17/20 03/02/23 [[place]-3 Fish Oil 1,000 mg Sfgl] Pregabalin [Lyrica] 200 mg PO QPM 10/05/20 03/02/23 rOPINIRole [Requip] 3 mg PO QPM 01/28/21 03/02/23 Spironolactone [Aldactone] 25 mg PO DAILY 10/07/21 03/02/23 Naproxen Sodium [Aleve] 220 mg PO PRN PRN 03/11/22 03/02/23 amLODIPine [Norvasc] 5 mg PO DAILY #90 tablet 03/11/22 03/02/23 predniSONE [Deltasone] 20 mg PO BID 03/11/22 03/02/23 Meloxicam [Mobic] 7.5 mg PO BID PRN #20 tablet 10/06/22 03/02/23 - Allergies Allergies/Adverse Reactions: Allergies Allergy/AdvReac Type Severity Reaction Status Date / Time chlorhexidine AdvReac Rash Verified 10/06/22 09:29 - Social History Does the pt smoke?: No Smoking Status: Never smoker Does the pt drink ETOH?: Yes Does the pt have substance abuse?: No - Immunizations Immunizations are current?: No - POLST Patient has POLST: No PD ED PE NORMAL - Vitals Vital signs reviewed: Yes - General General: Alert and oriented X 3, No acute distress, Well developed/nourished - HEENT HEENT: PERRL, EOMI - Neck Neck: No bony TTP - Cardiac Cardiac: RRR - Respiratory Respiratory: No respiratory distress, Clear bilaterally - Neuro Neuro: Alert and oriented X 3, rn icu 2-12 intact, No motor deficit, No sensory deficit, Normal speech Eye Opening: Spontaneous Motor: Obeys Commands Verbal: Oriented GCS Score: 15 - Psych Psych: Normal mood, Normal affect PD ED PE EXPANDED - Cardiac Cardiac: Murmur Present (3/6 [place] cardiac base) Results - Vitals Vitals: Vital Signs - 24 hr 06/20/23 20:23 Temperature 37.2 C Heart Rate 58 L Respiratory 16 Rate Blood Pressure 163/69 H O2 Saturation 98 Oxygen O2 Source Room air PD Medical Decision Making - ED course Complexity details: considered differential, d/w patient, d/w family ED course: At this time, emergent study is not indicated. Given situation, the study most heavily considered is CT of the head. I discussed this option with the patient, but my recommendation is that I do not see any indication at this time. Patient agrees with not performing any study until/unless he develops new/worsening signs/symptoms. These were carefully reviewed with the patient, starting with worsening headache, but also to include change in vision, change in mental status, weakness, numbness, vomiting.Should he develop any of these, I have instructed him to call 911. Because no studies such as CT of the head were performed tonight, I emphasized to him that he should have a low threshold for calling 911; I told him that if he is even considering needing to come back to the emergency department, he simply should. Departure - Departure Disposition: 01 Home, Self Care Clinical Impression: Head injury Qualifiers: Encounter type: initial encounter Qualified Code(s): S09.90XA - Unspecified injury of head, initial encounter Condition: Good Instructions: ED Head Injury Closed Sleep Mon Comments: There are no test that were performed tonight. The test that was most heavily considered is CT scan of your head. As we discussed, at this time, I do not feel that this test is indicated. However, you should have a low threshold for returning to the emergency department if symptoms worsen or if you develop new/concerning signs/symptoms. The most concerning symptom for a serious head injury (bleeding inside of the head near the brain) would be severe headache. If you develop a headache that is steadily worsening, or at any time becomes what you would consider a "bad headache", you should return immediately to the emergency department. Other signs/symptoms to be concerned about (that would indicate the need to return to the ER) would be vomiting, change in vision, weakness, numbness, confusion. Forms: PCP List
== END 2023-06-20 21:54 | disposition home or self-care (01) ==
LOC: ED 20:11
DX: S09.90XA Unspecified injury of head, initial encounter (principal); W19.XXXA Unspecified fall, initial encounter; I10 Essential (primary) hypertension
CPT/HCPCS: 99281; 99283

== ENCOUNTER 2023-10-14 10:25 | Outpatient (CLI) | payer MEDICARE, OTHER ==
[2023-10-14 10:50] LABS: ALBUMIN 3.9 g/dL (3.2-5.5); ALBUMIN/GLOBULIN RATIO 1.6 (1.0-2.2); BILIRUBIN,TOTAL 0.8 mg/dL (0.2-1.0); CALCIUM 10.4 mg/dL (8.5-10.3); CREATININE 0.9 mg/dL (0.6-1.3); POTASSIUM 4.5 mmol/L (3.5-4.5); TOTAL PROTEIN 6.3 g/dL (6.4-8.9)
[2023-10-14 13:38] LABS: ESTIMATED AVERAGE GLUCOSE 123 mg/dL (70-100); HEMOGLOBIN A1c% 5.9 % (4.27-6.07)
== END 2023-10-14 10:26 | disposition home or self-care (01) ==
LOC: LAB 10:25
PROVIDERS: ATTEND Nurse Practitioner Adult Health
DX: I10 Essential (primary) hypertension (principal); R73.03 Prediabetes
CPT/HCPCS: 36415; 80053; 83036

== ENCOUNTER 2024-02-27 08:23 | Outpatient (CLI) | payer MEDICARE, OTHER ==
[2024-02-27 08:43] LABS: BASOPHILS # (AUTO) 0.1 10^3/uL (0.0-0.1); BASOPHILS % (AUTO) 0.7 %; EOSINOPHILS # (AUTO) 0.1 10^3/uL (0.0-0.7); EOSINOPHILS % (AUTO) 1.7 %; HCT - HEMATOCRIT 45.8 % (42.0-52.0); LYMPHOCYTES # (AUTO) 1.7 10^3/uL (1.5-3.5); LYMPHOCYTES % (AUTO) 24.4 %; MEAN CORPUSCULAR HEMOGLOBIN 32.5 pg (27.0-31.0); MEAN CORPUSCULAR HGB CONC 32.8 g/dL (32.0-36.0); MEAN CORPUSCULAR VOLUME 99.3 fL (80.0-94.0); MEAN PLATELET VOLUME 10.2 fL (7.4-11.4); MONOCYTES # (AUTO) 0.6 10^3/uL (0.0-1.0); MONOCYTES % (AUTO) 8.4 %; NEUTROPHILS # (AUTO) 4.5 10^3/uL (1.5-6.6); NEUTROPHILS % (AUTO) 64.4 %; PLT - PLATELET COUNT 148 10^3/uL (130-450); RED BLOOD COUNT 4.61 10^6/uL (4.70-6.10)
[2024-02-27 08:59] LABS: ALBUMIN 4.3 g/dL (3.2-5.5); ALBUMIN/GLOBULIN RATIO 1.8 (1.0-2.2); ALKALINE PHOSPHATASE 57 IU/L (42-121); ALT ALANINE AMINOTRANSFERASE 26 IU/L (10-60); AST ASPARTATE AMINOTRANSFERASE 22 IU/L (10-42); BILIRUBIN,TOTAL 1.1 mg/dL (0.2-1.0); BUN - BLOOD UREA NITROGEN 25 mg/dL (6-20); CALCIUM 10.9 mg/dL (8.5-10.3); CARBON DIOXIDE - CO2 27 mmol/L (21-32); CHLORIDE 104 mmol/L (101-111); CHOL/HDL RATIO 4.6 (<5.0); CHOLESTEROL 158 mg/dL; CREATININE 0.9 mg/dL (0.6-1.3); GFR - MDRD 81 (>89); GLUCOSE 101 mg/dL (74-104); HDL CHOLESTEROL 34 mg/dL; LDL CHOLESTEROL,CALCULATED 94 mg/dL; LDL/HDL RATIO 2.8 (<3.6); POTASSIUM 4.6 mmol/L (3.5-4.5); SODIUM 136 mmol/L (135-145); TOTAL PROTEIN 6.7 g/dL (6.4-8.9); TRIGLYCERIDES 149 mg/dL (48-352); VLDL CHOLESTEROL 30 mg/dL
[2024-02-27 09:11] LABS: THYROID STIMULATING HORMONE 1.42 uIU/mL (0.34-5.60)
[2024-02-27 13:06] LABS: ESTIMATED AVERAGE GLUCOSE 120 mg/dL (70-100); HEMOGLOBIN A1c% 5.8 % (4.27-6.07)
== END 2024-02-27 08:24 | disposition home or self-care (01) ==
LOC: LAB 08:23
PROVIDERS: ATTEND Internal Medicine
DX: R73.03 Prediabetes (principal); E55.9 Vitamin D deficiency, unspecified; E53.8 Deficiency of other specified B group vitamins; I44.1 Atrioventricular block, second degree
CPT/HCPCS: 36415; 80053; 80061; 82306; 82607; 83036; 83721; 84443; 85025

== ENCOUNTER 2024-04-07 08:00 | Outpatient (CLI) | payer MEDICARE, OTHER | END 2024-04-07 23:59 | disposition home or self-care (01) | LOC: PC 08:00 | PROVIDERS: ATTEND Nurse Practitioner Adult Health | DX: Z51.5 Encounter for palliative care (principal); F41.9 Anxiety disorder, unspecified; M48.062 Spinal stenosis, lumbar region with neurogenic claudication; C92.41 Acute promyelocytic leukemia, in remission; G25.81 Restless legs syndrome; H91.93 Unspecified hearing loss, bilateral; Z79.899 Other long term (current) drug therapy | CPT/HCPCS: 99215 ==